=== PATIENT | female | born 1970 | race Caucasian/White ===

== ENCOUNTER 2021-02-06 09:05 | Emergency (ER) | payer OTHER, MEDICAID, SELFPAY ==
[2021-02-06] VITALS (51 sets, daily range): BP systolic 106–177; BP diastolic 55–86; PULSE 91–118; RESP 18–54; TEMP 36.5; O2SAT 86–96; BMI 40.7
--- NOTE | 2021-02-06 09:19 | DI.RAD.S_ITS ---
PROCEDURE: XR CHEST 1V INDICATIONS: dyspnea TECHNIQUE: One view of the chest was acquired. COMPARISON: [facility], CR, XR CHEST 2 VIEWS, 04/06/2018, 14:23. [facility], CT, CT ANGIO CHEST, 11/15/2017, 11:56. FINDINGS: Surgical changes and devices: None. Lungs and pleura: Patchy bilateral interstitial infiltrates are seen. No pleural effusions or pneumothorax. Mediastinum: Mediastinal contours appear normal. Heart size is mildly enlarged. Bones and chest wall: No suspicious bony lesions. Overlying soft tissues appear unremarkable. IMPRESSION: Bilateral interstitial infiltrates are seen, with mild cardiomegaly. Please consider COVID pneumonia versus CHF. Dictated by: Sky Ann M.D. on 02/06/2021 at 8:41 Approved by: Sky Ann M.D. on 02/06/2021 at 8:42
[2021-02-06] MEDS: ASPIRIN 81 MG CHEW TAB 324 MG PO (09:27)
[2021-02-06] MEDS: MORPHINE 4 MG/ML INJ IV ×3 (09:27→15:58)
[2021-02-06 09:38] LABS: COVID19 -Nasal RAPID Negative (Negative)
[2021-02-06] MEDS: ONDANSETRON 4 MG/2 ML INJ IV (09:42)
--- NOTE | 2021-02-06 09:48 | DI.CT.S_ITS ---
PROCEDURE: CT CHEST ABD PEL W CON INDICATIONS: LUQ pain with resp distress TECHNIQUE: After the administration of intravenous contrast, axial sections acquired from the supraclavicular neck to the pubic symphysis. Coronal and sagittal reformats were performed. For radiation dose reduction, the following was used: automated exposure control, adjustment of mA and/or kV according to patient size. COMPARISON: [facility], CT, CT ABDOMEN PELVIS WITH CONTRAST, 10/23/2017, 13:07. [facility], CT, CT ANGIO CHEST, 11/15/2017, 11:56. [facility], CR, XR CHEST 1V, 02/06/2021, 9:22. FINDINGS: Image quality: Excellent. CHEST: Lower Neck: No enlarged lymph nodes. Thyroid: There is a 1.7 cm low-density nodule seen within the right thyroid. Axillae: No enlarged lymph nodes. Chest Wall: Unremarkable. Lungs and Airways: Mild patchy areas ground-glass opacity/interstitial infiltrates are seen. No consolidation or suspicious nodules. Pleura: No pneumothorax. There is a trace left-sided pleural effusion. Heart: Heart size is mildly enlarged. No pericardial effusion. Thoracic Vessels: The aorta and pulmonary arteries demonstrate normal size. Mediastinum and Carole: No enlarged lymph nodes. Esophagus: No wall thickening. No hiatal hernia. ABDOMEN: Liver: Unremarkable. Gallbladder: Removed. Biliary ducts: Unremarkable. Pancreas: Unremarkable. Spleen: Splenomegaly is again seen, measuring 15 cm AP. Adrenal Glands: Unremarkable. Kidneys and Ureters: Unremarkable. The previously described left renal cyst is no longer seen. Stomach and Bowel: In this patient with this given history, scrutiny is given to bowel within the left upper quadrant. No significant abnormalities can be seen. No significant gastric abnormality can be seen. The small bowel loops and colon are unremarkable. A normal appendix is incidentally noted. Peritoneum: No abnormal intraperitoneal fluid. No free air. Ventral Wall: No hernia. Abdominal Nodes: No retroperitoneal or mesenteric adenopathy by size criteria. Vessels: Aorta and inferior vena cava are normal in size. PELVIS: Pelvic Organs: Unremarkable. The uterus appears normal for age. No adnexal masses are seen. The IUD is seen at its expected location. Bladder: Unremarkable. Pelvic Nodes: No enlarged lymph nodes. Miscellaneous: No inguinal hernias are seen. Bones: This patient has transitional lumbar anatomy. This patient has 12 pairs of ribs. The L5 level is transitional and highly sacralized on the right side. Focal degenerative change is seen at L4-L5 and L5-S1. IMPRESSION: Patchy ground-glass opacities/interstitial infiltrates are seen. In this patient with mild cardiomegaly, differential diagnosis includes pulmonary edema versus atypical infection (including COVID pneumonia). However, a history of a recent negative COVID test is given. Trace left-sided pleural effusion. A cause of left upper quadrant pain is not seen. 1.7 cm right thyroid low-density nodule seen. When clinically appropriate, please consider a dedicated thyroid ultrasound for further evaluation. Incidental note is made of: Cholecystectomy Splenomegaly, as before Resolution of the previously seen left renal cyst Normal appendix IUD Transitional lumbar anatomy Focal lower lumbar spine degenerative change Dictated by: Sky Ann M.D. on 02/06/2021 at 9:14 Approved by: Sky Ann M.D. on 02/06/2021 at 9:23
[2021-02-06 09:54] LABS: pH ABG 7.42 (7.35-7.45)
[2021-02-06 09:55] LABS: Fractionated Inspired Oxygen 40; HCO3 ABG 20 mmol/L (22-26); Oxygen Saturation ABG 89 % (95-100); PCO2 ABG 29.9 mmHg (35-45); PO2 ABG 54 mmHg (80-100); TCO2 ABG 20 mmol/L (21-31)
--- NOTE | 2021-02-06 09:55 | ED.GENADULT ---
HPI - General Adult General Chief complaint: Abdominal Pain Stated complaint: Severe pain in left Abd Time Seen by Provider: 02/06/21 09:05 History of Present Illness HPI narrative: 50-year-old woman with a history of pulmonary hypertension, congestive heart failure followed at the [facility], CPAP in the evening with 1-2 L of oxygen comes in complaining of severe left upper quadrant pain. Pain is been increasing for the last 4 days and she currently describes it as 10/10. It radiates through to the back and up into her chest. She feels that she is her usual short of breath but describes no specific chest pain or palpitations. She does not describe orthopnea. She feels that she is not more dyspneic than her baseline. She has had a couple episodes dry heaving secondary to pain but no overt emesis. She notes that a bowel movement slightly helped with pain and flatus definitely helps with the pain. She describes no increase in lower extremity edema. She has not had a headache. No fevers or cough. She did have COVID in December. Related Data Home Medications Medication Instructions Recorded Confirmed albuterol sulfate 90 mcg/actuation 90 mcg INHALATION BID 02/06/21 02/06/21 aerosol inhaler ambrisentan 10 mg tablet 10 mg PO DAILY 02/06/21 02/06/21 budesonide-formoterol HFA 160 1 puff INHALATION BID 02/06/21 02/06/21 mcg-4.5 mcg/actuation aerosol inhaler (Symbicort) bupropion HCl 150 mg 24 hr tablet, 150 mg PO DAILY 02/06/21 02/06/21 extended release fluoxetine 60 mg tablet 60 mg PO DAILY 02/06/21 02/06/21 furosemide 40 mg tablet 40 mg PO DAILY 02/06/21 02/06/21 levothyroxine 125 mcg tablet 125 mcg PO BID 02/06/21 02/06/21 potassium chloride 10 mEq 10 meq PO DAILY 02/06/21 02/06/21 tablet,extended release selexipag 800 mcg tablet (Uptravi) 800 mcg PO DAILY 02/06/21 02/06/21 spironolactone 50 mg tablet 50 mg PO DAILY 02/06/21 02/06/21 tadalafil (pulm. hypertension) 20 20 mg PO DAILY 02/06/21 02/06/21 mg tablet (pulmonary hypertension) Allergies Allergy/AdvReac Type Severity Reaction Status Date / Time Penicillins AdvReac Verified 02/06/21 09:27 Review of Systems Review of Systems Narrative: Remainder of complete review of systems is otherwise unremarkable except for that included in the HPI. Patient History Medical History (Updated 02/06/21 @ 16:30 by Poly Christianson MD) Congestive heart failure Morbid obesity Pulmonary hypertension Sleep apnea Social History Smoking Status: Current every day smoker Smoking Status: Current every day smoker alcohol intake frequency: a few times a week Alcohol type: hard liquor Substance Use Type: does not use Exam Narrative Exam Narrative: General: Chronically ill-appearing in significant distress clutching her left upper quadrant, history is augmented by her daughter secondary to patient's pain HEENT: Moist mucous membranes, normal sclera with reactive pupils, Neck: No JVD, supple Respiratory: Lungs with scattered crackles in all lung ellis but no dramatic wheezing or rhonchi. And symmetrical air movement Cardiac: Tachycardic but otherwise Regular rate and rhythm no murmurs no bruits Abdomen: Soft, significantly tender in the left upper quadrant without rebound or guarding. This pain does not extend into palpable pain up into the thorax. Good bowel tones, no flank pain Skin: Flushed and dry, no rashes Neurologic: Grossly neurologically intact with no obvious asymmetries or abnormalities Extremities: No trauma, well perfused, no lower extremity edema Psych: Cooperative, appropriate insight and affect Initial Vital Signs Initial Vital Signs: Vital Signs Temperature 97.7 F 02/06/21 09:14 Pulse Rate 118 H 02/06/21 09:14 Respiratory Rate 34 H 02/06/21 09:14 Blood Pressure 177/80 H 02/06/21 09:14 Pulse Oximetry 87 L 02/06/21 09:14 Course Orders Ordered: ED Orders 02/06/21 09:45 Respiratory Panel (Film Array) Stat 02/06/21 09:47 ABG [Arterial Blood Gas] Stat 02/06/21 09:48 CT chest abd pel w con Stat 02/06/21 10:01 High flow/High humidity nasal NOW 02/06/21 12:17 EKG-12 Lead Stat 02/06/21 16:28 COVID19 - ADMIT ([employer] swab/PCR) Stat Discontinued Medications Albuterol/Ipratropium (Albuterol/Ipratropium 3 Ml Ampul) 3 ml INH NOW ONE Stop: 02/06/21 12:49 Last Admin: 02/06/21 12:52 Dose: 3 ml Documented by: RK Aspirin (Aspirin 81 Mg Chew Tab) 324 mg PO NOW ONE Stop: 02/06/21 09:19 Last Admin: 02/06/21 09:27 Dose: 324 mg Documented by: CANDICE Budesonide (Budesonide 0.5 Mg/2 Ml Neb) 0.5 mg INH NOW ONE Stop: 02/06/21 12:49 Last Admin: 02/06/21 12:52 Dose: 0.5 mg Documented by: RK Furosemide (Furosemide 40 Mg/4 Ml Vial) 20 mg IV NOW ONE Stop: 02/06/21 16:07 Last Admin: 02/06/21 16:25 Dose: 20 mg Documented by: CANDICE Azithromycin 500 mg/ Dextrose 250 mls @ 250 mls/hr IV NOW ONE Stop: 02/06/21 16:07 Last Infusion: 02/06/21 18:28 Dose: 0 mls/hr Documented by: Admin: 02/06/21 17:25 Dose: 250 mls/hr Documented by: CANDICE Ceftriaxone Sodium 2,000 mg/ (Sodium Chloride) 100 mls @ 200 mls/hr IV NOW ONE Stop: 02/06/21 16:07 Last Infusion: 02/06/21 17:07 Dose: 0 mls/hr Documented by: Admin: 02/06/21 16:25 Dose: 200 mls/hr Documented by: CANDICE Methylprednisolone (Methylprednisolone 125 Mg/2 Ml Vial) 60 mg IV NOW ONE Stop: 02/06/21 14:55 Last Admin: 02/06/21 15:46 Dose: 60 mg Documented by: CANDICE Morphine Sulfate (Morphine 4 Mg/Ml Inj) 4 mg IV NOW ONE Stop: 02/06/21 09:19 Last Admin: 02/06/21 09:27 Dose: 4 mg Documented by: CANDICE Morphine Sulfate (Morphine 4 Mg/Ml Inj) 4 mg IV NOW ONE Stop: 02/06/21 12:45 Last Admin: 02/06/21 12:56 Dose: 4 mg Documented by: CANDICE Morphine Sulfate (Morphine 4 Mg/Ml Inj) 4 mg IV NOW ONE Stop: 02/06/21 12:46 Last Admin: 02/06/21 12:47 Dose: Not Given Documented by: SVETLANA Morphine Sulfate (Morphine 4 Mg/Ml Inj) 4 mg IV NOW ONE Stop: 02/06/21 15:56 Last Admin: 02/06/21 15:58 Dose: 4 mg Documented by: CANDICE Ondansetron HCl (Ondansetron 4 Mg/2 Ml Inj) 4 mg IV NOW ONE Stop: 02/06/21 09:39 Last Admin: 02/06/21 09:42 Dose: 4 mg Documented by: SVETLANA Potassium Chloride (Potassium Chloride 20 Meq Tab) 40 meq PO NOW ONE Stop: 02/06/21 14:55 Last Admin: 02/06/21 15:46 Dose: 40 meq Documented by: CANDICE Vital Signs Vital signs: Vital Signs - 8 hr 02/06/21 10:30 02/06/21 10:31 02/06/21 10:45 Pulse Rate 100 H 100 H 100 H Respiratory Rate 26 H 21 24 Blood Pressure 112/56 L 115/58 L Pulse Oximetry 91 91 02/06/21 11:00 02/06/21 11:11 02/06/21 11:15 Pulse Rate 101 H 100 H 101 H Respiratory Rate 21 24 21 Blood Pressure 118/57 L 115/58 L 121/58 L Pulse Oximetry 87 L 90 L 89 L 02/06/21 11:30 02/06/21 11:45 02/06/21 12:00 Pulse Rate 104 H 100 H 101 H Respiratory Rate 21 18 30 H Blood Pressure Pulse Oximetry 94 95 93 02/06/21 12:15 02/06/21 12:30 02/06/21 12:45 Pulse Rate 103 H 106 H 105 H Respiratory Rate 30 H 24 27 H Blood Pressure Pulse Oximetry 89 L 88 L 86 L 02/06/21 12:57 02/06/21 13:00 02/06/21 13:15 Pulse Rate 91 H 106 H 105 H Respiratory Rate 22 26 H 33 H Blood Pressure Pulse Oximetry 91 88 L 93 02/06/21 13:22 02/06/21 13:30 02/06/21 13:45 Pulse Rate 105 H 105 H 105 H Respiratory Rate 29 H 40 H 24 Blood Pressure 113/59 L 125/58 L Pulse Oximetry 93 96 92 02/06/21 14:00 02/06/21 14:15 02/06/21 14:30 Pulse Rate 105 H 105 H 105 H Respiratory Rate 22 32 H 35 H Blood Pressure 140/79 130/64 125/67 Pulse Oximetry 93 92 92 02/06/21 14:45 02/06/21 15:00 02/06/21 15:15 Pulse Rate 108 H 105 H 101 H Respiratory Rate 35 H 32 H 21 Blood Pressure 123/70 115/63 109/57 L Pulse Oximetry 90 L 88 L 92 02/06/21 15:30 02/06/21 15:45 02/06/21 16:00 Pulse Rate 102 H 106 H 104 H Respiratory Rate 26 H 33 H 40 H Blood Pressure 113/65 130/75 Pulse Oximetry 93 88 L 90 L 02/06/21 16:01 02/06/21 16:05 02/06/21 16:15 Pulse Rate 104 H 103 H 100 H Respiratory Rate 33 H 24 25 H Blood Pressure 133/70 133/81 Pulse Oximetry 88 L 90 L 93 02/06/21 16:16 02/06/21 16:30 02/06/21 16:45 Pulse Rate 100 H 100 H 110 H Respiratory Rate 53 H 31 H 54 H Blood Pressure 106/55 L 115/64 Pulse Oximetry 93 93 90 L 02/06/21 16:46 Pulse Rate 104 H Respiratory Rate 46 H Blood Pressure 140/76 Pulse Oximetry 90 L Medical Decision Making Lab Data Result diagrams: 02/06/21 09:28 02/06/21 09:28 Labs: Lab Results 02/06/21 02/06/21 02/06/21 Range/Units 09:15 09:28 09:28 WBC 5.2 (4.5-11.0) X10^3/uL RBC 3.75 L (4.0-5.2) X10^6/uL Hgb 10.1 L (12.0-16.0) g/dL Hct 30.9 L (36-46) % MCV 82.5 (80-100) fL MCH 27.0 (26-34) PG MCHC 32.7 (30-36) % RDW 16.5 H (11.6-14.8) % Plt Count 252 (150-400) X10^3/uL Neut % (Auto) 76.8 H (50-75) % Lymph % (Auto) 14.3 L (25-40) % [place] % (Auto) 7.7 (3-14) % Eos % (Auto) 0.9 L (2-4) % Baso % (Auto) 0.3 (0-2) % Neut # (Auto) 4000 (8102-8758) /uL Lymph # (Auto) 700 L (8384-3614) /uL [place] # (Auto) 400 (0-900) /uL Eos # (Auto) 0 (0-450) /uL Baso # (Auto) 0 (0-100) /uL PT 11.7 (10.1-12.7) SECONDS INR 1.1 (0.9-1.3) APTT 26 L (26.4-36.2) SECONDS ABG pH (7.35-7.45) ABG pCO2 (35-45) mmHg ABG pO2 (80-100) mmHg ABG HCO3 (22-26) mmol/L ABG Total CO2 (21-31) mmol/L ABG O2 Saturation (95-100) % ABG Base Excess (-2-2) mmol/L FiO2 Sodium (137-145) mmol/L Potassium (3.4-5.1) mmol/L Chloride (98-107) mmol/L Carbon Dioxide (22-32) mmol/L BUN (7-17) mg/dL Creatinine (0.52-1.04) mg/dL Estimated GFR (>60) mL/min BUN/Creatinine Ratio (6-22) Glucose (70-100) mg/dL Lactate (0.7-2.1) mmol/L Calcium (8.4-10.2) mg/dL Total Bilirubin (0.2-1.3) mg/dL AST (14-36) IU/L ALT (<35) IU/L Alkaline Phosphatase (38-126) U/L Troponin I (0.01-0.034) ng/mL NT-Pro-B Natriuret Pep (<125) pg/mL Total Protein (6.3-8.2) g/dL Albumin (3.5-5.0) g/dL Globulin (1.7-4.1) g/dL Albumin/Globulin Ratio (1.0-2.8) Lipase (23-300) U/L Chlamy pneumoniae PCR (Not Detect) Adenovirus (PCR) (Not Detect) B. pertussis DNA (PCR) (Not Detecte) B.parapertussis DNA PCR (Not Detecte) Coronavirus OC43 (PCR) (Not Detect) Coronavirus HKU1 (PCR) (Not Detect) Coronavirus 229E (PCR) (Not Detect) SARS-CoV-2 (PCR) Negative (Negative) Coronavirus NL63 (PCR) (Not Detect) Human Metapneumovir PCR (Not Detect) Influenza Type A (PCR) (Not Detect) Influenza Type B (PCR) (Not Detect) M. pneumoniae (PCR) (Not Detect) Parainfluenza 1 (PCR) (Not Detect) Parainfluenza 2 (PCR) (Not Detect) Parainfluenza 3 (PCR) (Not Detect) Parainfluenza 4 (PCR) (Not Detect) RSV (PCR) (Not Detect) Entero/Rhino (PCR) (Not Detect) 02/06/21 02/06/21 02/06/21 Range/Units 09:28 09:28 09:28 WBC (4.5-11.0) X10^3/uL RBC (4.0-5.2) X10^6/uL Hgb (12.0-16.0) g/dL Hct (36-46) % MCV (80-100) fL MCH (26-34) PG MCHC (30-36) % RDW (11.6-14.8) % Plt Count (150-400) X10^3/uL Neut % (Auto) (50-75) % Lymph % (Auto) (25-40) % [place] % (Auto) (3-14) % Eos % (Auto) (2-4) % Baso % (Auto) (0-2) % Neut # (Auto) (1266-6728) /uL Lymph # (Auto) (9926-6814) /uL [place] # (Auto) (0-900) /uL Eos # (Auto) (0-450) /uL Baso # (Auto) (0-100) /uL PT (10.1-12.7) SECONDS INR (0.9-1.3) APTT (26.4-36.2) SECONDS ABG pH (7.35-7.45) ABG pCO2 (35-45) mmHg ABG pO2 (80-100) mmHg ABG HCO3 (22-26) mmol/L ABG Total CO2 (21-31) mmol/L ABG O2 Saturation (95-100) % ABG Base Excess (-2-2) mmol/L FiO2 Sodium 131 L (137-145) mmol/L Potassium 3.1 L (3.4-5.1) mmol/L Chloride 98 (98-107) mmol/L Carbon Dioxide 22 (22-32) mmol/L BUN 6 L (7-17) mg/dL Creatinine 0.68 (0.52-1.04) mg/dL Estimated GFR > 60.0 (>60) mL/min BUN/Creatinine Ratio 8.8 (6-22) Glucose 83 (70-100) mg/dL Lactate 2.2 H (0.7-2.1) mmol/L Calcium 8.4 (8.4-10.2) mg/dL Total Bilirubin 0.5 (0.2-1.3) mg/dL AST 23 (14-36) IU/L ALT 13 (<35) IU/L Alkaline Phosphatase 99 (38-126) U/L Troponin I < 0.012 (0.01-0.034) ng/mL NT-Pro-B Natriuret Pep 129 H (<125) pg/mL Total Protein 7.8 (6.3-8.2) g/dL Albumin 3.7 (3.5-5.0) g/dL Globulin 4.1 (1.7-4.1) g/dL Albumin/Globulin Ratio 0.9 L (1.0-2.8) Lipase 92 (23-300) U/L Chlamy pneumoniae PCR (Not Detect) Adenovirus (PCR) (Not Detect) B. pertussis DNA (PCR) (Not Detecte) B.parapertussis DNA PCR (Not Detecte) Coronavirus OC43 (PCR) (Not Detect) Coronavirus HKU1 (PCR) (Not Detect) Coronavirus 229E (PCR) (Not Detect) SARS-CoV-2 (PCR) (Negative) Coronavirus NL63 (PCR) (Not Detect) Human Metapneumovir PCR (Not Detect) Influenza Type A (PCR) (Not Detect) Influenza Type B (PCR) (Not Detect) M. pneumoniae (PCR) (Not Detect) Parainfluenza 1 (PCR) (Not Detect) Parainfluenza 2 (PCR) (Not Detect) Parainfluenza 3 (PCR) (Not Detect) Parainfluenza 4 (PCR) (Not Detect) RSV (PCR) (Not Detect) Entero/Rhino (PCR) (Not Detect) 02/06/21 02/06/21 02/06/21 Range/Units 09:45 09:47 13:00 WBC (4.5-11.0) X10^3/uL RBC (4.0-5.2) X10^6/uL Hgb (12.0-16.0) g/dL Hct (36-46) % MCV (80-100) fL MCH (26-34) PG MCHC (30-36) % RDW (11.6-14.8) % Plt Count (150-400) X10^3/uL Neut % (Auto) (50-75) % Lymph % (Auto) (25-40) % [place] % (Auto) (3-14) % Eos % (Auto) (2-4) % Baso % (Auto) (0-2) % Neut # (Auto) (3260-4125) /uL Lymph # (Auto) (9337-9590) /uL [place] # (Auto) (0-900) /uL Eos # (Auto) (0-450) /uL Baso # (Auto) (0-100) /uL PT (10.1-12.7) SECONDS INR (0.9-1.3) APTT (26.4-36.2) SECONDS ABG pH 7.42 (7.35-7.45) ABG pCO2 29.9 L (35-45) mmHg ABG pO2 54 L (80-100) mmHg ABG HCO3 20 L (22-26) mmol/L ABG Total CO2 20 L (21-31) mmol/L ABG O2 Saturation 89 L (95-100) % ABG Base Excess -5.0 L (-2-2) mmol/L FiO2 40 Sodium (137-145) mmol/L Potassium (3.4-5.1) mmol/L Chloride (98-107) mmol/L Carbon Dioxide (22-32) mmol/L BUN (7-17) mg/dL Creatinine (0.52-1.04) mg/dL Estimated GFR (>60) mL/min BUN/Creatinine Ratio (6-22) Glucose (70-100) mg/dL Lactate 0.8 (0.7-2.1) mmol/L Calcium (8.4-10.2) mg/dL Total Bilirubin (0.2-1.3) mg/dL AST (14-36) IU/L ALT (<35) IU/L Alkaline Phosphatase (38-126) U/L Troponin I (0.01-0.034) ng/mL NT-Pro-B Natriuret Pep (<125) pg/mL Total Protein (6.3-8.2) g/dL Albumin (3.5-5.0) g/dL Globulin (1.7-4.1) g/dL Albumin/Globulin Ratio (1.0-2.8) Lipase (23-300) U/L Chlamy pneumoniae PCR Not detected (Not Detect) Adenovirus (PCR) Not detected (Not Detect) B. pertussis DNA (PCR) Not detected (Not Detecte) B.parapertussis DNA PCR Not detected (Not Detecte) Coronavirus OC43 (PCR) Not detected (Not Detect) Coronavirus HKU1 (PCR) Not detected (Not Detect) Coronavirus 229E (PCR) Not detected (Not Detect) SARS-CoV-2 (PCR) Not detected (Negative) Coronavirus NL63 (PCR) Not detected (Not Detect) Human Metapneumovir PCR Not detected (Not Detect) Influenza Type A (PCR) Not detected (Not Detect) Influenza Type B (PCR) Not detected (Not Detect) M. pneumoniae (PCR) Not detected (Not Detect) Parainfluenza 1 (PCR) Not detected (Not Detect) Parainfluenza 2 (PCR) Not detected (Not Detect) Parainfluenza 3 (PCR) Not detected (Not Detect) Parainfluenza 4 (PCR) Not detected (Not Detect) RSV (PCR) Not detected (Not Detect) Entero/Rhino (PCR) Not detected (Not Detect) 02/06/21 Range/Units 16:28 WBC (4.5-11.0) X10^3/uL RBC (4.0-5.2) X10^6/uL Hgb (12.0-16.0) g/dL Hct (36-46) % MCV (80-100) fL MCH (26-34) PG MCHC (30-36) % RDW (11.6-14.8) % Plt Count (150-400) X10^3/uL Neut % (Auto) (50-75) % Lymph % (Auto) (25-40) % [place] % (Auto) (3-14) % Eos % (Auto) (2-4) % Baso % (Auto) (0-2) % Neut # (Auto) (4541-7612) /uL Lymph # (Auto) (6373-6788) /uL [place] # (Auto) (0-900) /uL Eos # (Auto) (0-450) /uL Baso # (Auto) (0-100) /uL PT (10.1-12.7) SECONDS INR (0.9-1.3) APTT (26.4-36.2) SECONDS ABG pH (7.35-7.45) ABG pCO2 (35-45) mmHg ABG pO2 (80-100) mmHg ABG HCO3 (22-26) mmol/L ABG Total CO2 (21-31) mmol/L ABG O2 Saturation (95-100) % ABG Base Excess (-2-2) mmol/L FiO2 Sodium (137-145) mmol/L Potassium (3.4-5.1) mmol/L Chloride (98-107) mmol/L Carbon Dioxide (22-32) mmol/L BUN (7-17) mg/dL Creatinine (0.52-1.04) mg/dL Estimated GFR (>60) mL/min BUN/Creatinine Ratio (6-22) Glucose (70-100) mg/dL Lactate (0.7-2.1) mmol/L Calcium (8.4-10.2) mg/dL Total Bilirubin (0.2-1.3) mg/dL AST (14-36) IU/L ALT (<35) IU/L Alkaline Phosphatase (38-126) U/L Troponin I (0.01-0.034) ng/mL NT-Pro-B Natriuret Pep (<125) pg/mL Total Protein (6.3-8.2) g/dL Albumin (3.5-5.0) g/dL Globulin (1.7-4.1) g/dL Albumin/Globulin Ratio (1.0-2.8) Lipase (23-300) U/L Chlamy pneumoniae PCR (Not Detect) Adenovirus (PCR) (Not Detect) B. pertussis DNA (PCR) (Not Detecte) B.parapertussis DNA PCR (Not Detecte) Coronavirus OC43 (PCR) (Not Detect) Coronavirus HKU1 (PCR) (Not Detect) Coronavirus 229E (PCR) (Not Detect) SARS-CoV-2 (PCR) Negative (Negative) Coronavirus NL63 (PCR) (Not Detect) Human Metapneumovir PCR (Not Detect) Influenza Type A (PCR) (Not Detect) Influenza Type B (PCR) (Not Detect) M. pneumoniae (PCR) (Not Detect) Parainfluenza 1 (PCR) (Not Detect) Parainfluenza 2 (PCR) (Not Detect) Parainfluenza 3 (PCR) (Not Detect) Parainfluenza 4 (PCR) (Not Detect) RSV (PCR) (Not Detect) Entero/Rhino (PCR) (Not Detect) Point of Care Testing Test Results Negative Urine Dip Bedside Urine Glucose Negative Bedside Urine Bilirubin - Negative Bedside Urine Ketone - Negative Urine Specific [place] 1.010 Bedside Urine Occult Blood - Negative Bedside Urine pH 6.0 Bedside Urine Protein - Negative Bedside Urine Urobilinogen - Negative Bedside Urine Nitrite - Negative Bedside Urine Leukocytes - Negative Esterase Point of care testing: Point of Care Testing Test Results Negative Urine Dip Bedside Urine Glucose Negative Bedside Urine Bilirubin - Negative Bedside Urine Ketone - Negative Urine Specific [place] 1.010 Bedside Urine Occult Blood - Negative Bedside Urine pH 6.0 Bedside Urine Protein - Negative Bedside Urine Urobilinogen - Negative Bedside Urine Nitrite - Negative Bedside Urine Leukocytes - Negative Esterase Imaging Data Chest x-ray: Radiologist's Impression: FINDINGS:? ? Surgical changes and devices:? None.? ? Lungs and pleura:? Patchy bilateral interstitial infiltrates are seen.? No pleural effusions or pneumothorax.? ? Mediastinum:? Mediastinal contours appear normal.? Heart size is mildly enlarged.? ? Bones and chest wall:? No suspicious bony lesions.? Overlying soft tissues appear unremarkable.? IMPRESSION:? Bilateral interstitial infiltrates are seen, with mild cardiomegaly.? Please consider COVID pneumonia versus CHF.? ? ? Dictated by: Sky Ann M.D. on 02/06/2021 at 8:41 ? ? CT scan - abdomen/pelvis: Radiologist's Impression: FINDINGS:? Image quality:? Excellent.? ? CHEST: Lower Neck: No enlarged lymph nodes.? Thyroid:? There is a 1.7 cm low-density nodule seen within the right thyroid. Axillae: No enlarged lymph nodes. Chest Wall:? Unremarkable.? ? Lungs and Airways:? Mild patchy areas ground-glass opacity/interstitial infiltrates are seen.? No consolidation or suspicious nodules. Pleura: No pneumothorax.? There is a trace left-sided pleural effusion.? ? Heart: Heart size is mildly enlarged.? No pericardial effusion. Thoracic Vessels: The aorta and pulmonary arteries demonstrate normal size.? Mediastinum and Carole: No enlarged lymph nodes.? Esophagus: No wall thickening. No hiatal hernia. ? ? ABDOMEN: Liver:? Unremarkable.? ? Gallbladder:? Removed.? ? Biliary ducts:? Unremarkable.? ? Pancreas:? Unremarkable.? ? Spleen:? Splenomegaly is again seen, measuring 15 cm AP. Adrenal Glands:? Unremarkable.? ? Kidneys and Ureters:? Unremarkable.? ? The previously described left renal cyst is no longer seen. ? Stomach and Bowel:? In this patient with this given history, scrutiny is given to bowel within the left upper quadrant.? No significant abnormalities can be seen.? No significant gastric abnormality can be seen.? The small bowel loops and colon are unremarkable.? A normal appendix is incidentally noted.? Peritoneum:? No abnormal intraperitoneal fluid.? No free air.? ? Ventral Wall: ? No hernia.? Abdominal Nodes:? No retroperitoneal or mesenteric adenopathy by size criteria.? Vessels:? Aorta and inferior vena cava are normal in size.? ? PELVIS: Pelvic Organs:? Unremarkable.? ? The uterus appears normal for age.? No adnexal masses are seen.? The IUD is seen at its expected location.? Bladder:? Unremarkable.? ? Pelvic Nodes: No enlarged lymph nodes.? Miscellaneous: No inguinal hernias are seen. ? ? ? Bones:? This patient has transitional lumbar anatomy.? This patient has 12 pairs of ribs. ?The L5 level is transitional and highly sacralized on the right side.? Focal degenerative change is seen at L4-L5 and L5-S1. ? ? IMPRESSION:? Patchy ground-glass opacities/interstitial infiltrates are seen.? In this patient with mild cardiomegaly, differential diagnosis includes pulmonary edema versus atypical infection (including COVID pneumonia).? However, a history of a recent negative COVID test is given. ? Trace left-sided pleural effusion. ? A cause of left upper quadrant pain is not seen. ? 1.7 cm right thyroid low-density nodule seen.? When clinically appropriate, please consider a dedicated thyroid ultrasound for further evaluation. ? Incidental note is made of: Cholecystectomy Splenomegaly, as before Resolution of the previously seen left renal cyst Normal appendix IUD Transitional lumbar anatomy Focal lower lumbar spine degenerative change ? Dictated by: Sky Ann M.D. on 02/06/2021 at 9:14 ? ? ECG Data Interpretation: Sinus rhythm, sinus tachycardia at 108 Poor baseline Prolonged QT at 664 No acute ischemic changes MDM Narrative Medical decision making narrative: 50-year-old woman with COPD D, pulmonary hypertension presents with severe left upper quadrant pain. Workup is relatively unremarkable. White blood cell count is not significantly elevated, her mild anemia at 10.1 and 30.9 seems chronic. Initial ABG shows a pH of 7.42 CO2 of 29.9 0 to at 54 on 40% FiO2 and bicarb of 20. Chemistry show mild hypokalemia. Lactic acid is minimally elevated and will be repeated. ProBNP is normal clinical exam does not suggest congestive heart failure. EKG does not suggest congestive heart failure in troponin is unremarkable. Pain is been adequately controlled at this time. She continues to have significant oxygenation needs and is currently on high-flow oxygen at 55 L and 50% currently at 95%. 1pm She was COVID positive in December and complete respiratory panel today shows no respiratory viruses including COVID. CT scan of chest abdomen and pelvis does not show a significant etiology for the severe left upper quadrant pain. Will discuss her care with her fuel pilot engineer at the [facility] 3pm will repage pulmonary. Patient was improve slightly with a DuoNeb however currently on 60 L and 60% with sats in the now upper 90 range. 310 call from RN at transfer center, will page pulmonology. Clinical data shared. 4pm Dr Koehler, pulmonary. Does recommend adding prophylactic antibiotics in the form of azithromycin and ceftriaxone. I reviewed fluid status and he did agree that 20 mg of IV Lasix would be a reasonable thing to add knowing that we can always add back in fluids if required. He agrees that transfer based on acute respiratory distress in setting of pulmonary hypertension does make sense and will check on bed status. Given the CT scan findings and chest x-ray appearance still most likely thing is a viral pneumonia etiology. He recommended a 2nd COVID test for confirmation of negativity. 420 updates reviewed with patient. She has not been vaccinated for COVID. She states that she has had the actual disease twice most recently in December. She had rapid PCR test as well as an extended viral panel both COVID negative today. We have an additional PCR test we typically use for our hospital admissions that we will again due to confirm negative COVID. 425 Dr Koehler, pulmonary. Can accept for transfer 5:38 all 3 PCR COVID tests available at this hospital are negative for COVID. Room is available and transport will be initiated. Will switch her from high-flow oxygen to BiPAP for transport Critical Care Time Critical Care Time Critical Care Time: Yes Total Critical Care Time: 44 Attestation: Critical care time is separate from other billable procedures. There is a high probability of a significant, sudden or life-threatening deterioration that requires my full and direct attention, intervention and personal management. This critical care time includes consultation with family and other consulting doctors, review of records, and interpretation of data from labs, EKGs and imaging as well as managements of acute respiratory failure uncertain etiology Discharge Plan Departure Patient Disposition: [facility] Clinical Impression: Pulmonary hypertension, Congestive heart failure, Morbid obesity, Sleep apnea Respiratory failure Qualifiers: Chronicity: acute Respiratory failure complication: hypoxia Qualified Code(s): J96.01 - Acute respiratory failure with hypoxia Prescriptions: No Action furosemide 40 mg tablet 40 mg PO DAILY 0RF potassium chloride 10 mEq tablet extended release 10 meq PO DAILY 0RF levothyroxine 125 mcg tablet 125 mcg PO BID 0RF albuterol sulfate 90 mcg/actuation HFA aerosol inhaler 90 mcg INHALATION BID 0RF spironolactone 50 mg tablet 50 mg PO DAILY 0RF bupropion HCl 150 mg tablet extended release 24 hr 150 mg PO DAILY 0RF budesonide-formoterol [Symbicort] 160-4.5 mcg/actuation HFA aerosol inhaler 1 puff INHALATION BID 0RF ambrisentan 10 mg tablet 10 mg PO DAILY 0RF fluoxetine 60 mg tablet 60 mg PO DAILY 0RF Uptravi 800 mcg tablet 800 mcg PO DAILY 0RF tadalafil (pulm. hypertension) 20 mg tablet 20 mg PO DAILY 0RF
--- NOTE | 2021-02-06 09:56 | PC.NURSE ---
Pt arrived clutching LUQ abdomen. Wretching and vomiting bile. reports pain that started on the R 4 days ago and progressed to L. h/o pulm htn and CHF. tachypneic in 30's and SPO2 84-87%. states she uses CPAP on 4.2L at night. placed on 5L NC with sats 88-92%. rapid covid negative and RT called to place pt on HHFNC instead of bipap d/t concern for vomiting.
[2021-02-06 09:59] LABS: Add Manual Diff / Slide Review NO; Basophils Absolute Auto 0 /uL (0-100); Basophils Percent Auto 0.3 % (0-2); Eosinophils Absolute Auto 0 /uL (0-450); Eosinophils Percent Auto 0.9 % (2-4); Hematocrit 30.9 % (36-46); Hemoglobin 10.1 g/dL (12.0-16.0); Lymphocytes Absolute Auto 700 /uL (1100-4500); Lymphocytes Percent Auto 14.3 % (25-40); Mean Corpuscular HGB Conc 32.7 % (30-36); Mean Corpuscular Volume 82.5 fL (80-100); Monocytes Absolute Auto 400 /uL (0-900); Monocytes Percent Auto 7.7 % (3-14); Neutrophils Absolute Auto 4000 /uL (1500-7000); Neutrophils Percent Auto 76.8 % (50-75); Platelet Count 252 X10^3/uL (150-400); Red Blood Cell Count 3.75 X10^6/uL (4.0-5.2); Red Cell Distribution Width 16.5 % (11.6-14.8); White Blood Cell Count 5.2 X10^3/uL (4.5-11.0)
[2021-02-06 10:02] LABS: INR 1.1 (0.9-1.3); Prothrombin Time 11.7 SECONDS (10.1-12.7)
[2021-02-06 10:05] LABS: PTT Partial Thromboplastin Tim 26 SECONDS (26.4-36.2)
[2021-02-06 10:06] LABS: Alanine Aminotransferase 13 IU/L (<35); Albumin 3.7 g/dL (3.5-5.0); Albumin Globulin Ratio 0.9 (1.0-2.8); Alkaline Phosphatase 99 U/L (38-126); Aspartate Aminotransferase 23 IU/L (14-36); BUN Creatinine Ratio 8.8 (6-22); Bilirubin Total 0.5 mg/dL (0.2-1.3); Blood Urea Nitrogen 6 mg/dL (7-17); Calcium 8.4 mg/dL (8.4-10.2); Carbon Dioxide 22 mmol/L (22-32); Chloride 98 mmol/L (98-107); Estimated Glomerular Filt Rate > 60.0 mL/min (>60); Globulin 4.1 g/dL (1.7-4.1); Glucose 83 mg/dL (70-100); HEMOLYSIS < 15 (0-50); Lactate (Lactic Acid) 2.2 mmol/L (0.7-2.1); Lipase 92 U/L (23-300); Potassium 3.1 mmol/L (3.4-5.1); Sodium 131 mmol/L (137-145); Total Protein 7.8 g/dL (6.3-8.2)
[2021-02-06 10:18] LABS: NT-proBNP (BNP-Adult 18+) 129 pg/mL (<125); Troponin I < 0.012 ng/mL (0.01-0.034)
[2021-02-06 10:46] LABS: Adenovirus Not Detected (Not Detect); Coronavirus 229E Not Detected (Not Detect); Coronavirus HKU1 Not Detected (Not Detect); Coronavirus NL 63 Not Detected (Not Detect); Coronavirus OC43 Not Detected (Not Detect); Human Metapneumovirus Not Detected (Not Detect); SARS- CoV-2 Not Detected (Not Detecte)
[2021-02-06 10:47] LABS: B. parapertussis Not Detected (Not Detecte); Bordetella pertussis Not Detected (Not Detecte); Chlamydophila pneumoniae Not Detected (Not Detect); Human Rhinovirus/Enterovirus Not Detected (Not Detect); Influenza A Not Detected (Not Detect); Influenza B Not Detected (Not Detect); Mycoplasma pneumoniae Not Detected (Not Detect); Parainfluenza Virus 1 Not Detected (Not Detect); Parainfluenza Virus 2 Not Detected (Not Detect); Parainfluenza Virus 3 Not Detected (Not Detect); Parainfluenza Virus 4 Not Detected (Not Detect); Respiratory Syncytial Virus Not Detected (Not Detect)
[2021-02-06 11:49] LABS: Reflexed Lactate in 2 Hours Y
[2021-02-06] MEDS: BUDESONIDE 0.5 MG/2 ML NEB INH (12:52)
[2021-02-06] MEDS: ALBUTEROL/IPRATROPIUM 3 ML AMPUL INH (12:52)
[2021-02-06 13:21] LABS: Lactate 2HR (Lactic Acid Rflx) 0.8 mmol/L (0.7-2.1)
[2021-02-06] MEDS: POTASSIUM CHLORIDE 20 MEQ TAB 40 MEQ PO (15:46)
[2021-02-06] MEDS: methylPREDNISolone 125 MG/2 ML VIAL 60 MG IV (15:46)
[2021-02-06] MEDS: cefTRIAXone 2,000 MG in SODIUM CHLORIDE 0.9% 100 ML 200 ML IV (16:25)
[2021-02-06] MEDS: FUROSEMIDE 40 MG/4 ML VIAL 20 MG IV (16:25)
[2021-02-06 17:19] LABS: COVID19 - ADMIT (NP swab/PCR) Negative (Negative)
[2021-02-06] MEDS: AZITHROMYCIN 500 MG in DEXTROSE 5% IN WATER 250 ML IV (17:25)
== END 2021-02-06 19:01 | disposition short-term general hospital (02) ==
PROVIDERS: Emergency Provider Emergency Medicine
DX: R10.12 Left upper quadrant pain (principal); J96.01 Acute respiratory failure with hypoxia; I27.20 Pulmonary hypertension, unspecified; I50.9 Heart failure, unspecified; E66.01 Morbid (severe) obesity due to excess calories; R00.0 Tachycardia, unspecified; Z68.41 Body mass index [BMI] 40.0-44.9, adult; F17.200 Nicotine dependence, unspecified, uncomplicated; Z20.822 Contact with and (suspected) exposure to COVID-19
CPT/HCPCS: 36415; 36600; 71045; 71260; 74177; 80053; 81003; 81025; 82805; 83605; 83690; 83880; 84484; 85025; 85610; 85730; 87040; 87633; 87635; 93005; 94640; 96365; 96367; 96375; 96376; 99285; 99291; 99292; C9803; J0696; J1940; J2270; J2405; J2930; Q9967

== ENCOUNTER 2022-02-03 14:20 | Observation (INO) | payer OTHER, MEDICAID, SELFPAY ==
[2022-02-03] VITALS (28 sets, daily range): BP systolic 96–149; BP diastolic 54–75; PULSE 89–111; RESP 17–34; TEMP 36.3; O2SAT 87–95; BMI 35.5
--- NOTE | 2022-02-03 14:56 | DI.RAD.S_ITS ---
PROCEDURE: XR CHEST 1V INDICATIONS: chest pain TECHNIQUE: One view of the chest was acquired. COMPARISON: [facility], CR, XR CHEST 1V, 02/06/2021, 9:22. FINDINGS: Surgical changes and devices: None. Lungs and pleura: Diffuse interstitial prominence. No focal consolidation. Likely small bilateral pleural effusions. Small amount of fluid layering along the right minor fissure. No pneumothorax. Mediastinum: Mediastinal contours appear stable. Heart size is enlarged. Bones and chest wall: No suspicious bony lesions. Overlying soft tissues appear unremarkable. IMPRESSION: Cardiomegaly with findings suggestive of possible early CHF/pulmonary edema. Concurrent infectious or inflammatory process not excluded if clinically appropriate. Dictated by: Cornell Rome M.D. on 02/03/2022 at 15:37 Approved by: Cornell Rome M.D. on 02/03/2022 at 15:38
--- NOTE | 2022-02-03 15:06 | ED.SOB ---
HPI - SOB/Dyspnea <Vlad Devine PA-C - Last Filed: 02/03/22 18:59> General Chief Complaint: Shortness of Breath/Dyspnea Stated Complaint: Thinks blood clot Time Seen by Provider: 02/03/22 14:23 Source: patient Mode of arrival: Ambulatory Limitations: no limitations History of Present Illness HPI Narrative: This is a 51-year-old female presents emergency department due to right-sided chest pain onset approximately 10 hours ago at 5:00 a.m. this morning. Patient states that she was seen a week ago by [facility] walk-in clinic and treated for suspected pneumonia with oral antibiotics, patient is unsure of exact antibiotic but states Cefdinir. Also given oral steroids as well as a DuoNeb which she has been using. Patient reports that the pain is worse with deep breathing. Denies any left-sided chest pain, left arm pain, nausea, vomiting, fevers, or any other concerning signs or symptoms. Patient has a history of COPD, uses CPAP machine at night. States that her baseline O2 is at 86-89%. Patient reports a similar episode happening 12 months ago where she was eventually transferred to pulmonology due to a PE. Patient was unable to state cause of PE. Was placed on eliquis on discharge and stopped taking 2 months ago due to spontaneous bleeding in her abdomen.. History of CHF, and pulmonary hypertension. Reports being tested negative for influenza and COVID. 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 Quick at [facility]. Related Data Home Medications Medication Instructions Recorded Confirmed albuterol sulfate 90 mcg/actuation 90 mcg inhalation BID 02/06/21 02/06/21 aerosol inhaler ambrisentan 10 mg tablet 10 mg PO DAILY 02/06/21 02/06/21 budesonide-formoterol HFA 160 1 puff inhalation BID 02/06/21 02/06/21 mcg-4.5 mcg/actuation aerosol inhaler (Symbicort) bupropion HCl 150 mg 24 hr tablet, 150 mg PO DAILY 02/06/21 02/06/21 extended release fluoxetine 60 mg tablet 60 mg PO DAILY 02/06/21 02/06/21 furosemide 40 mg tablet 40 mg PO DAILY 02/06/21 02/06/21 levothyroxine 125 mcg tablet 125 mcg PO BID 02/06/21 02/06/21 potassium chloride 10 mEq 10 meq PO DAILY 02/06/21 02/06/21 tablet,extended release selexipag 800 mcg tablet (Uptravi) 800 mcg PO DAILY pulmonary 02/06/21 02/06/21 hypertension spironolactone 50 mg tablet 50 mg PO DAILY 02/06/21 02/06/21 tadalafil (pulm. hypertension) 20 20 mg PO DAILY 02/06/21 02/06/21 mg tablet (pulmonary hypertension) Allergies Allergy/AdvReac Type Severity Reaction Status Date / Time Penicillins AdvReac Verified 02/06/21 09:27 Review of Systems <Vlad Devine PA-C - Last Filed: 02/03/22 18:59> Review of Systems Narrative: GENERAL: Denies chills, fatigue, malaise, fever, sweats. HEENT: Denies sinus pain, ear pain, sore throat, difficulty swallowing, dizziness. RESPIRATORY: Reports shortness of breath, denies cough, wheezing, hemoptysis, sputum. CARDIOVASCULAR: Reports right-sided chest pain, denies palpitations, edema, GASTROINTESTINAL: Denies nausea, vomiting, abdominal pain, diarrhea, constipation, melena. : Denies dysuria, frequency, incontinence, hematuria, urinary retention. MUSCULOSKELETAL: denies weakness, joint pain, or bony pain SKIN: Denies rash, skin lesions, or other NEUROLOGIC: Denies weakness, headache, numbness, change in speech, confusion, seizures, incoordination. PSYCHIATRIC: No concerning psychosocial issues. 12 point review of systems is negative except for those stated above Patient History <Vlad Devine PA-C - Last Filed: 02/03/22 18:59> Medical History (Updated 02/03/22 @ 18:59 by Vlad Devine PA-C) Congestive heart failure Morbid obesity Pulmonary hypertension Sleep apnea Social History Smoking Status: Current every day smoker Smoking Status: Current every day smoker alcohol intake frequency: a few times a week Alcohol type: hard liquor Substance Use Type: does not use Exam <Vlad Devine PA-C - Last Filed: 02/03/22 18:59> Narrative Exam Narrative: GENERAL: Well-developed patient, in mild distress. HEAD: Atraumatic. Normocephalic. EYES: Pupils equal round and reactive. Extraocular motions intact. No scleral icterus. No injection or drainage. ENT: Nose without bleeding, purulent drainage. Throat without erythema, tonsillar hypertrophy or exudate. Airway patent. NECK: Trachea midline. Non tender CARDIOVASCULAR: Regular rate and rhythm without murmurs, gallops, or rubs. RESPIRATORY: Faint expiratory wheezes and rhonchi bilaterally. GASTROINTESTINAL: Abdomen soft, non-tender, nondistended. EXTREMITIES: No edema or joint tenderness. BACK: Nontender without deformity or crepitance. No flank tenderness. NEURO: AOx3. SKIN: No rash or erythema of visible areas Initial Vital Signs Initial Vital Signs: Vital Signs Temperature 97.4 F L 02/03/22 14:49 Pulse Rate 95 H 02/03/22 14:49 Respiratory Rate 22 02/03/22 14:49 Blood Pressure 100/61 02/03/22 14:49 Pulse Oximetry 91 02/03/22 14:49 Oxygen Delivery Method 02/03/22 14:49 <Opal Vergara DO - Last Filed: 02/03/22 19:31> Initial Vital Signs Initial Vital Signs: Vital Signs Temperature 97.4 F L 02/03/22 14:49 Pulse Rate 95 H 02/03/22 14:49 Respiratory Rate 22 02/03/22 14:49 Blood Pressure 100/61 02/03/22 14:49 Pulse Oximetry 91 02/03/22 14:49 Oxygen Delivery Method 02/03/22 14:49 Course <Vlad Devine PA-C - Last Filed: 02/03/22 18:59> Orders Ordered: ED Orders 02/03/22 13:36 Blood Culture Stat 02/03/22 14:56 XR chest 1V Stat EKG-12 Lead Stat 02/03/22 15:00 BNP [NT-proBNP (BNP-Adult 18+)] Stat Complete Blood Count AUTO DIFF Stat Comprehensive Metabolic Panel Stat Covid-19 + FLU A/B + RSV - PCR Stat D Dimer Stat Lactate (Lactic Acid) Stat Lipase Stat Lipase Stat Magnesium Stat Partial Thromboplastin Time Stat Procalcitonin Stat Prothrombin Time INR Stat Troponin & CK Cardiac Panel Stat 02/03/22 15:40 CT angio chest PE protocol Stat 02/03/22 17:26 Troponin I Stat 02/03/22 18:52 ABG [Arterial Blood Gas] Stat Levofloxacin (Levaquin) 750 mg in 150 mls @ 100 mls/hr IV NOW ONE Stop: 02/03/22 19:36 Last Admin: 02/03/22 18:51 Dose: 100 mls/hr Documented By: AT Ondansetron HCl (Ondansetron 4 Mg/2 Ml Inj) 4 mg IV NOW PRN PRN Reason: Nausea And Vomiting Ondansetron HCl (Ondansetron 4 Mg Odt) 4 mg SL NOW PRN PRN Reason: Nausea And Vomiting Discontinued Medications Albuterol/Ipratropium (Albuterol/Ipratropium 3 Ml Ampul) 3 ml INH NOW ONE Stop: 02/03/22 17:24 Last Admin: 02/03/22 17:31 Dose: 3 ml Documented By: NORI Furosemide (Furosemide 40 Mg/4 Ml Vial) 40 mg IV NOW ONE Stop: 02/03/22 18:43 Last Admin: 02/03/22 18:50 Dose: Not Given Documented By: AT Sodium Chloride (Normal Saline 0.9%) 1,000 mls @ 1,000 mls/hr IV BOLUS ONE Stop: 02/03/22 15:58 Last Infusion: 02/03/22 17:13 Dose: 0 mls/hr Documented By: Admin: 02/03/22 16:11 Dose: 1,000 mls/hr Documented By: DON Magnesium Chloride (Magnesium Chloride 64 Mg Tablet) 128 mg PO NOW ONE Stop: 02/03/22 15:53 Last Admin: 02/03/22 16:10 Dose: 128 mg Documented By: DON Potassium Chloride (Potassium Chloride 20 Meq/15 Ml Udc) 20 meq PO NOW ONE Stop: 02/03/22 15:53 Last Admin: 02/03/22 16:10 Dose: 20 meq Documented By: DON Vital Signs Vital signs: Vital Signs - 8 hr 02/03/22 14:49 02/03/22 15:05 02/03/22 15:44 Temperature 97.4 F L Pulse Rate 95 H 96 H 96 H Respiratory Rate 22 18 24 Blood Pressure 100/61 106/59 L 135/71 Pulse Oximetry 91 87 L 91 Oxygen Delivery Method Room Air Room Air Nasal Cannula Oxygen Flow Rate 4 02/03/22 15:43 02/03/22 15:57 02/03/22 16:00 Temperature Pulse Rate 96 H 94 H Respiratory Rate 34 H 17 Blood Pressure 135/71 Pulse Oximetry 91 91 Oxygen Delivery Method Nasal Cannula Oxygen Flow Rate 4 02/03/22 16:25 02/03/22 16:26 02/03/22 16:25 Temperature Pulse Rate 90 Respiratory Rate 24 Blood Pressure Pulse Oximetry 89 L 92 91 Oxygen Delivery Method Nasal Cannula Nasal Cannula Nasal Cannula Oxygen Flow Rate 4 5 5 02/03/22 16:25 02/03/22 16:30 02/03/22 16:30 Temperature Pulse Rate 90 Respiratory Rate Blood Pressure 115/68 112/58 L Pulse Oximetry 91 Oxygen Delivery Method Nasal Cannula Oxygen Flow Rate 5 02/03/22 17:00 02/03/22 17:06 02/03/22 17:06 Temperature Pulse Rate 106 H 93 H Respiratory Rate Blood Pressure 149/72 H Pulse Oximetry 91 Oxygen Delivery Method Nasal Cannula Oxygen Flow Rate 5 02/03/22 17:31 02/03/22 17:30 02/03/22 17:30 Temperature Pulse Rate 96 H 89 Respiratory Rate 24 Blood Pressure 123/75 Pulse Oximetry 90 L 90 L Oxygen Delivery Method Oximask Oxygen Flow Rate 6 5 02/03/22 18:00 02/03/22 18:00 02/03/22 18:30 Temperature Pulse Rate 93 H Respiratory Rate Blood Pressure 120/73 118/73 Pulse Oximetry 90 L Oxygen Delivery Method Oximask Oxygen Flow Rate 5 02/03/22 18:30 Temperature Pulse Rate 92 H Respiratory Rate Blood Pressure Pulse Oximetry 88 L Oxygen Delivery Method Oximask Oxygen Flow Rate 5 <Opal Vergara, DO - Last Filed: 02/03/22 19:31> Orders Ordered: ED Orders 02/03/22 13:36 Blood Culture Stat 02/03/22 14:56 XR chest 1V Stat EKG-12 Lead Stat 02/03/22 15:00 BNP [NT-proBNP (BNP-Adult 18+)] Stat Complete Blood Count AUTO DIFF Stat Comprehensive Metabolic Panel Stat Covid-19 + FLU A/B + RSV - PCR Stat D Dimer Stat Lactate (Lactic Acid) Stat Lipase Stat Lipase Stat Magnesium Stat Partial Thromboplastin Time Stat Procalcitonin Stat Prothrombin Time INR Stat Troponin & CK Cardiac Panel Stat 02/03/22 15:40 CT angio chest PE protocol Stat 02/03/22 17:26 Troponin I Stat 02/03/22 18:52 ABG [Arterial Blood Gas] Stat Levofloxacin (Levaquin) 750 mg in 150 mls @ 100 mls/hr IV NOW ONE Stop: 12/29/22 19:36 Last Admin: 02/03/22 18:51 Dose: 100 mls/hr Documented By: AT Ondansetron HCl (Ondansetron 4 Mg/2 Ml Inj) 4 mg IV NOW PRN PRN Reason: Nausea And Vomiting Ondansetron HCl (Ondansetron 4 Mg Odt) 4 mg SL NOW PRN PRN Reason: Nausea And Vomiting Discontinued Medications Albuterol/Ipratropium (Albuterol/Ipratropium 3 Ml Ampul) 3 ml INH NOW ONE Stop: 02/03/22 17:24 Last Admin: 02/03/22 17:31 Dose: 3 ml Documented By: NORI Furosemide (Furosemide 40 Mg/4 Ml Vial) 40 mg IV NOW ONE Stop: 02/03/22 18:43 Last Admin: 02/03/22 18:50 Dose: Not Given Documented By: AT Sodium Chloride (Normal Saline 0.9%) 1,000 mls @ 1,000 mls/hr IV BOLUS ONE Stop: 02/03/22 15:58 Last Infusion: 02/03/22 17:13 Dose: 0 mls/hr Documented By: Admin: 02/03/22 16:11 Dose: 1,000 mls/hr Documented By: DON Magnesium Chloride (Magnesium Chloride 64 Mg Tablet) 128 mg PO NOW ONE Stop: 02/03/22 15:53 Last Admin: 02/03/22 16:10 Dose: 128 mg Documented By: DON Potassium Chloride (Potassium Chloride 20 Meq/15 Ml Udc) 20 meq PO NOW ONE Stop: 02/03/22 15:53 Last Admin: 02/03/22 16:10 Dose: 20 meq Documented By: DON Vital Signs Vital signs: Vital Signs - 8 hr 02/03/22 14:49 02/03/22 15:05 02/03/22 15:44 Temperature 97.4 F L Pulse Rate 95 H 96 H 96 H Respiratory Rate 22 18 24 Blood Pressure 100/61 106/59 L 135/71 Pulse Oximetry 91 87 L 91 Oxygen Delivery Method Room Air Room Air Nasal Cannula Oxygen Flow Rate 4 02/03/22 15:43 02/03/22 15:57 02/03/22 16:00 Temperature Pulse Rate 96 H 94 H Respiratory Rate 34 H 17 Blood Pressure 135/71 Pulse Oximetry 91 91 Oxygen Delivery Method Nasal Cannula Oxygen Flow Rate 4 02/03/22 16:25 02/03/22 16:26 02/03/22 16:25 Temperature Pulse Rate 90 Respiratory Rate 24 Blood Pressure Pulse Oximetry 89 L 92 91 Oxygen Delivery Method Nasal Cannula Nasal Cannula Nasal Cannula Oxygen Flow Rate 4 5 5 02/03/22 16:25 02/03/22 16:30 02/03/22 16:30 Temperature Pulse Rate 90 Respiratory Rate Blood Pressure 115/68 112/58 L Pulse Oximetry 91 Oxygen Delivery Method Nasal Cannula Oxygen Flow Rate 5 02/03/22 17:00 02/03/22 17:06 02/03/22 17:06 Temperature Pulse Rate 106 H 93 H Respiratory Rate Blood Pressure 149/72 H Pulse Oximetry 91 Oxygen Delivery Method Nasal Cannula Oxygen Flow Rate 5 02/03/22 17:31 02/03/22 17:30 02/03/22 17:30 Temperature Pulse Rate 96 H 89 Respiratory Rate 24 Blood Pressure 123/75 Pulse Oximetry 90 L 90 L Oxygen Delivery Method Oximask Oxygen Flow Rate 6 5 02/03/22 18:00 02/03/22 18:00 02/03/22 18:30 Temperature Pulse Rate 93 H Respiratory Rate Blood Pressure 120/73 118/73 Pulse Oximetry 90 L Oxygen Delivery Method Oximask Oxygen Flow Rate 5 02/03/22 18:30 Temperature Pulse Rate 92 H Respiratory Rate Blood Pressure Pulse Oximetry 88 L Oxygen Delivery Method Oximask Oxygen Flow Rate 5 MDM - SOB/Dyspnea <Vlad Devine PA-C - Last Filed: 02/03/22 18:59> Lab Data Result diagrams: 02/03/22 15:00 02/03/22 15:00 Labs: Lab Results 02/03/22 02/03/22 02/03/22 Range/Units 15:00 15:00 15:00 WBC 2.7 L (4.5-11.0) X10^3/uL RBC 2.80 L (4.0-5.2) X10^6/uL Hgb 10.6 L (12.0-16.0) g/dL Hct 29.5 L (36-46) % MCV 105.5 H (80-100) fL MCH 37.7 H (26-34) PG MCHC 35.8 (30-36) % RDW 14.3 (11.6-14.8) % Plt Count 174 (150-400) X10^3/uL Neut % (Auto) 78.7 H (50-75) % Lymph % (Auto) 15.8 L (25-40) % [place] % (Auto) 4.7 (3-14) % Eos % (Auto) 0.6 L (2-4) % Baso % (Auto) 0.2 (0-2) % Neut # (Auto) 2100 (5630-1293) /uL Lymph # (Auto) 400 L (0752-7646) /uL [place] # (Auto) 100 (0-900) /uL Eos # (Auto) 0 (0-450) /uL Baso # (Auto) 0 (0-100) /uL PT 11.4 (10.1-12.7) SECONDS INR 1.0 (0.9-1.3) APTT 28 (26-36) SECONDS D-Dimer 929 H (<500) ng/ml Sodium 129 L (137-145) mmol/L Potassium 3.3 L (3.4-5.1) mmol/L Chloride 99 (98-107) mmol/L Carbon Dioxide 19 L (22-32) mmol/L BUN 11 (7-17) mg/dL Creatinine 0.77 (0.52-1.04) mg/dL Estimated GFR > 60 (>60) mL/min BUN/Creatinine Ratio 14.3 (6-22) Glucose 99 (70-100) mg/dL Lactate (0.7-2.1) mmol/L Calcium 8.6 (8.4-10.2) mg/dL Magnesium 1.3 L (1.6-2.3) mg/dL Total Bilirubin 1.0 (0.2-1.3) mg/dL AST 29 (14-36) IU/L ALT 18 (<35) IU/L Alkaline Phosphatase 109 (38-126) U/L Total Creatine Kinase 41 (30-135) U/L CK-MB (CK-2) TNP CK-MB (CK-2) Rel Index TNP Troponin I < 0.012 (0.01-0.034) ng/mL NT-Pro-B Natriuret Pep (<125) pg/mL Total Protein 8.7 H (6.3-8.2) g/dL Albumin 3.6 (3.5-5.0) g/dL Globulin 5.1 H (1.7-4.1) g/dL Albumin/Globulin Ratio 0.7 L (1.0-2.8) Lipase 136 (23-300) U/L Procalcitonin (<0.5) ng/mL SARS-CoV-2 (PCR) (Negative) Influenza A (RT-PCR) (NEGATIVE) Influenza B (RT-PCR) (NEGATIVE) RSV (PCR) (Negative) 02/03/22 02/03/22 02/03/22 Range/Units 15:00 15:00 15:00 WBC (4.5-11.0) X10^3/uL RBC (4.0-5.2) X10^6/uL Hgb (12.0-16.0) g/dL Hct (36-46) % MCV (80-100) fL MCH (26-34) PG MCHC (30-36) % RDW (11.6-14.8) % Plt Count (150-400) X10^3/uL Neut % (Auto) (50-75) % Lymph % (Auto) (25-40) % [place] % (Auto) (3-14) % Eos % (Auto) (2-4) % Baso % (Auto) (0-2) % Neut # (Auto) (1092-6881) /uL Lymph # (Auto) (5072-4850) /uL [place] # (Auto) (0-900) /uL Eos # (Auto) (0-450) /uL Baso # (Auto) (0-100) /uL PT (10.1-12.7) SECONDS INR (0.9-1.3) APTT (26-36) SECONDS D-Dimer (<500) ng/ml Sodium (137-145) mmol/L Potassium (3.4-5.1) mmol/L Chloride (98-107) mmol/L Carbon Dioxide (22-32) mmol/L BUN (7-17) mg/dL Creatinine (0.52-1.04) mg/dL Estimated GFR (>60) mL/min BUN/Creatinine Ratio (6-22) Glucose (70-100) mg/dL Lactate 1.9 (0.7-2.1) mmol/L Calcium (8.4-10.2) mg/dL Magnesium (1.6-2.3) mg/dL Total Bilirubin (0.2-1.3) mg/dL AST (14-36) IU/L ALT (<35) IU/L Alkaline Phosphatase (38-126) U/L Total Creatine Kinase (30-135) U/L CK-MB (CK-2) CK-MB (CK-2) Rel Index Troponin I (0.01-0.034) ng/mL NT-Pro-B Natriuret Pep (<125) pg/mL Total Protein (6.3-8.2) g/dL Albumin (3.5-5.0) g/dL Globulin (1.7-4.1) g/dL Albumin/Globulin Ratio (1.0-2.8) Lipase 153 (23-300) U/L Procalcitonin 0.11 (<0.5) ng/mL SARS-CoV-2 (PCR) Negative (Negative) Influenza A (RT-PCR) Flu a negative (NEGATIVE) Influenza B (RT-PCR) Flu b negative (NEGATIVE) RSV (PCR) Negative (Negative) 02/03/22 02/03/22 Range/Units 15:00 17:26 WBC (4.5-11.0) X10^3/uL RBC (4.0-5.2) X10^6/uL Hgb (12.0-16.0) g/dL Hct (36-46) % MCV (80-100) fL MCH (26-34) PG MCHC (30-36) % RDW (11.6-14.8) % Plt Count (150-400) X10^3/uL Neut % (Auto) (50-75) % Lymph % (Auto) (25-40) % [place] % (Auto) (3-14) % Eos % (Auto) (2-4) % Baso % (Auto) (0-2) % Neut # (Auto) (6829-8879) /uL Lymph # (Auto) (8147-1633) /uL [place] # (Auto) (0-900) /uL Eos # (Auto) (0-450) /uL Baso # (Auto) (0-100) /uL PT (10.1-12.7) SECONDS INR (0.9-1.3) APTT (26-36) SECONDS D-Dimer (<500) ng/ml Sodium (137-145) mmol/L Potassium (3.4-5.1) mmol/L Chloride (98-107) mmol/L Carbon Dioxide (22-32) mmol/L BUN (7-17) mg/dL Creatinine (0.52-1.04) mg/dL Estimated GFR (>60) mL/min BUN/Creatinine Ratio (6-22) Glucose (70-100) mg/dL Lactate (0.7-2.1) mmol/L Calcium (8.4-10.2) mg/dL Magnesium (1.6-2.3) mg/dL Total Bilirubin (0.2-1.3) mg/dL AST (14-36) IU/L ALT (<35) IU/L Alkaline Phosphatase (38-126) U/L Total Creatine Kinase (30-135) U/L CK-MB (CK-2) CK-MB (CK-2) Rel Index Troponin I < 0.012 (0.01-0.034) ng/mL NT-Pro-B Natriuret Pep 419 H (<125) pg/mL Total Protein (6.3-8.2) g/dL Albumin (3.5-5.0) g/dL Globulin (1.7-4.1) g/dL Albumin/Globulin Ratio (1.0-2.8) Lipase (23-300) U/L Procalcitonin (<0.5) ng/mL SARS-CoV-2 (PCR) (Negative) Influenza A (RT-PCR) (NEGATIVE) Influenza B (RT-PCR) (NEGATIVE) RSV (PCR) (Negative) Point of Care Testing Test Results Not applicable Urine Dip Bedside Urine Glucose Negative Bedside Urine Bilirubin - Negative Bedside Urine Ketone - Negative Urine Specific [place] 1.005 Bedside Urine Occult Blood - Negative Bedside Urine pH 6.0 Bedside Urine Protein - Negative Bedside Urine Urobilinogen - Negative Bedside Urine Nitrite - Negative Bedside Urine Leukocytes - Negative Esterase Imaging Data Chest x-ray: Radiologist's Impression: [address] [address] XRay Report Signed Patient: Omaira Corado MR#: [id number] : 1970 Acct:[id number] Age/Sex: 51 / F Date of Service: 02/03/22 Loc: ED Accession Number: [id number] ?? Procedure: XR chest 1V Ordering Provider: Opal Vergara D.O. PROCEDURE:? XR CHEST 1V ? INDICATIONS:? chest pain ? TECHNIQUE:? One view of the chest was acquired.? ? COMPARISON:? [facility], CR, XR CHEST 1V, 02/06/2021, 9:22. ? FINDINGS:? ? Surgical changes and devices:? None.? ? Lungs and pleura:? Diffuse interstitial prominence.? No focal consolidation.? Likely small bilateral pleural effusions.? Small amount of fluid layering along the right minor fissure.? No pneumothorax. ? Mediastinum:? Mediastinal contours appear stable.? Heart size is enlarged.? ? Bones and chest wall:? No suspicious bony lesions.? Overlying soft tissues appear unremarkable.? ? IMPRESSION:? Cardiomegaly with findings suggestive of possible early CHF/pulmonary edema. ?Concurrent infectious or inflammatory process not excluded if clinically appropriate.? ? ? Dictated by: Cornell Rome M.D. on 02/03/2022 at 15:37 ? ? Approved by: Cornell Rome M.D. on 02/03/2022 at 15:38 ? CT scan - chest: Radiologist's Impression: [place] [address] CT Scan Report Signed Patient: Omaira Corado MR#: [id number] : 1970 Acct:[id number] Age/Sex: 51 / F Date of Service: 02/03/22 Loc: ED Accession Number: [id number] ?? Procedure: CT angio chest PE protocol Ordering Provider: Vlad Devine P.A-C PROCEDURE:? CT ANGIO CHEST PE PROTOCOL ? INDICATIONS:? Acute SOB, hx of PE ? TECHNIQUE:? After the administration of intravenous contrast, 2 mm thick sections acquired from the pulmonary apices to the posterior costophrenic angles.? 3-dimensional maximum intensity projection (MIP) coronal and sagittal reformats were then acquired through the thorax.? For radiation dose reduction, the following was used:? automated exposure control, adjustment of mA and/or kV according to patient size.? ? COMPARISON:? [facility], CT, CT ANGIO CHEST PE, 09/11/2021, 19:10. ?Findings: ? Image quality:? Excellent.? ? Pulmonary arteries:? No acute pulmonary emboli identified to the level of the mid segmental pulmonary arteries.? There is persistent enlargement of the main pulmonary artery measuring up to 3.9 cm in diameter.? No evidence for acute right-sided? heart strain. ? Lungs and pleura:? Diffuse ground-glass opacities identified in a somewhat mosaic pattern and slightly demonstrating a lower lobe predominance.? A few scattered nodular ground-glass opacities are also present, similar to prior study.? Mild smooth septal thickening with small right pleural effusion.? Peripheral pleural-based right basilar consolidation (image 229/series 5) favored to represent atelectasis.? No pneumothorax.? Central and peripheral airways are patent.? ? ? Mediastinum:? Heart size is normal, with a small pericardial effusion.? Multiple prominent mediastinal and hilar lymph nodes which are more notable for number rather than size are favored to represent reactive adenopathy. ? Thoracic aorta is normal in caliber and enhancement.? Esophagus is normal in caliber, without hiatal hernia.? ? ? Bones and chest wall:? No suspicious bony lesions.? Ribs and thoracic spine appear intact throughout.? Thyroid gland is unremarkable.? No axillary or supraclavicular adenopathy. ? ? ? Abdomen:? Visualized upper abdominal solid organs appear normal in the early arterial phase of enhancement.? ? ? IMPRESSION:? ? 1. No acute pulmonary emboli.? No acute right-sided heart strain. ? 2. Scattered patchy areas of ground-glass opacities in a somewhat mosaic pattern as well as scattered nodular ground-glass opacities.? Findings are similar to previous evaluation and may represent an infectious or inflammatory process .? Pulmonary edema may have a similar appearance.? There are multiple mediastinal lymph nodes more notable for number rather than size which are likely reactive in etiology. ? 3. Persistent enlargement of main pulmonary artery which may represent sequela of chronic pulmonary arterial hypertension.? ? ? Dictated by: Cornell Rome M.D. on 02/03/2022 at 16:35 ? ? Approved by: Cornell Rome M.D. on 02/03/2022 at 16:53 ? ECG Data Interpretation: EKG is normal sinus rhythm rate 93 and free of any signs of ischemia or ectopy. No ST segmental elevation or depression. No T wave inversions MDM Narrative Medical decision making narrative: This is a 51-year-old female presents emergency department with a history of pulmonary hypertension, CHF, COPD missing to the emergency department due to acute onset right side chest pain. Troponin x2 and EKG negative. Chest x-ray significant for possible early developing pulmonary edema/CHF. D-dimer elevated and CT PE ordered. CT PE negative for pulmonary edema but did show Scattered patchy areas of ground-glass opacities. Patient is allergic to Zosyn but given Levaquin for antibiotic coverage. COVID, flu, RSV negative. Patient states that she is baseline 86-89% O2 although somewhat of an unreliable historian. Patient was placed on supplemental oxygen via nasal cannula. Currently satting at 93% with 5 L via nasal cannula. Patient was seen by [facility] pulmonology last year after initially being seen here in the emergency department and being transferred. Patient is a established patient of Dr. Quick. Spoke with a Dr. Lubin, warehouse order picker, at [facility], regarding the patient who recommended diuresis, 40mg Lasix given, continuation of the patient's pulmonary hypertension medications. Recommended admission to our hospital due to bedding availablity at [facility]. Lab work significant for mild hypomagnesemia, hypokalemia, and hyponatremia. Oral supplementation given. Spoke with Dr. Dash, hospitalist, who recommended ABG on room air and kindly accepted the patient for admission. <Opal Vergara, - Last Filed: 02/03/22 19:31> Lab Data Labs: Lab Results 02/03/22 02/03/22 02/03/22 Range/Units 15:00 15:00 15:00 WBC 2.7 L (4.5-11.0) X10^3/uL RBC 2.80 L (4.0-5.2) X10^6/uL Hgb 10.6 L (12.0-16.0) g/dL Hct 29.5 L (36-46) % MCV 105.5 H (80-100) fL MCH 37.7 H (26-34) PG MCHC 35.8 (30-36) % RDW 14.3 (11.6-14.8) % Plt Count 174 (150-400) X10^3/uL Neut % (Auto) 78.7 H (50-75) % Lymph % (Auto) 15.8 L (25-40) % [place] % (Auto) 4.7 (3-14) % Eos % (Auto) 0.6 L (2-4) % Baso % (Auto) 0.2 (0-2) % Neut # (Auto) 2100 (1341-3075) /uL Lymph # (Auto) 400 L (8877-2589) /uL [place] # (Auto) 100 (0-900) /uL Eos # (Auto) 0 (0-450) /uL Baso # (Auto) 0 (0-100) /uL PT 11.4 (10.1-12.7) SECONDS INR 1.0 (0.9-1.3) APTT 28 (26-36) SECONDS D-Dimer 929 H (<500) ng/ml Sodium 129 L (137-145) mmol/L Potassium 3.3 L (3.4-5.1) mmol/L Chloride 99 (98-107) mmol/L Carbon Dioxide 19 L (22-32) mmol/L BUN 11 (7-17) mg/dL Creatinine 0.77 (0.52-1.04) mg/dL Estimated GFR > 60 (>60) mL/min BUN/Creatinine Ratio 14.3 (6-22) Glucose 99 (70-100) mg/dL Lactate (0.7-2.1) mmol/L Calcium 8.6 (8.4-10.2) mg/dL Magnesium 1.3 L (1.6-2.3) mg/dL Total Bilirubin 1.0 (0.2-1.3) mg/dL AST 29 (14-36) IU/L ALT 18 (<35) IU/L Alkaline Phosphatase 109 (38-126) U/L Total Creatine Kinase 41 (30-135) U/L CK-MB (CK-2) TNP CK-MB (CK-2) Rel Index TNP Troponin I < 0.012 (0.01-0.034) ng/mL NT-Pro-B Natriuret Pep (<125) pg/mL Total Protein 8.7 H (6.3-8.2) g/dL Albumin 3.6 (3.5-5.0) g/dL Globulin 5.1 H (1.7-4.1) g/dL Albumin/Globulin Ratio 0.7 L (1.0-2.8) Lipase 136 (23-300) U/L Procalcitonin (<0.5) ng/mL SARS-CoV-2 (PCR) (Negative) Influenza A (RT-PCR) (NEGATIVE) Influenza B (RT-PCR) (NEGATIVE) RSV (PCR) (Negative) 02/03/22 02/03/22 02/03/22 Range/Units 15:00 15:00 15:00 WBC (4.5-11.0) X10^3/uL RBC (4.0-5.2) X10^6/uL Hgb (12.0-16.0) g/dL Hct (36-46) % MCV (80-100) fL MCH (26-34) PG MCHC (30-36) % RDW (11.6-14.8) % Plt Count (150-400) X10^3/uL Neut % (Auto) (50-75) % Lymph % (Auto) (25-40) % [place] % (Auto) (3-14) % Eos % (Auto) (2-4) % Baso % (Auto) (0-2) % Neut # (Auto) (8760-7540) /uL Lymph # (Auto) (4750-5915) /uL [place] # (Auto) (0-900) /uL Eos # (Auto) (0-450) /uL Baso # (Auto) (0-100) /uL PT (10.1-12.7) SECONDS INR (0.9-1.3) APTT (26-36) SECONDS D-Dimer (<500) ng/ml Sodium (137-145) mmol/L Potassium (3.4-5.1) mmol/L Chloride (98-107) mmol/L Carbon Dioxide (22-32) mmol/L BUN (7-17) mg/dL Creatinine (0.52-1.04) mg/dL Estimated GFR (>60) mL/min BUN/Creatinine Ratio (6-22) Glucose (70-100) mg/dL Lactate 1.9 (0.7-2.1) mmol/L Calcium (8.4-10.2) mg/dL Magnesium (1.6-2.3) mg/dL Total Bilirubin (0.2-1.3) mg/dL AST (14-36) IU/L ALT (<35) IU/L Alkaline Phosphatase (38-126) U/L Total Creatine Kinase (30-135) U/L CK-MB (CK-2) CK-MB (CK-2) Rel Index Troponin I (0.01-0.034) ng/mL NT-Pro-B Natriuret Pep (<125) pg/mL Total Protein (6.3-8.2) g/dL Albumin (3.5-5.0) g/dL Globulin (1.7-4.1) g/dL Albumin/Globulin Ratio (1.0-2.8) Lipase 153 (23-300) U/L Procalcitonin 0.11 (<0.5) ng/mL SARS-CoV-2 (PCR) Negative (Negative) Influenza A (RT-PCR) Flu a negative (NEGATIVE) Influenza B (RT-PCR) Flu b negative (NEGATIVE) RSV (PCR) Negative (Negative) 02/03/22 02/03/22 Range/Units 15:00 17:26 WBC (4.5-11.0) X10^3/uL RBC (4.0-5.2) X10^6/uL Hgb (12.0-16.0) g/dL Hct (36-46) % MCV (80-100) fL MCH (26-34) PG MCHC (30-36) % RDW (11.6-14.8) % Plt Count (150-400) X10^3/uL Neut % (Auto) (50-75) % Lymph % (Auto) (25-40) % [place] % (Auto) (3-14) % Eos % (Auto) (2-4) % Baso % (Auto) (0-2) % Neut # (Auto) (0276-5415) /uL Lymph # (Auto) (9806-9125) /uL [place] # (Auto) (0-900) /uL Eos # (Auto) (0-450) /uL Baso # (Auto) (0-100) /uL PT (10.1-12.7) SECONDS INR (0.9-1.3) APTT (26-36) SECONDS D-Dimer (<500) ng/ml Sodium (137-145) mmol/L Potassium (3.4-5.1) mmol/L Chloride (98-107) mmol/L Carbon Dioxide (22-32) mmol/L BUN (7-17) mg/dL Creatinine (0.52-1.04) mg/dL Estimated GFR (>60) mL/min BUN/Creatinine Ratio (6-22) Glucose (70-100) mg/dL Lactate (0.7-2.1) mmol/L Calcium (8.4-10.2) mg/dL Magnesium (1.6-2.3) mg/dL Total Bilirubin (0.2-1.3) mg/dL AST (14-36) IU/L ALT (<35) IU/L Alkaline Phosphatase (38-126) U/L Total Creatine Kinase (30-135) U/L CK-MB (CK-2) CK-MB (CK-2) Rel Index Troponin I < 0.012 (0.01-0.034) ng/mL NT-Pro-B Natriuret Pep 419 H (<125) pg/mL Total Protein (6.3-8.2) g/dL Albumin (3.5-5.0) g/dL Globulin (1.7-4.1) g/dL Albumin/Globulin Ratio (1.0-2.8) Lipase (23-300) U/L Procalcitonin (<0.5) ng/mL SARS-CoV-2 (PCR) (Negative) Influenza A (RT-PCR) (NEGATIVE) Influenza B (RT-PCR) (NEGATIVE) RSV (PCR) (Negative) Point of Care Testing Test Results Not applicable Urine Dip Bedside Urine Glucose Negative Bedside Urine Bilirubin - Negative Bedside Urine Ketone - Negative Urine Specific [place] 1.005 Bedside Urine Occult Blood - Negative Bedside Urine pH 6.0 Bedside Urine Protein - Negative Bedside Urine Urobilinogen - Negative Bedside Urine Nitrite - Negative Bedside Urine Leukocytes - Negative Esterase ECG Data Attestation: I personally reviewed and interpreted this ECG as follows: Interpretation: Mank: EKG is normal sinus rhythm rate 93 and free of any signs of ischemia or ectopy. No ST segmental elevation or depression. No T wave inversions. MDM Narrative Medical decision making narrative: This is a 51-year-old female presents emergency department with a history of pulmonary hypertension, CHF, COPD missing to the emergency department due to acute onset right side chest pain. Troponin x2 and EKG negative. Chest x-ray significant for possible early developing pulmonary edema/CHF. D-dimer elevated and CT PE ordered. CT PE negative for pulmonary edema but did show Scattered patchy areas of ground-glass opacities. Patient is allergic to Zosyn but given Levaquin for antibiotic coverage. COVID, flu, RSV negative. Patient states that she is baseline 86-89% O2 although somewhat of an unreliable historian. Patient was placed on supplemental oxygen via nasal cannula. Currently satting at 93% with 5 L via nasal cannula. Patient was seen by [facility] pulmonology last year after initially being seen here in the emergency department and being transferred. Patient is a established patient of Dr. Quick. Spoke with a Dr. Lubin, warehouse order picker, at [facility], regarding the patient who recommended diuresis, 40mg Lasix given, continuation of the patient's pulmonary hypertension medications. Recommended admission to our hospital due to bedding availablity at [facility]. Lab work significant for mild hypomagnesemia, hypokalemia, and hyponatremia. Oral supplementation given. Spoke with Dr. Dash, hospitalist, who recommended ABG on room air and kindly accepted the patient for admission. Patient also seen independently evaluated by myself at bedside. Patient receiving breathing treatment, EKG shows sinus tachycardia, rate of 108 AL 136 QRS 88 QTC 423. Patient was concerned about PE just by bili so she would stopped her anticoagulation, she is a history of CHF, pulmonary hypertension follows with pulmonology at [facility] s is on medication/endothelial receptor antagonist which he has been on for about 2 years is now at her titrated regular dose. Patient has felt ill for the past week was told she had some pneumonia was given cefdinir as an outpatient by the urgent care. She states she is just been not really improving she started feeling worse today and was evaluated here in the department. She states her baseline used to be 86-89 % but since starting her new medication is now typically 90-93%. Patient case was discussed with pulmonology suspect that she is having some worsening CHF but does have some possible pneumonia type changes., she does not have a pulmonary emboli does not appear to have any ACS or acute cardiac events occurring, they recommend admission they do not have any beds available to the weekend ask our hospitalist can admit. TABLE MAKER spoke with Dr. Her owen who accepts for admission. Discharge Plan Departure Patient Disposition: Admitted As Inpatient Clinical Impression: Acute dyspnea, Pulmonary hypertension, Congestive heart failure Admit Date/Time: 02/03/22 18:57 Admit Provider: Siddhartha Dash
[2022-02-03 15:21] LABS: Add Manual Diff / Slide Review NO; Basophils Absolute Auto 0 /uL (0-100); Basophils Percent Auto 0.2 % (0-2); Eosinophils Absolute Auto 0 /uL (0-450); Eosinophils Percent Auto 0.6 % (2-4); Hematocrit 29.5 % (36-46); Hemoglobin 10.6 g/dL (12.0-16.0); Lymphocytes Absolute Auto 400 /uL (1100-4500); Lymphocytes Percent Auto 15.8 % (25-40); Mean Corpuscular HGB Conc 35.8 % (30-36); Mean Corpuscular Hemoglobin 37.7 PG (26-34); Mean Corpuscular Volume 105.5 fL (80-100); Monocytes Absolute Auto 100 /uL (0-900); Monocytes Percent Auto 4.7 % (3-14); Neutrophils Absolute Auto 2100 /uL (1500-7000); Neutrophils Percent Auto 78.7 % (50-75); Platelet Count 174 X10^3/uL (150-400); Red Cell Distribution Width 14.3 % (11.6-14.8); White Blood Cell Count 2.7 X10^3/uL (4.5-11.0)
[2022-02-03 15:25] LABS: Prothrombin Time 11.4 SECONDS (10.1-12.7)
[2022-02-03 15:26] LABS: D Dimer 929 ng/ml (<500)
[2022-02-03 15:27] LABS: PTT Partial Thromboplastin Tim 28 SECONDS (26-36)
[2022-02-03 15:32] LABS: Lactate (Lactic Acid) 1.9 mmol/L (0.7-2.1)
[2022-02-03 15:33] LABS: Alanine Aminotransferase 18 IU/L (<35); Albumin 3.6 g/dL (3.5-5.0); Albumin Globulin Ratio 0.7 (1.0-2.8); Alkaline Phosphatase 109 U/L (38-126); Aspartate Aminotransferase 29 IU/L (14-36); BUN Creatinine Ratio 14.3 (6-22); Blood Urea Nitrogen 11 mg/dL (7-17); Calcium 8.6 mg/dL (8.4-10.2); Carbon Dioxide 19 mmol/L (22-32); Chloride 99 mmol/L (98-107); Creatine Kinase 41 U/L (30-135); Estimated Glomerular Filt Rate > 60 mL/min (>60); Globulin 5.1 g/dL (1.7-4.1); Glucose 99 mg/dL (70-100); HEMOLYSIS < 15 (0-50); Lipase 136 U/L (23-300); Magnesium 1.3 mg/dL (1.6-2.3); Potassium 3.3 mmol/L (3.4-5.1); Sodium 129 mmol/L (137-145); Total Protein 8.7 g/dL (6.3-8.2)
--- NOTE | 2022-02-03 15:40 | DI.CT.S_ITS ---
PROCEDURE: CT ANGIO CHEST PE PROTOCOL INDICATIONS: Acute SOB, hx of PE TECHNIQUE: After the administration of intravenous contrast, 2 mm thick sections acquired from the pulmonary apices to the posterior costophrenic angles. 3-dimensional maximum intensity projection (MIP) coronal and sagittal reformats were then acquired through the thorax. For radiation dose reduction, the following was used: automated exposure control, adjustment of mA and/or kV according to patient size. COMPARISON: [facility], CT, CT ANGIO CHEST PE, 09/11/2021, 19:10. Findings: Image quality: Excellent. Pulmonary arteries: No acute pulmonary emboli identified to the level of the mid segmental pulmonary arteries. There is persistent enlargement of the main pulmonary artery measuring up to 3.9 cm in diameter. No evidence for acute right-sided heart strain. Lungs and pleura: Diffuse ground-glass opacities identified in a somewhat mosaic pattern and slightly demonstrating a lower lobe predominance. A few scattered nodular ground-glass opacities are also present, similar to prior study. Mild smooth septal thickening with small right pleural effusion. Peripheral pleural-based right basilar consolidation (image 229/series 5) favored to represent atelectasis. No pneumothorax. Central and peripheral airways are patent. Mediastinum: Heart size is normal, with a small pericardial effusion. Multiple prominent mediastinal and hilar lymph nodes which are more notable for number rather than size are favored to represent reactive adenopathy. Thoracic aorta is normal in caliber and enhancement. Esophagus is normal in caliber, without hiatal hernia. Bones and chest wall: No suspicious bony lesions. Ribs and thoracic spine appear intact throughout. Thyroid gland is unremarkable. No axillary or supraclavicular adenopathy. Abdomen: Visualized upper abdominal solid organs appear normal in the early arterial phase of enhancement. IMPRESSION: 1. No acute pulmonary emboli. No acute right-sided heart strain. 2. Scattered patchy areas of ground-glass opacities in a somewhat mosaic pattern as well as scattered nodular ground-glass opacities. Findings are similar to previous evaluation and may represent an infectious or inflammatory process . Pulmonary edema may have a similar appearance. There are multiple mediastinal lymph nodes more notable for number rather than size which are likely reactive in etiology. 3. Persistent enlargement of main pulmonary artery which may represent sequela of chronic pulmonary arterial hypertension. Dictated by: Cornell Rome M.D. on 02/03/2022 at 16:35 Approved by: Cornell Rome M.D. on 02/03/2022 at 16:53
[2022-02-03 15:44] LABS: Troponin I < 0.012 ng/mL (0.01-0.034)
[2022-02-03] MEDS: POTASSIUM CHLORIDE 20 MEQ/15 ML UDC PO (16:10)
[2022-02-03] MEDS: MAGNESIUM CHLORIDE 64 MG TABLET 128 MG PO (16:10)
[2022-02-03] MEDS: SODIUM CHLORIDE 0.9% 1,000 ML 1000 ML IV (16:11)
[2022-02-03 16:16] LABS: Influenza A - CEPHEID Flu A NEGATIVE (NEGATIVE); Influenza B - CEPHEID Flu B NEGATIVE (NEGATIVE); Respiratory Syncytial Virus Negative (Negative)
[2022-02-03 16:17] LABS: COVID-19 CEPHEID 4-PLEX PCR Negative (Negative)
[2022-02-03 16:32] LABS: NT-proBNP (BNP-Adult 18+) 419 pg/mL (<125)
[2022-02-03 16:48] LABS: Lipase 153 U/L (23-300)
[2022-02-03 17:06] LABS: Procalcitonin 0.11 ng/mL (<0.5)
[2022-02-03] MEDS: ALBUTEROL/IPRATROPIUM 3 ML AMPUL INH ×2 (17:31→23:02)
--- NOTE | 2022-02-03 17:41 | RT ---
pt gomez neb tx well, on 6 lpm oximask. mild sob noted
[2022-02-03 18:03] LABS: Troponin I < 0.012 ng/mL (0.01-0.034)
[2022-02-03] MEDS: levoFLOXacin 750 MG/150 ML PIGGYBACK 100 MG IV (18:51)
[2022-02-03 19:29] LABS: PCO2 ABG 24.7 mmHg (35-45); pH ABG 7.49 (7.35-7.45)
[2022-02-03 19:31] LABS: HCO3 ABG 19 mmol/L (22-26); PO2 ABG 47 mmHg (80-100)
[2022-02-03 19:32] LABS: Oxygen Saturation ABG 87 % (95-100); TCO2 ABG 19 mmol/L (21-31)
[2022-02-03 19:33] LABS: Fractionated Inspired Oxygen 21
[2022-02-03] MEDS: TRAZODONE 50 MG TABLET PO (20:14)
[2022-02-03] MEDS: methylPREDNISolone 125 MG/2 ML VIAL 60 MG IV (20:35)
--- NOTE | 2022-02-03 21:09 | PM.HP.1 ---
History of Present Illness History of Present Illness Date Patient Seen: 02/03/22 Chief complaint: Thinks blood clot Narrative: History obtained from ER note, patient and her daughter: 51-year-old female presents emergency department due to right-sided chest pain onset approximately 10 hours ago at 5:00 a.m. this morning.? Patient states that she was seen a week ago by [facility] walk-in clinic and treated for suspected pneumonia with oral antibiotics, patient is unsure of exact antibiotic but states Cefdinir.? Also given oral steroids as well as a DuoNeb which she has been using.? Patient reports that the pain is worse with deep breathing.? Denies any left-sided chest pain, left arm pain, nausea, vomiting, fevers, or any other concerning signs or symptoms.? Patient has a history of COPD, uses CPAP machine at night.? States that her baseline O2 is at 86-89%.? Patient reports a similar episode happening 12 months ago where she was eventually transferred to pulmonology due to a PE.? Patient was unable to state cause of PE.? Was placed on eliquis on discharge and stopped taking 2 months ago due to spontaneous bleeding in her abdomen. History of CHF, and pulmonary hypertension.? Reports being tested negative for influenza and COVID.? Fur Clipper is a Dr. Quick at [facility]. When I saw the patient in the ER she still requiring 5 L of nasal cannula to be comfortable and still seems to be in respiratory distress. Having intermittent cough but able to provide the details regarding her illness. She started using additional doses of Lasix to help with the swelling. She said that typically she will be transferred to for further care, I discussed regarding care that we can provide here and both daughter and patient agreed to stay at [facility] for further care. Patient History Medical History Congestive heart failure Morbid obesity Pulmonary hypertension Sleep apnea Family & Social History Social History: Patient has son and daughter. She stopped smoking in November. No significant history of cardiac disease or lung disease in the family. Safety & Behavioral: Feels Safe in Current Yes Environment Been Physically Hurt or No Threatened By a Person Tobacco & Substance use: Smoking Status Current every day smoker alcohol intake frequency a few times a week Substance Use Type does not use Meds Home Medications and Allergies Home Medications Medication Instructions Recorded Confirmed Type albuterol sulfate 90 mcg/actuation 90 mcg inhalation BID 02/06/21 02/06/21 History aerosol inhaler ambrisentan 10 mg tablet 10 mg PO DAILY 02/06/21 02/06/21 History budesonide-formoterol HFA 160 1 puff inhalation BID 02/06/21 02/06/21 History mcg-4.5 mcg/actuation aerosol inhaler (Symbicort) bupropion HCl 150 mg 24 hr tablet, 150 mg PO DAILY 02/06/21 02/06/21 History extended release fluoxetine 60 mg tablet 60 mg PO DAILY 02/06/21 02/06/21 History furosemide 40 mg tablet 40 mg PO DAILY 02/06/21 02/06/21 History levothyroxine 125 mcg tablet 125 mcg PO BID 02/06/21 02/06/21 History potassium chloride 10 mEq 10 meq PO DAILY 02/06/21 02/06/21 History tablet,extended release selexipag 800 mcg tablet (Uptravi) 800 mcg PO DAILY pulmonary 02/06/21 02/06/21 History hypertension spironolactone 50 mg tablet 50 mg PO DAILY 02/06/21 02/06/21 History tadalafil (pulm. hypertension) 20 20 mg PO DAILY 02/06/21 02/06/21 History mg tablet (pulmonary hypertension) Allergies Allergy/AdvReac Type Severity Reaction Status Date / Time Penicillins AdvReac Verified 02/06/21 09:27 Review of Systems Review of Systems Narrative: All other systems reviewed other than as mentioned above in HPI, negative. Exam Vital Signs (past 8 hours): - 02/03/22 14:49 02/03/22 15:05 02/03/22 15:44 Temperature 97.4 F L Pulse Rate 95 H 96 H 96 H Respiratory Rate 22 18 24 Blood Pressure 100/61 106/59 L 135/71 Pulse Oximetry 91 87 L 91 Oxygen Delivery Method Room Air Room Air Nasal Cannula Oxygen Flow Rate 4 02/03/22 15:43 02/03/22 15:57 02/03/22 16:00 Temperature Pulse Rate 96 H 94 H Respiratory Rate 34 H 17 Blood Pressure 135/71 Pulse Oximetry 91 91 Oxygen Delivery Method Nasal Cannula Oxygen Flow Rate 4 02/03/22 16:25 02/03/22 16:26 02/03/22 16:25 Temperature Pulse Rate 90 Respiratory Rate 24 Blood Pressure Pulse Oximetry 89 L 92 91 Oxygen Delivery Method Nasal Cannula Nasal Cannula Nasal Cannula Oxygen Flow Rate 4 5 5 02/03/22 16:25 02/03/22 16:30 02/03/22 16:30 Temperature Pulse Rate 90 Respiratory Rate Blood Pressure 115/68 112/58 L Pulse Oximetry 91 Oxygen Delivery Method Nasal Cannula Oxygen Flow Rate 5 02/03/22 17:00 02/03/22 17:06 02/03/22 17:06 Temperature Pulse Rate 106 H 93 H Respiratory Rate Blood Pressure 149/72 H Pulse Oximetry 91 Oxygen Delivery Method Nasal Cannula Oxygen Flow Rate 5 02/03/22 17:31 02/03/22 17:30 02/03/22 17:30 Temperature Pulse Rate 96 H 89 Respiratory Rate 24 Blood Pressure 123/75 Pulse Oximetry 90 L 90 L Oxygen Delivery Method Oximask Oxygen Flow Rate 6 5 02/03/22 18:00 02/03/22 18:00 02/03/22 18:30 Temperature Pulse Rate 93 H Respiratory Rate Blood Pressure 120/73 118/73 Pulse Oximetry 90 L Oxygen Delivery Method Oximask Oxygen Flow Rate 5 02/03/22 18:30 02/03/22 19:00 02/03/22 19:00 Temperature Pulse Rate 92 H 91 H Respiratory Rate Blood Pressure 115/66 Pulse Oximetry 88 L 90 L Oxygen Delivery Method Oximask Oximask Oxygen Flow Rate 5 5 02/03/22 19:30 02/03/22 20:00 Temperature Pulse Rate 111 H 96 H Respiratory Rate Blood Pressure Pulse Oximetry 90 L 91 Oxygen Delivery Method Nasal Cannula Nasal Cannula Oxygen Flow Rate 6 6 Oxygen Delivery Method Nasal Cannula Oxygen Flow Rate 6 Narrative Exam Narrative: Patient does seem to be in mild distress using accessory muscles with the exertion. Significant diffuse wheezes in both lung ellis left greater than right noticed, crackles also noted. Trace pedal edema. Obese. Does seem to be in distress. Constitutional, HEENT, neck, chest, respiratory, cardiovascular, GI, musculoskeletal, skin, neuro, psych, extremity examination done, negative other than as mentioned above. Objective Labs Result Diagrams: 02/03/22 15:00 02/03/22 15:00 Labs: Laboratory Results - last 24 hr 02/03/22 02/03/22 02/03/22 15:00 15:00 15:00 WBC 2.7 L RBC 2.80 L Hgb 10.6 L Hct 29.5 L MCV 105.5 H MCH 37.7 H MCHC 35.8 RDW 14.3 Plt Count 174 Neut % (Auto) 78.7 H Lymph % (Auto) 15.8 L [place] % (Auto) 4.7 Eos % (Auto) 0.6 L Baso % (Auto) 0.2 Neut # (Auto) 2100 Lymph # (Auto) 400 L [place] # (Auto) 100 Eos # (Auto) 0 Baso # (Auto) 0 PT 11.4 INR 1.0 APTT 28 D-Dimer 929 H ABG pH ABG pCO2 ABG pO2 ABG HCO3 ABG Total CO2 ABG O2 Saturation ABG Base Excess FiO2 Sodium 129 L Potassium 3.3 L Chloride 99 Carbon Dioxide 19 L BUN 11 Creatinine 0.77 Estimated GFR > 60 BUN/Creatinine Ratio 14.3 Glucose 99 Lactate Calcium 8.6 Magnesium 1.3 L Total Bilirubin 1.0 AST 29 ALT 18 Alkaline Phosphatase 109 Total Creatine Kinase 41 CK-MB (CK-2) TNP CK-MB (CK-2) Rel Index TNP Troponin I < 0.012 NT-Pro-B Natriuret Pep Total Protein 8.7 H Albumin 3.6 Globulin 5.1 H Albumin/Globulin Ratio 0.7 L Lipase 136 Procalcitonin SARS-CoV-2 (PCR) Influenza A (RT-PCR) Influenza B (RT-PCR) RSV (PCR) 02/03/22 02/03/22 02/03/22 15:00 15:00 15:00 WBC RBC Hgb Hct MCV MCH MCHC RDW Plt Count Neut % (Auto) Lymph % (Auto) [place] % (Auto) Eos % (Auto) Baso % (Auto) Neut # (Auto) Lymph # (Auto) [place] # (Auto) Eos # (Auto) Baso # (Auto) PT INR APTT D-Dimer ABG pH ABG pCO2 ABG pO2 ABG HCO3 ABG Total CO2 ABG O2 Saturation ABG Base Excess FiO2 Sodium Potassium Chloride Carbon Dioxide BUN Creatinine Estimated GFR BUN/Creatinine Ratio Glucose Lactate 1.9 Calcium Magnesium Total Bilirubin AST ALT Alkaline Phosphatase Total Creatine Kinase CK-MB (CK-2) CK-MB (CK-2) Rel Index Troponin I NT-Pro-B Natriuret Pep Total Protein Albumin Globulin Albumin/Globulin Ratio Lipase 153 Procalcitonin 0.11 SARS-CoV-2 (PCR) Negative Influenza A (RT-PCR) Flu a negative Influenza B (RT-PCR) Flu b negative RSV (PCR) Negative 02/03/22 02/03/22 02/03/22 15:00 17:26 19:13 WBC RBC Hgb Hct MCV MCH MCHC RDW Plt Count Neut % (Auto) Lymph % (Auto) [place] % (Auto) Eos % (Auto) Baso % (Auto) Neut # (Auto) Lymph # (Auto) [place] # (Auto) Eos # (Auto) Baso # (Auto) PT INR APTT D-Dimer ABG pH 7.49 H ABG pCO2 24.7 L* ABG pO2 47 L* ABG HCO3 19 L ABG Total CO2 19 L ABG O2 Saturation 87 L ABG Base Excess -5.0 L FiO2 21 Sodium Potassium Chloride Carbon Dioxide BUN Creatinine Estimated GFR BUN/Creatinine Ratio Glucose Lactate Calcium Magnesium Total Bilirubin AST ALT Alkaline Phosphatase Total Creatine Kinase CK-MB (CK-2) CK-MB (CK-2) Rel Index Troponin I < 0.012 NT-Pro-B Natriuret Pep 419 H Total Protein Albumin Globulin Albumin/Globulin Ratio Lipase Procalcitonin SARS-CoV-2 (PCR) Influenza A (RT-PCR) Influenza B (RT-PCR) RSV (PCR) Assessment & Plan Assessment and plan (1) Morbid obesity: Status: Acute (2) Congestive heart failure: Status: Acute (3) Pulmonary hypertension: Problem details: Followed at the [facility] Status: Acute (4) Acute and chronic respiratory failure with hypoxia: Status: Acute Assessment & Plan narrative: Acute on chronic hypoxic respiratory failure most likely secondary to combination of COPD and failed outpatient treatment for pneumonia -might have some component of CHF contributing to further distress. Continue nebulizer therapy, IV steroids, pneumonia treatment, continuous pulse ox, telemetry, antibiotics. As of now patient is on observation status, hopefully transition to p.o. medications in the morning. CT scan is negative. Transition to p.o. medications in the morning, DC planning based on the clinical picture. Overnight CPAP as per the home settings along with oxygenation to maintain between 89-92 %. History of heart failure, chronic, systolic on diuretics, continue IV Lasix during this hospitalization Chronic hypoxic respiratory failure with history of chronic pulmonary hypertension -high-risk, continue O2 therapy Obesity hypoventilatory syndrome? And obstructive sleep apnea -continue CPAP therapy DVT and GI prophylaxis reviewed. PPI for GI prophylaxis, SCDs for DVT prophylaxis. Patient is full code. Overall prognosis is guarded. Care plan extensively discussed with the patient and daughter at bedside, answered all questions. Time Spent With Patient Critical Care time: I spent a total of [] minutes of critical care time on this patient's care today; this time is exclusive of procedural time.
[2022-02-04] VITALS (14 sets, daily range): PULSE 85–100; RESP 24; O2SAT 90–95
[2022-02-04] MEDS: methylPREDNISolone 125 MG/2 ML VIAL 60 MG IV (04:42)
[2022-02-04 05:52] LABS: Basophils Absolute Auto 0 /uL (0-100); Basophils Percent Auto 0.2 % (0-2); Eosinophils Absolute Auto 0 /uL (0-450); Hematocrit 25.6 % (36-46); Hemoglobin 9.1 g/dL (12.0-16.0); Lymphocytes Absolute Auto 600 /uL (1100-4500); Lymphocytes Percent Auto 32.6 % (25-40); Mean Corpuscular HGB Conc 35.6 % (30-36); Mean Corpuscular Hemoglobin 37.6 PG (26-34); Mean Corpuscular Volume 105.8 fL (80-100); Monocytes Absolute Auto 200 /uL (0-900); Monocytes Percent Auto 11.3 % (3-14); Neutrophils Absolute Auto 1000 /uL (1500-7000); Neutrophils Percent Auto 55.9 % (50-75); Platelet Count 159 X10^3/uL (150-400); Red Blood Cell Count 2.42 X10^6/uL (4.0-5.2); Red Cell Distribution Width 14.3 % (11.6-14.8)
[2022-02-04 05:56] LABS: BUN Creatinine Ratio 13.4 (6-22); Blood Urea Nitrogen 9 mg/dL (7-17); Calcium 8.1 mg/dL (8.4-10.2); Carbon Dioxide 19 mmol/L (22-32); Chloride 108 mmol/L (98-107); Estimated Glomerular Filt Rate > 60 mL/min (>60); Glucose 119 mg/dL (70-100); HEMOLYSIS < 15 (0-50); Potassium 3.3 mmol/L (3.4-5.1); Sodium 135 mmol/L (137-145)
[2022-02-04 06:17] LABS: Add Manual Diff / Slide Review SLIDE REVIEW; White Blood Cell Count 1.8 X10^3/uL (4.5-11.0)
[2022-02-04] MEDS: FUROSEMIDE 40 MG/4 ML VIAL IV (06:33)
[2022-02-04 07:03] LABS: Macrocytosis 1+
[2022-02-04] MEDS: LEVOTHYROXINE 125 MCG TABLET PO (08:15)
[2022-02-04] MEDS: levoFLOXacin 250 MG TABLET 750 MG PO (08:16)
[2022-02-04] MEDS: PANTOPRAZOLE DR 20 MG TABLET PO (08:16)
--- NOTE | 2022-02-04 08:28 | PC.NURSE ---
RT stopped to give treatment earlier but patient was sleeping, called for treatment to be given now as patient is awake and eating breakfast.
--- NOTE | 2022-02-04 08:40 | PC.NURSE ---
pt is requesting to go home today. informed pt that hospitalist is going to come down and talk to her and they can discuss going home. pt verbalized understanding of plan
[2022-02-04] MEDS: ALBUTEROL/IPRATROPIUM 3 ML AMPUL INH (08:52)
[2022-02-04] MEDS: BUDESONIDE 0.5 MG/2 ML NEB INH (08:52)
--- NOTE | 2022-02-04 09:20 | RT ---
acapella given, pt did great x10 with good cough. no distress noted and on 5 lpm nc
--- NOTE | 2022-02-04 10:17 | PC.NURSE ---
pt has 0900 nonformulary medications. pt states her medications are at home. daughter is going to come get pt and pt is going to take her medications when she gets home.
--- NOTE | 2022-02-04 10:50 | PC.NURSE ---
pt daughter arrived with oxygen tank for discharge home. Oxygen tank brought is almost empty. pt education given to check O2 level once home and use her home oxygen to get sats up into the 90s if she is low or tank completely runs out on way home. pt verbalized understanding of this, does not want to wait for daughter to drive back to home and get new tank.
--- NOTE | 2022-02-04 13:10 | PM.DS.1 ---
History of Present Illness History of Present Illness Date Patient Seen: 02/03/22 Chief complaint: Thinks blood clot Narrative: Per admitting provider: 51-year-old female presents emergency department due to right-sided chest pain onset approximately 10 hours ago at 5:00 a.m. this morning.? Patient states that she was seen a week ago by [facility] walk-in clinic and treated for suspected pneumonia with oral antibiotics, patient is unsure of exact antibiotic but states Cefdinir.? Also given oral steroids as well as a DuoNeb which she has been using.? Patient reports that the pain is worse with deep breathing.? Denies any left-sided chest pain, left arm pain, nausea, vomiting, fevers, or any other concerning signs or symptoms.? Patient has a history of COPD, uses CPAP machine at night.? States that her baseline O2 is at 86-89%.? Patient reports a similar episode happening 12 months ago where she was eventually transferred to pulmonology due to a PE.? Patient was unable to state cause of PE.? Was placed on eliquis on discharge and stopped taking 2 months ago due to spontaneous bleeding in her abdomen. History of CHF, and pulmonary hypertension.? Reports being tested negative for influenza and COVID.? Firebrick Layer is a Dr. Quick at [facility]. When I saw the patient in the ER she still requiring 5 L of nasal cannula to be comfortable and still seems to be in respiratory distress. Having intermittent cough but able to provide the details regarding her illness. She started using additional doses of Lasix to help with the swelling. She said that typically she will be transferred to for further care, I discussed regarding care that we can provide here and both daughter and patient agreed to stay at [facility] for further care. Discharge Providers Provider Date of admission: 02/03/22 18:57 Discharge Date: 02/04/22 Primary care physician: Mary Muller MD Discharge provider: Meet Stone MD Summary Hospital Course Discharge Diagnosis: 1. Acute on chronic hypoxemic respiratory failure 2. Pneumonia 3. Congestive heart failure 4. Pulmonary hypertension 5. Obstructive sleep apnea 6. Depression 7. Leukopenia Hospital Course: Ms. Corado came in to the hospital with trouble breathing. She was found to be hypoxemic and requiring oxygen. She has oxygen available at home but does not use it during the day, she uses it with CPAP at night. Workup was done which was concerning for pneumonia and/or pulmonary edema. She was treated with antibiotics and diuretics and steroid and began to improve. She ultimately decided to leave against medical advice. She was still requiring nasal cannula oxygen. She was advised that she was at risk for respiratory failure, decompensation and if she left and she expressed understanding. She was advised to follow up as soon as possible with one of her physicians. She was recommended to come back to the hospital if she felt worse which she was agreeable to. She was given a prescription for steroids, antibiotics, and lasix. Exam Vital Signs (past 8 hours): - 02/04/22 07:00 02/04/22 07:30 02/04/22 08:00 Pulse Rate 85 94 H 100 H Respiratory Rate Pulse Oximetry 95 94 Oxygen Flow Rate 02/04/22 08:30 02/04/22 08:53 02/04/22 09:04 Pulse Rate 92 H 92 H 94 H Respiratory Rate 24 24 Pulse Oximetry 91 90 L 92 Oxygen Flow Rate 3 02/04/22 09:00 02/04/22 09:30 02/04/22 10:00 Pulse Rate 90 95 H 93 H Respiratory Rate Pulse Oximetry 92 92 Oxygen Flow Rate Oxygen Delivery Method CPAP Oxygen Flow Rate 3 Narrative Exam Narrative: GEN: in respiratory distress CV: tachcyardic PULM: wheezes and coarse breath sounds bilaterally ABD: soft, nontender, nondistended, no organomegaly EXT: warm and well perfused with no edema NEURO: awake, alert, oriented x4 Objective Labs Result Diagrams: 02/04/22 05:33 02/04/22 05:33 Labs: Laboratory Results - last 24 hr 02/03/22 02/03/22 02/03/22 15:00 15:00 15:00 WBC 2.7 L RBC 2.80 L Hgb 10.6 L Hct 29.5 L MCV 105.5 H MCH 37.7 H MCHC 35.8 RDW 14.3 Plt Count 174 Neut % (Auto) 78.7 H Lymph % (Auto) 15.8 L Garrard % (Auto) 4.7 Eos % (Auto) 0.6 L Baso % (Auto) 0.2 Neut # (Auto) 2100 Lymph # (Auto) 400 L Garrard # (Auto) 100 Eos # (Auto) 0 Baso # (Auto) 0 RBC Morphology Macrocytosis PT 11.4 INR 1.0 APTT 28 D-Dimer 929 H ABG pH ABG pCO2 ABG pO2 ABG HCO3 ABG Total CO2 ABG O2 Saturation ABG Base Excess FiO2 Sodium 129 L Potassium 3.3 L Chloride 99 Carbon Dioxide 19 L BUN 11 Creatinine 0.77 Estimated GFR > 60 BUN/Creatinine Ratio 14.3 Glucose 99 Lactate Calcium 8.6 Magnesium 1.3 L Total Bilirubin 1.0 AST 29 ALT 18 Alkaline Phosphatase 109 Total Creatine Kinase 41 CK-MB (CK-2) TNP CK-MB (CK-2) Rel Index TNP Troponin I < 0.012 NT-Pro-B Natriuret Pep Total Protein 8.7 H Albumin 3.6 Globulin 5.1 H Albumin/Globulin Ratio 0.7 L Lipase 136 Procalcitonin SARS-CoV-2 (PCR) Influenza A (RT-PCR) Influenza B (RT-PCR) RSV (PCR) 02/03/22 02/03/22 02/03/22 15:00 15:00 15:00 WBC RBC Hgb Hct MCV MCH MCHC RDW Plt Count Neut % (Auto) Lymph % (Auto) Garrard % (Auto) Eos % (Auto) Baso % (Auto) Neut # (Auto) Lymph # (Auto) Garrard # (Auto) Eos # (Auto) Baso # (Auto) RBC Morphology Macrocytosis PT INR APTT D-Dimer ABG pH ABG pCO2 ABG pO2 ABG HCO3 ABG Total CO2 ABG O2 Saturation ABG Base Excess FiO2 Sodium Potassium Chloride Carbon Dioxide BUN Creatinine Estimated GFR BUN/Creatinine Ratio Glucose Lactate 1.9 Calcium Magnesium Total Bilirubin AST ALT Alkaline Phosphatase Total Creatine Kinase CK-MB (CK-2) CK-MB (CK-2) Rel Index Troponin I NT-Pro-B Natriuret Pep Total Protein Albumin Globulin Albumin/Globulin Ratio Lipase 153 Procalcitonin 0.11 SARS-CoV-2 (PCR) Negative Influenza A (RT-PCR) Flu a negative Influenza B (RT-PCR) Flu b negative RSV (PCR) Negative 02/03/22 02/03/22 02/03/22 15:00 17:26 19:13 WBC RBC Hgb Hct MCV MCH MCHC RDW Plt Count Neut % (Auto) Lymph % (Auto) Garrard % (Auto) Eos % (Auto) Baso % (Auto) Neut # (Auto) Lymph # (Auto) Garrard # (Auto) Eos # (Auto) Baso # (Auto) RBC Morphology Macrocytosis PT INR APTT D-Dimer ABG pH 7.49 H ABG pCO2 24.7 L* ABG pO2 47 L* ABG HCO3 19 L ABG Total CO2 19 L ABG O2 Saturation 87 L ABG Base Excess -5.0 L FiO2 21 Sodium Potassium Chloride Carbon Dioxide BUN Creatinine Estimated GFR BUN/Creatinine Ratio Glucose Lactate Calcium Magnesium Total Bilirubin AST ALT Alkaline Phosphatase Total Creatine Kinase CK-MB (CK-2) CK-MB (CK-2) Rel Index Troponin I < 0.012 NT-Pro-B Natriuret Pep 419 H Total Protein Albumin Globulin Albumin/Globulin Ratio Lipase Procalcitonin SARS-CoV-2 (PCR) Influenza A (RT-PCR) Influenza B (RT-PCR) RSV (PCR) 02/04/22 02/04/22 05:33 05:33 WBC 1.8 L* RBC 2.42 L Hgb 9.1 L Hct 25.6 L MCV 105.8 H MCH 37.6 H MCHC 35.6 RDW 14.3 Plt Count 159 Neut % (Auto) 55.9 D Lymph % (Auto) 32.6 Garrard % (Auto) 11.3 Eos % (Auto) 0.0 L Baso % (Auto) 0.2 Neut # (Auto) 1000 L Lymph # (Auto) 600 L Garrard # (Auto) 200 Eos # (Auto) 0 Baso # (Auto) 0 RBC Morphology See below Macrocytosis 1+ H PT INR APTT D-Dimer ABG pH ABG pCO2 ABG pO2 ABG HCO3 ABG Total CO2 ABG O2 Saturation ABG Base Excess FiO2 Sodium 135 L Potassium 3.3 L Chloride 108 H Carbon Dioxide 19 L BUN 9 Creatinine 0.67 Estimated GFR > 60 BUN/Creatinine Ratio 13.4 Glucose 119 H Lactate Calcium 8.1 L Magnesium Total Bilirubin AST ALT Alkaline Phosphatase Total Creatine Kinase CK-MB (CK-2) CK-MB (CK-2) Rel Index Troponin I NT-Pro-B Natriuret Pep Total Protein Albumin Globulin Albumin/Globulin Ratio Lipase Procalcitonin SARS-CoV-2 (PCR) Influenza A (RT-PCR) Influenza B (RT-PCR) RSV (PCR) [facility] Medical History Congestive heart failure Morbid obesity Pulmonary hypertension Sleep apnea Social History Smoking Status: Current every day smoker Discharge Plan Discharge Plan Patient Disposition: Left Against Medical Advice Provider Discharge Comment: Ms. Corado came in to the hospital with trouble breathing. She needed oxygen. Her lungs looked like they had pneumonia. She was given antibiotics and steroid prescription. She declined to stay in the hospital though this was our medical recommendation. She will follow up with her physician in a few days. Discharge orders & Medications Prescriptions: New levofloxacin 250 mg Tablet 750 mg PO 0700 Qty: 5 0RF prednisone 20 mg tablet 40 mg PO DAILY Qty: 10 0RF Continued furosemide 40 mg tablet 40 mg PO DAILY potassium chloride 10 mEq tablet extended release 10 meq PO DAILY levothyroxine 125 mcg tablet 125 mcg PO BID albuterol sulfate 90 mcg/actuation HFA aerosol inhaler 90 mcg INHALATION BID spironolactone 50 mg tablet 50 mg PO DAILY bupropion HCl 150 mg tablet extended release 24 hr 150 mg PO DAILY budesonide-formoterol [Symbicort] 160-4.5 mcg/actuation HFA aerosol inhaler 1 puff INHALATION BID ambrisentan 10 mg tablet 10 mg PO DAILY fluoxetine 60 mg tablet 60 mg PO DAILY Uptravi 800 mcg tablet 800 mcg PO DAILY tadalafil (pulm. hypertension) 20 mg tablet 20 mg PO DAILY Follow up/Referrals: Mary Muller MD [Primary Care Provider] - 1 Week Diet/Activity/Treatments Diet: Regular and Low-sodium Visit Report/Discharge Packet Stand Alone Forms: Patient Portal/API Discharge Data Primary Care Provider: Mary Muller Attending Provider: Siddhartha Dash
[2022-02-04 14:04] LABS: Enterococcus species Not Detected (Not Detect); Listeria monocytogenes Not Detected (Not Detect)
[2022-02-04 14:05] LABS: Acinetobacter baumannii Not Detected (Not Detect); Candida albicans Not Detected (Not Detect); Candida glabrata Not Detected (Not Detect); Candida krusei Not Detected (Not Detect); Candida parapsilosis Not Detected (Not Detect); Candida tropicalis Not Detected (Not Detect); E. coli Not Detected (Not Detect); Enterobacter cloacae complex Not Detected (Not Detect); Enterobacteriaceae species Not Detected (Not Detect); Haemophilus influenzae Not Detected (Not Detect); KPC (carbapenem-resist gene) Not Detected (Not Detect); Methicillin-resistant gene Detected (Not Detect); Neisseria meningitidis Not Detected (Not Detect); Proteus species Not Detected (Not Detect); Pseudomonas aeruginosa Not Detected (Not Detect); Serratia marcescens Not Detected (Not Detect); Staphylococcus species Detected (Not Detect); Streptococcus agalactiae (Gr B Not Detected (Not Detect); Streptococcus pneumonia Not Detected (Not Detect); Streptococcus pyogenes (Gr A) Not Detected (Not Detect); Streptococcus species Not Detected (Not Detect)
== END 2022-02-04 22:15 | disposition left against medical advice (07) ==
LOC: ED 18:58 → AC 19:04
PROVIDERS: Emergency Medicine; Family Medicine; Admitting Provider Internal Medicine; Emergency Provider Physician Assistant Medical; PCP Internal Medicine; Referring Provider Physician Assistant Medical; Visit Provider Internal Medicine
DX: J96.21 Acute and chronic respiratory failure with hypoxia (principal); I27.20 Pulmonary hypertension, unspecified; I50.22 Chronic systolic (congestive) heart failure; R78.81 Bacteremia; G47.33 Obstructive sleep apnea (adult) (pediatric); E66.01 Morbid (severe) obesity due to excess calories; D72.819 Decreased white blood cell count, unspecified; F32.A Depression, unspecified; Z20.822 Contact with and (suspected) exposure to COVID-19; Z87.891 Personal history of nicotine dependence; Z53.29 Procedure and treatment not carried out because of patient's decision for other reasons
CPT/HCPCS: 0241U; 36415; 36600; 71045; 71275; 80048; 80053; 81003; 81025; 82550; 82805; 83605; 83690; 83735; 83880; 84145; 84484; 85025; 85379; 85610; 85730; 87040; 87077; 87150; 87186; 93005; 94640; 94660; 94762; 96361; 96365; 96366; 96375; 96376; 99285; G0378; J1940; J1956; J2930; Q9967

== ENCOUNTER 2023-02-01 14:23 | Emergency (ER) | payer OTHER, MEDICAID, SELFPAY ==
[2023-02-01 14:27] VITALS: BP 116/56; PULSE 94; RESP 20; TEMP 36.2; BMI 38.4
--- NOTE | 2023-02-01 16:24 | PC.NURSE ---
Pt reports redness started on forehead/face about 5 days after starting doxycycline for a breast infection. Pt took entire course of antibiotics, 7 days. Reports breast infection issue resolved. Redness/dry skin started on about 01/25 and has progressed from face to chest, under breast and on both arms. Skin is dry/irritated/itchy. Pt tried triamcinolone acetonide cream, eucerin dry skin lotion and PO benadryl without relief. Denies any trouble breathing, eating or drinking.
--- NOTE | 2023-02-01 16:52 | ED_ITS ---
HPI - Skin/Abscess/Foreign Bdy <Tavo Mas PA-C - Last Filed: 02/01/23 18:50> General Chief complaint: Skin/Abscess/Foreign Body Stated complaint: rash face and neck Time Seen by Provider: 02/01/23 16:09 Source: patient Mode of arrival: Ambulatory Limitations: no limitations History of Present Illness HPI narrative: 52-year-old female presents to the ED with 1 week of rash on the face and trunk. Patient states that she had a skin infection on her left breast, was treated at the [facility] walk-in clinic with a 7 day course of doxycycline. Patient states that on day 5 of the medication, she started noticing a red, itchy, stinging rash start on her face and spread down to her trunk. Patient denies any mucosal involvement. Patient denies tongue swelling, lip swelling, trouble breathing, chest pain. Patient is unsure if she has had doxycycline before. Patient also states that the rash on the left breast has healed well. Related Data Home Medications Medication Instructions Recorded Confirmed albuterol sulfate 90 mcg/actuation 90 mcg inhalation BID 02/06/21 02/06/21 aerosol inhaler ambrisentan 10 mg tablet 10 mg PO DAILY 02/06/21 02/06/21 budesonide-formoterol HFA 160 1 puff inhalation BID 02/06/21 02/06/21 mcg-4.5 mcg/actuation aerosol inhaler (Symbicort) bupropion HCl 150 mg 24 hr tablet, 150 mg PO DAILY 02/06/21 02/06/21 extended release fluoxetine 60 mg tablet 60 mg PO DAILY 02/06/21 02/06/21 furosemide 40 mg tablet 40 mg PO DAILY 02/06/21 02/06/21 levothyroxine 125 mcg tablet 125 mcg PO BID 02/06/21 02/06/21 potassium chloride 10 mEq 10 meq PO DAILY 02/06/21 02/06/21 tablet,extended release selexipag 800 mcg tablet (Uptravi) 800 mcg PO DAILY pulmonary 02/06/21 02/06/21 hypertension spironolactone 50 mg tablet 50 mg PO DAILY 02/06/21 02/06/21 tadalafil (pulm. hypertension) 20 20 mg PO DAILY 02/06/21 02/06/21 mg tablet (pulmonary hypertension) Previous Rx's Medication Instructions Recorded levofloxacin 250 mg tablet 750 mg (3 x 250 mg) PO 0700 #5 tabs 02/04/22 prednisone 20 mg tablet 40 mg (2 x 20 mg) PO DAILY #10 tabs 02/04/22 prednisone 5 mg tablets in a dose See Rx Instructions PO .COMPLEX 02/01/23 pack #21 ea triamcinolone acetonide 0.025 % 1 applic topical TID #454 grams 02/01/23 topical ointment Allergies Allergy/AdvReac Type Severity Reaction Status Date / Time doxycycline Allergy Rash Verified 02/01/23 17:58 Penicillins AdvReac Verified 02/06/21 09:27 Review of Systems <Tavo Mas PA-C - Last Filed: 02/01/23 18:50> Constitutional Constitutional: Denies chills, Denies fatigue, Denies fever(s), Denies frequent falls, Denies lethargy and Denies weakness Eyes Eyes: Denies change in vision, Denies eye discharge, Denies irritation and Denies loss of vision ENT Ears, Nose, Mouth, and Throat: Denies change in voice, Denies dizziness, Denies neck pain, Denies sore throat and Denies throat swelling Cardiovascular Cardiovascular: Denies chest pain, Denies irregular heart rhythm, Denies lightheadedness, Denies palpitations, Denies dyspnea, Denies dyspnea on exertion and Denies orthopnea Respiratory Respiratory: Denies cough, Denies dyspnea, Denies dyspnea on exertion and Denies wheezing Gastrointestinal Gastrointestinal: Denies abdominal pain, Denies change in bowel habits, Denies diarrhea, Denies nausea and Denies vomiting Musculoskeletal Musculoskeletal: Denies neck pain and Denies numbness Integumentary/Breasts Skin/Breast: Denies pruritus, Denies erythema, Reports rash and Denies wounds Neurologic Neurologic: Denies behavioral changes, Denies confusion, Denies dizziness, Denies frequent falls, Denies loss of vision, Denies numbness and Denies weakness Psychiatric Psychiatric: Denies anxiety, Denies behavioral changes, Denies confusion, Denies depression, Denies homicidal ideation and Denies suicidal ideation Endocrine Endocrine: Denies fatigue, Denies flushing and Denies palpitations Hematologic/Lymphatic Hematologic/Lymphatic: Denies easy bruising Allergic/Immunologic Allergic/Immunologic: Denies urticaria, Denies throat swelling and Denies wheezing Patient History <Tavo Mas PA-C - Last Filed: 02/01/23 18:50> Medical History Sleep apnea Morbid obesity Congestive heart failure Pulmonary hypertension Social History Smoking Status: Current every day smoker Smoking Status: Current every day smoker tobacco type: cigarettes alcohol intake frequency: a few times a week Alcohol type: hard liquor Substance Use Type: does not use Exam <Tavo Mas PA-C - Last Filed: 02/01/23 18:50> Narrative Exam Narrative: Const General:?cooperative, healthy appearing and comfortable [facility] Head:?normal to inspection Ears:?hearing grossly normal bilaterally Nose:?external nose normal Face and sinus:?normal facial exam and sinuses nontender Mouth:?oral mucosae normal Throat:?posterior oropharynx normal Eyes General:?appearance normal, both eyes and all related structures Neck Neck:?normal visual inspection and no lymphadenopathy noted Resp Effort & Inspection:?normal respiratory effort Auscultation:?clear to auscultation bilaterally Cardio Rate:?regular rate Rhythm:?regular rhythm Integumentary Dry, scaly, contiguous, erythematous rash to the face and trunk. No signs of superimposed bacterial infection. No mucosal involvement. No skin sloughing or bullae Neuro General:?patient alert, patient awake and patient oriented x3 Initial Vital Signs Initial Vital Signs: Vital Signs Temperature 97.1 F L 02/01/23 14:27 Pulse Rate 94 H 02/01/23 14:27 Respiratory Rate 20 02/01/23 14:27 Blood Pressure 116/56 L 02/01/23 14:27 Oxygen Delivery Method Room Air 02/01/23 14:27 <Rika Bradford DO - Last Filed: 02/06/23 07:39> Initial Vital Signs Initial Vital Signs: Vital Signs Temperature 97.1 F L 02/01/23 14:27 Pulse Rate 94 H 02/01/23 14:27 Respiratory Rate 20 02/01/23 14:27 Blood Pressure 116/56 L 02/01/23 14:27 Oxygen Delivery Method Room Air 02/01/23 14:27 Course <Tavo Mas PA-C - Last Filed: 02/01/23 18:50> Vital Signs Vital signs: Vital Signs - 8 hr 02/01/23 14:27 02/01/23 18:05 Temperature 97.1 F L Pulse Rate 94 H Respiratory Rate 20 Blood Pressure 116/56 L Pulse Oximetry 90 L Oxygen Delivery Method Room Air Room Air <Rika Bradford DO - Last Filed: 02/06/23 07:39> Vital Signs Vital signs: Vital Signs - 8 hr 02/01/23 14:27 02/01/23 18:05 Temperature 97.1 F L Pulse Rate 94 H Respiratory Rate 20 Blood Pressure 116/56 L Pulse Oximetry 90 L Oxygen Delivery Method Room Air Room Air MDM - Skin/Abscess/Foreign Bdy <Tavo Mas PA-C - Last Filed: 02/01/23 18:50> MDM Narrative Medical decision making narrative: 52-year-old female presents to the ED with 1 week of rash on the face and trunk. Patient states that she had a skin infection on her left breast, was treated at the [facility] walk-in clinic with a 7 day course of doxycycline. History and physical are most consistent with a allergic reaction to the doxycycline. Will prescribe a prednisone taper, also recommend Benadryl and Pepcid AC. Also prescribed a triamcinolone ointment. Recommend follow-up with PCP as soon as possible. ED return precautions were discussed with patient. Patient verbalized understanding. Medical records reviewed: Yes Discharge Plan Departure Patient Disposition: Home Clinical Impression: Allergic reaction Qualifiers: Encounter type: initial encounter Qualified Code(s): T78.40XA - Allergy, unspecified, initial encounter Instructions: DI for Adverse Drug Reaction -- Allergic Activity Restrictions/Additional Instructions: You were evaluated in the ED today for a skin rash. Your rash is most likely due to a allergic reaction to the antibiotic doxycycline that you recently took. You are being prescribed prednisone, please take that as prescribed. You were also being prescribed a steroid ointment to apply to the affected areas. Please also take Benadryl 50 mg 3 times a day. Please also take Pepcid AC twice a day. Both Pepcid AC and Benadryl are [id number]. Return to the ED if you have any lip swelling, tongue swelling, rash in in the mucosal areas such as the mouth or genital area, trouble breathing, chest pain, worsening symptoms. Prescriptions: New prednisone 5 mg tablets,dose pack See Rx Instructions .ROUTE .COMPLEX Qty: 21 0RF Rx Instructions: orally per package directions triamcinolone acetonide 0.025 % ointment 1 applic topical TID Qty: 454 0RF No Action levofloxacin 250 mg Tablet 750 mg PO 0700 Qty: 5 0RF prednisone 20 mg tablet 40 mg PO DAILY Qty: 10 0RF furosemide 40 mg tablet 40 mg PO DAILY potassium chloride 10 mEq tablet extended release 10 meq PO DAILY levothyroxine 125 mcg tablet 125 mcg PO BID albuterol sulfate 90 mcg/actuation HFA aerosol inhaler 90 mcg INHALATION BID spironolactone 50 mg tablet 50 mg PO DAILY bupropion HCl 150 mg tablet extended release 24 hr 150 mg PO DAILY budesonide-formoterol [Symbicort] 160-4.5 mcg/actuation HFA aerosol inhaler 1 puff INHALATION BID ambrisentan 10 mg tablet 10 mg PO DAILY fluoxetine 60 mg tablet 60 mg PO DAILY Uptravi 800 mcg tablet 800 mcg PO DAILY tadalafil (pulm. hypertension) 20 mg tablet 20 mg PO DAILY Referrals: Mary Wren MD [Primary Care Provider] - Stand Alone Forms: Patient Portal/API ED Sign-out <Rika Bradford DO - Last Filed: 02/06/23 07:39> Cosign ED Attending Cosignature Attestation: I was available for consultation.
--- NOTE | 2023-02-01 18:03 | PC.NURSE ---
PT O2 sat 90% at discharge. She reports history of baseline O2 being 90-92 due to pulmonary hypertension and at times uses oxygen. She declines further workup and wants to discharge.
[2023-02-01 18:05] VITALS: O2SAT 90
== END 2023-02-01 18:06 | disposition home or self-care (01) ==
PROVIDERS: Emergency Provider Student in an Organized Health Care Education/Training Program; PCP Internal Medicine
DX: R21 Rash and other nonspecific skin eruption (principal); T78.40XA Allergy, unspecified, initial encounter
CPT/HCPCS: 99281

== ENCOUNTER 2025-02-01 13:24 | Inpatient (IN) | payer MEDICARE, MEDICAID, SELFPAY ==
[2025-02-01] VITALS (12 sets, daily range): BP systolic 99–126; BP diastolic 60–81; PULSE 83–98; RESP 16–32; TEMP 36.6–37; O2SAT 85–97; BMI 39.5; BMI 39.1
--- OUTSIDE RECORDS SUMMARY | 2025-02-01 13:30 | XMS_ITS | Clinical Summary ---
Author Organization [facility] gt Address [address] [place] [address] Care Team Providers Care Director Of Primary Name Role Phone Mahesh Lee MD Unavailable Unavailable Anne Miranda RN Unavailable Unavailable Lucy Serrano RN Unavailable Edy Emanuel RN Unavailable [phone] González Arriaga MD Unavailable Unavailable González Arriaga MD Unavailable Unavailable Mary Wren MD Primary Care Provider + Allergies Active Allergy Reactions Criticality Noted Date Comments Cephalexin Skin: Hives Medium 07/26/2017 Tolerates ceftriaxone Penicillins Skin: Rash Medium 11/01/2013 Rash that occurred 20-30 yrs ago; tolerates amoxicillin and ceftriaxone Medications Levonorgestrel 20 MCG/24HR Intrauterine IUDIndications:Enc ounter for insertion of intrauterine contraceptive device,Excessive and frequent menstruation with irregular cycle 1 Intra Uterine Device by Intrauterine route One time. 12/08/19 16 Active albuterol (2.5 MG/3ML) 0.083% nebulizer solutionIndication s:Moderate persistent asthma with acute exacerbation (HCC) inhale contents of 1 vial in nebulizer every 3 hours if needed for shortness of breath or wheezing 250 ampule 1 03/14/19 20 Active spironolactone 25 MG tabletIndications: PAH (pulmonary artery hypertension) (HCC) take 2 tablets by mouth daily 180 tablet 1 10/23/19 20 Active triamcinolone 0.1 % creamIndications:R jah and nonspecific skin eruption apply to affected area ON arms twice a day if needed CALL MD IF ANY SIGNS OF INFECTION 45 g 1 11/12/19 20 Active FLUoxetine 20 MG capsuleIndications :Major depressive disorder with single episode, in partial remission take 3 capsules by mouth once daily 270 capsule 11/20/19 20 Active buPROPion SR 150 MG 12 hr tabletIndications: Major depressive disorder with single episode, in partial remission Take 1 tablet (150 mg) by mouth daily. Please establish care with a new Primary Care Provider before this fill runs out. 30 tablet 03/03/19 21 Active albuterol HFA 108 (90 Base) MCG/ACT inhalerIndications :Mild intermittent asthma without complication (HCC) inhale 2 puffs by mouth and INTO THE LUNGS every 4 hours if needed for wheezing or shortness of breath 34 g 03/09/19 21 Active ondansetron 4 MG disintegrating tabletIndications: Nausea Dissolve 1 tablet (4 mg) on top of tongue and swallow every 12 hours as needed for nausea/vomiting . 60 tablet 3 05/16/19 21 Active apixaban (Eliquis) 5 MG tabletIndications: Acute pulmonary embolism, unspecified pulmonary embolism type, unspecified whether acute cor pulmonale present (HCC) Take 1 tablet (5 mg) by mouth 2 times a day. 180 tablet 3 06/22/19 22 Active omeprazole [address] capsuleIndications :Gastroesophageal reflux disease Take 1 capsule (40 mg) by mouth 2 times a day. 60 capsule 09/18/19 22 Active levothyroxine 125 MCG tablet Take 250 mcg by mouth daily on an empty stomach. Active magnesium oxide 400 MG tablet Take 400 mg by mouth 2 times a day. Active traZODone 50 MG tablet Take 50 mg by mouth at bedtime as needed for sleep. Active multivitamin iron-folic acid 27-1 mg tablet Take 1 tablet by mouth daily. 30 tablet 11/22/19 22 Active thiamine mononitrate 100 MG tablet Take 1 tablet (100 mg) by mouth daily. 30 tablet 11/23/19 22 Active azelastine 0.1 % nasal sprayIndications:N on-seasonal allergic rhinitis due to other allergic trigger [place] 2 sprays into each nostril 2 times a day. 30 mL 2 10/17/19 24 Active ambrisentan 10 MG tabletIndications: PAH (pulmonary artery hypertension) (HCC) TAKE 1 TABLET BY MOUTH 1 TIME A DAY. DO NOT HANDLE IF 30 tablet 02/18/19 25 Active Symbicort 160-4.5 MCG/ACT inhalerIndications :Moderate persistent asthma with acute exacerbation (HCC) INHALE 2 PUFFS BY MOUTH/ INTO THE LUNGS EVERY 12 HOURS 10.2 g 05/28/19 25 Active ferrous sulfate 324 (65 Fe) MG EC tabletIndications: Iron deficiency anaemia TAKE 1 TABLET BY MOUTH DAILY 90 tablet 3 06/27/19 25 Active selexipag (Uptravi) 200 MCG tabletIndications: PAH (pulmonary artery hypertension) (HCC) Take 1 tablet (200 mcg) by mouth 2 times a day. 200mcg tabs to add to 800mcg tabs to titrate by 200mcg q 2 weeks to dose of 1600mcg BID 240 tablet 08/01/19 25 Active selexipag (Uptravi) 800 MCG tabletIndications: PAH (pulmonary artery hypertension) (HCC) Take 1 tablet (800 mcg) by mouth 2 times a day. 60 tablet 08/01/19 25 Active potassium chloride ER 20 MEQ ER tabletIndications: Hypokalemia TAKE 3 TABLETS BY MOUTH DAILY 270 tablet 09/05/19 25 Active torsemide 20 MG tabletIndications: Pulmonary hypertension (HCC) TAKE 1-2 TABLETS BY MOUTH DAILY DIRECTED 180 tablet 3 11/05/19 25 Active tadalafil 20 MG tabletIndications: Primary pulmonary hypertension (HCC) TAKE 2 TABLETS BY MOUTH DAILY. 60 tablet 12/19/19 25 Active furosemide 20 MG tabletIndications: PAH (pulmonary artery hypertension) (HCC) TAKE 2 TABLETS(40 MG) BY MOUTH DAILY 180 tablet 10/11/19 22 022 Discontin ued(Disco ntinued by provider) Active Problems Problem Noted Date Diagnosed Date Iron deficiency 05/11/2023 GI bleed 11/16/2021 Anemia 09/11/2021 Overview (11/29/2021): Added automatically from request for surgery [id number] Acute pulmonary embolism 02/11/2021 Moderate persistent asthma with acute exacerbati on 03/21/2019 Gastroesophageal reflux disease without esophagi tis 01/02/2016 Major depressive disorder wi th single episode, in partial remission 01/02/2016 Premenopausal menorrhagia 11/25/2015 Iron deficiency anemia due to chronic blood loss 11/24/2015 Acute on chronic diastolic heart failure 015 Body mass index (BMI) of 50-59.9 in adult 2014 Acute and chronic cholecystitis 10/17/2014 Overview (10/14/2015): Overview: 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 Primary pulmonary hypertension 07/04/2012 Resolved Problems Problem Noted Date Diagnosed Date Resolved Date Alcoholic cirrhosis of liver without ascites 09/17/2021 GI bleed 09/14/2021 09/17/2021 Acute hypoxemic respiratory failure 02/11/2021 09/17/2021 Pneumonia 02/11/2021 09/17/2021 Pulmonary hypertension 02/11/202109/17 Shortness of breath 02/06/2021 09/18/19 Acute on chronic respiratory failure with hypoxia and hypercapnia 06/19/2019 09/17/2021 Mild intermittent asthma without complication 01/21/20 16 09/17/2021 Rash and nonspecific skin eruption 01/02/2016 09/17/2021 Encounters Date Type Department Care Team Description 12/18/2024 Patient E-mail Medicine Pulmonary Vascular Disease [address] [place] [address] Belgica Mcclellan, RN Uptravi 12/18/2024 Documentation Medicine Pulmonary Vascular Disease [address] [place] [address] Belgica Mcclellan, RN Pulmonary Arterial Hypertension (Medication dose clarification) 12/17/2024 Refill Medicine Pulmonary Vascular Disease [address] [place] [address] Ricardo Quick MD Refill Request 11/27/2024 Documentation Located Within [facility] Sleep Medicine at [address] [place] [address] Esmer Thomas, Coordinator Sleep Apnea 11/19/2024 Documentation Located Within [facility] Sleep Medicine at [address] [place] [id number] Esmer Thomas, Coordinator Sleep Apnea 11/19/2024 Orders Only Located Within [facility] Sleep Medicine at [facility] [address], [address] [place] [address] Christiano Pardo MD MAITE on CPAP (Primary Dx) 11/02/2024 Refill Medicine Pulmonary Vascular Disease [address] [place] [address] Ricardo Quick MD Refill Request from Last 3 Months Immunizations Immunization Administration Dates Next Due Influenza quadrivalent PF 12/19/2018,10/2017,04/07/2017,02/12 Pneumococcal polysaccharide PPSV23 (Pneumovax 23) 02/12/2015 Tdap 09/09/2014 Family History Medical History Relation Comments No Known Problems Brother No Known Problems Father Cancer Mother No Known Problems Sister Relation Status Comments Brother Alive Father Mother Sister Alive Social History Tobacco Use Types Packs/Day Years Used Date Smoking Tobacco: Some Days Cigarettes 1 32.8 Started: 1979; Last attempted to quit: 11/14/2011 Smokeless Tobacco: Never Tobacco Cessation:Ready to Q uit: Not Asked; Counseling Given: Not Answered Comments:Smokes Cigars when drinking pt reported 02/19/2020 Alcohol Use Standard Drinks/Week Comments Yes 0 (1 standard drink = 0.6 oz pur e alcohol) AUDIT-C Answer Date Recorded Frequency of Alcohol Consumption 2-3 times a wee k 09/12/2018 Average Number of Drinks 3 or 4 019 Frequency of Binge Drinking Monthly 08/2018 PHQ-2 Answer Date Recorded PHQ-2 Score 2 12/19/2018 Comments No Sex and Gender Information Value Date Recorded Sex Assigned at Female 05/17/2023 5:47 PM PDT Legal Sex Female 8:46 AM PST Gender Identity Female 05/17/2023 5:47 PM PDT Sexual Orientation Straight 05/17/2023 5: 47 PM PDT Last Filed Vital Signs Vital Sign Reading Time Taken Comments Blood Pressure 102/69 07/30/2024 3:23 PM PDT post 5 mins Pulse 102 07/30/2024 3:23 PM PDT Temperature 36.4 C (97.5 F) 07/30/2024 3:23 PM PDT Respiratory Rate 16 05/30/2023 5:36 PM PDT Oxygen Saturation 88% 07/30/2024 3:2 3 PM PDT ra Inhaled Oxygen Concentration - - Weight 115.3 kg (254 lb 3.1 oz) 07/30/2024 3:23 PM PDT Height 168.9 cm (5' 6.5) 07/30/2024 3: 23 PM PDT Body Mass Index 40.42 07/30/2024 3:23 PM PDT Plan of Treatment Upcoming Encounters Date Type Department Care Team (Late st Contact Info) Description 03/11/2025 2:40 PM PST Appointment Medicine Echo Lab at [facility] [address] [facility], [id number] [place] [address] 03/11/2025 4:00 PM PST Office Visit Medicine Pulmonary Vascular Disease [address] [place] [address] Ricardo Quick MD [address] [place] [address] Health Maintenance Due Date Last Done Comments Hepatitis C Screening 1970 Depression Monitoring (PHQ-9) 1980 Medicare Annual Wellness Visit 1986 Hepatitis B Vaccine (1 of 3 - 19+ 3-dose series) 10/31/[address] Colonography 2013 FIT-DNA 2013 Sigmoidoscopy 2013 Breast Cancer Screening 03/30/2014 03/30/2012 Pneumococcal Vaccine: 50+ Years (2 of 2 - PCV) 02/13/2016 02/12/2015 RSV Vaccine (1 - Risk 50-74 years 1-dose series) 2018 Zoster Vaccine (1 of 2) 2018 FOBT/FIT 12/25/2019 12/24/2018 Lipid Disorders Screening 07/26/2021 07/26/2016 Lung Cancer Screening 09/11/2022 09/11/2021 , 09/11/2021, 02/07/2021, Additional history exists Cervical Cancer Screening 12/20/2023 HPV 12/20/2023 12/19/2018, 11/24/2015 Pap 12/20/2023 12/19/2018, 11/24/2015 COVID-19 Vaccine (1 - 2024- season) 2024 Influenza Vaccine (#1) 2024 9, 11/14/2017, 04/07/2017, Additional history exists DTaP, Tdap and Td Vaccines (3 - Td or Tdap) 06/15/2027 06/14/2017, 09/09/2014 Diabetes Screening 07/31/2027 07/30/2024, 1 03/03/2023, 09/05/2023, Additional history exists Colonoscopy 11/20/2031 11/19/2021 Colorectal Cancer Screening 11/20/2031 HIV Screening Completed 09/15/2021, 09/2021, 01/05/2009 HPV Vaccine (No Doses Required) Completed Hepatitis A Vaccine Aged Out No longe r eligible based on patient's age to complete this topic Meningococcal B Vaccine Aged Out No l onger eligible based on patient's age to complete this topic Procedures Procedure Name Priority Date/Time Associated Diagnosis Comments PREMANAGE Routine 02/01/2025 3:29 PM PST Procedure Note - 02/01/2025 3:29 PM PSTThis note is in progress. Patient has visited an external emergency department or has beenhospitalized [facility] --MOST RECENT VISIT-- ED Admit:02/01/25 13:24 Location:[facility] Attending Provider:Juliet^ED* Encounter Type:Emergency Major Class:Emergency Chief Complaint:Upper Respiratory, SOB, on O2 Pulm Hypertension Diagnosis: ED/C VISIT TRACKING (3 MO.) Visit Date Location [facility] TypeDx/Complaint -------- ------- [facility] Upper[facility]piratory, SOB, on O2 Pulm Hypertension INPATIENT VISIT TRACKING (1 MO.) Visit Date Location [facility] Dx/Complaint -------- ------- ---- ED VISIT COUNT (12 MO.) Visits Location ------ --------- [facility] [place] [facility] 1 Total Note: Visits indicate total known visits. ------ --CARE GUIDELINES-- (Below are the most recent care guidelines entered by a Medicine careprovider in [facility]. If Medicine guidelines do not exist in [facility], the mostrecent care guideline entered by an external hospital care provider isdisplayed.) [facility] has no Care Guidelines for this patient. Security Events No recent Security Events currently on file --CARE PROVIDERS-- CARE PROVIDERS Name Phone Type Service Dates ---- ----- ---- KIARRA DE OLIVEIRA [phone] Family Medicine Unknown -Current COMPREHENSIVE METABOLIC PANEL Routine 07/30/2024 10:56 AM PDT PAH (pulmonary artery hypertension) (HCC) COLONOSCOPY Routine 11/19/2021 1:33 PM PDT Gastrointestinal hemorrhage, unspecified gastrointestinal hemorrhage type HIV ANTIGEN AND ANTIBODY SCRN Routine 09/15/2021 9:22 AM PDT CTA CHEST PE W CONTRAST Routine 09/11/2021 7:10 PM PDT OCCULT BLOOD BY IA, STL Remote Lab 12/24/2018 3:51 PM PST Screening for colorectal cancer HPV ONLY (NON-DIE TECHNICIAN) Routine 12/19/2018 12:00 AM PST CERVICAL CANCER SCREENING Routine 12/19/2018 12:00 AM PST Screening for cervical cancer LIPID PANEL Routine 07/26/2016 4:53 PM PDT Screening for hyperlipidemia from Last 3 Months or Most Recently Relevant to Health Maintenance Results * (ABNORMAL) Comprehensive Metabolic Panel (07/30/2024 10:56 AM PDT) [facility] Signature Sodium 133(L) 135 - 145 meq/L 07/30/2024 1:40 PM PDT [facility] Dept of Lab Med Potassium 3.1(L) 3.6 - 5.2 meq/L 07/30/2024 1:40 PM PDT [facility] Lab Med Chloride 106 98 - 108 meq/L 07/30/2024 1:40 PM PDT [facility] Carbon Dioxide, Total 18(L) 22 - 32 meq/L 07/30/2024 1:40 PM PDT [facility] Anion Gap 9 4 - 12 07/30/2024 1:40 PM PDT [facility] Med Glucose 101 62 - 125 mg/dL 07/30/2024 1:40 PM PDT [facility] Urea Nitrogen 16 8 - 21 mg/dL 07/30/2024 1:40 PM PDT [facility] Creatinine 0.99 0.38 - 1.02 mg/dL 07/30/2024 1:40 PM PDT [facility] Protein (Total) 8.0 6.0 - 8.2 g/dL 07/30/2024 1:40 PM PDT [facility] Albumin 4.0 3.5 - 5.2 g/dL 07/30/2024 1:40 PM PDT [facility] Bilirubin (Total) 0.5 0.2 - 1.3 mg/dL 07/30/2024 1:40 PM PDT [facility] Med Calcium 9.3 8.9 - 10.2 mg/dL 07/30/2024 1:40 PM PDT [facility] AST (GOT) 20 9 - 38 U/L 07/30/2024 1:40 PM PDT [facility] Med Alkaline Phosphatase (Total) 126 31 - 132 U/L 07/30/2024 1:40 PM PDT [facility] ALT (GPT) 8 7 - 33 U/L 07/30/2024 1:40 PM PDT [facility] Lab Med eGFR by CKD-EPI 2020 >60 >59 mL/min/1.7 3_m2 07/30/2024 1:40 PM PDT [facility] Med Blood 07/30/2024 10:5 6 AM PDT us Ricardo Quick MD LAB BLOOD ORDERABLES Fin al Result [facility] DEPT OF LAB MED [address] [facility] [address] [place] [address] [facility] Dept of Lab Med [address] [facility] [place] [id number] [place] [address] * Colonoscopy (11/19/2021 1:33 PM PDT) Anatomical Region Laterality Modality Other 11/19/2021 12:1 9 PM PDT Narrative 11/19/2021 3:08 PM PDT [facility] Patient Name: Kane Montez Procedure Date: 11/19/2021 12:19 PM Date of : 1970 Attending MD: Maria Elena Camara MD Instrument Name: [id number] Exam: Colonoscopy Indications: Hematochezia, Melena, Iron deficiency anemia Patient Profile: melena, + BRBPR, please see EGD report. Providers: Maria Elena Camara MD, Mikey Gay, RN (Nurse) Referring MD: Tarik Ayala Requesting Provider: Medicines: Monitored Anesthesia Care Complications: No immediate complications. Procedure: Pre-Anesthesia Assessment: - Prior to the procedure, a History and Physical was performed, and patient medications and allergies were reviewed. The patient's tolerance of previous anesthesia was also reviewed. The risks and benefits of the procedure and the sedation options and risks were discussed with the patient. All questions were answered, and informed consent was obtained. Prior Anticoagulants: The patient has taken Eliquis (apixaban), last dose was 2 days prior to procedure. ASA Grade Assessment: IV - A patient with severe systemic disease that is a constant threat to life. After reviewing the risks and benefits, the patient was deemed in satisfactory condition to undergo the procedure. After I obtained informed consent, the scope was passed under direct vision. Throughout the procedure, the patient's blood pressure, pulse, and oxygen saturations were monitored continuously. The Olympus [id number] HD Slim Video Colonoscope was introduced through the anus and advanced to the terminal ileum. The colonoscopy was performed without difficulty. The patient tolerated the procedure well. The quality of the bowel preparation was good. The terminal ileum, ileocecal valve, appendiceal orifice, and rectum were photographed. Findings: The perianal and digital rectal examinations were normal. Three polyps were found in the entire colon. There is no endoscopic evidence of bleeding in the entire colon. The terminal ileum appeared normal. Internal hemorrhoids were found during retroflexion. The hemorrhoids were moderate. Impression: - Three polyps in the entire colon. - The examined portion of the ileum was normal. - Internal hemorrhoids. - No specimens collected. Recommendation: - [facility]. - Please see EGD for diet. - Has 3 polyps noted that were not removed given concern for bleeding. Will not recommend repeat colonoscopy for polyp removal in setting of such high cardiopulmonary risk. - If bleeding occurs again and remains hemodynamically stable will recommend treating conservatively without endoscopic intervention given high anesthesia risk. - ok to resume eliquis. - Continue present medications. Attending Participation: I was present and participated during the entire procedure, including non-caruso portions. MD Maria Elena Newman MD 11/19/2021 3:08:09 PM Number of Addenda: 0 Note Initiated On: 11/19/2021 12:19 PM Scope In: 1:08:02 PM Scope Out: 1:28:07 PM Procedure Note Maria Elena Camara MD - 11/19/2021 [facility] Patient Name: Kane Montez Procedure Date: 11/19/2021 12:19 PM Date of : 1970 Attending MD: Maria Elena Camara MD Instrument Name: [id number] Exam: Colonoscopy Indications: Hematochezia, Melena, Iron deficiency anemia Patient Profile: melena, + BRBPR, please see EGD report. Providers: Maria Elena Camara MD, Mikey Gay RN (Nurse) Referring MD: Tarik Ayala Requesting Provider: Medicines: Monitored Anesthesia Care Complications: No immediate complications. Procedure: Pre-Anesthesia Assessment: - Prior to the procedure, a History and Physical was performed, and patient medications and allergies were reviewed. The patient's tolerance of previousanesthesia was also reviewed. The risks and benefits of the procedure and the sedation options and risks were discussed with the patient. All questions wereanswered, and informed consent was obtained. PriorAnticoagulants: The patient has taken Eliquis (apixaban), last dosewas 2 days prior to procedure. ASA Grade Assessment: IV -A patient with severe systemic disease that is aconstant threat to life. After reviewing the risks andbenefits, the patient was deemed in satisfactory condition to undergo the procedure. After I obtained informed consent, the scope waspassed under direct vision. Throughout the procedure, the patient's blood pressure, pulse, and oxygensaturations were monitored continuously. The Olympus [id number] HD Slim Video Colonoscope was introducedthrough the anus and advanced to the terminal ileum. The colonoscopy was performed without difficulty. The patient tolerated the procedure well. The quality ofthe bowel preparation was good. The terminal ileum, ileocecal valve, appendiceal orifice, and rectum were photographed. Findings: The perianal and digital rectal examinations were normal. Three polyps were found in the entire colon. There is no endoscopic evidence of bleeding in the entire colon. The terminal ileum appeared normal. Internal hemorrhoids were found during retroflexion. The hemorrhoids were moderate. Impression: - Three polyps in the entire colon. - The examined portion of the ileum was normal. - Internal hemorrhoids. - No specimens collected. Recommendation: - [facility]. - Please see EGD for diet. - Has 3 polyps noted that were not removed givenconcern for bleeding. Will not recommend repeat colonoscopyfor polyp removal in setting of such high cardiopulmonary risk. - If bleeding occurs again and remainshemodynamically stable will recommend treating conservatively without endoscopic intervention given high anesthesia risk. - ok to resume eliquis. - Continue present medications. Attending Participation: I was present and participated during the entire procedure, including non-caruso portions. MD Maria Elena Newman MD 11/19/2021 3:08:09 PM Number of Addenda: 0 Note Initiated On: 11/19/2021 12:19 PM Scope In: 1:08:02 PM Scope Out: 1:28:07 PM Tarik Ayala MD GI PROCEDURE ORDERABLES Fin al Result * HIV Antigen and Antibody Screen (09/15/2021 9:22 AM PDT) Pathologist [facility] HIV Antigen and Antibody Result Nonreactive NREA 09/15/2021 4:01 PM PDT [facility] HIV Antigen and Antibody Interpretation Nonreactive. No evidence of infection with HIV-1 or HIV-2. 09/15/2021 4:01 PM PDT [facility] Blood specimen (specimen) 09/15/2021 9:22 AM PDT Jeremías Carvalho MD LAB BLOOD ORDERABLES Fi nal Result [facility] [address] [place] [address], [address] [place] [address] [facility] [address] [place] [id number], [address] [place] [address] * CTA Chest PE w Contrast - Image Storage (09/11/2021 7:10 PM PDT) Narrative OUTSIDE REFERENCE PERFORMING LAB - 09/14/2021 9:53 AM PDT No Result Report--Order for Image Storage Only us Imaging Ordering Provider External IMG CT PROCED URES Final Result OUTSIDE REFERENCE PERFORMING LAB (See Results) * Occult Blood By IA, Stool (12/24/2018 3:51 PM PST) Occult Bld 1 Result Negative NRN 12/25/2018 3:24 PM PST [facility] Stool specimen (specimen) 12/24/2018 3:51 PM PST 12/24/2018 3:51 PM PST Feliberto Kaplan PA-C LAB BODY FLUIDS AND STOOL S ORDERABLES Final Result [facility] [id number] [place] [address] * HPV ONLY (12/19/2018 12:00 AM PST) Demographics DEMOGRAPHICS DRAWN FROM PATHOLOGY REPORT PATIENT: KANE MONTEZ ([facility]) : 1970 SEX: F . CASE: [id number] COLLECTED: Dec 19 2018 RECEIVED: Dec 20 2018 [facility] PATHOLOGY/C YTOLOGY Report Path/Cyto PATIENT HISTORY: LMP: No LMP given SPECIMEN SOURCE: A) ThinPrep Vial - Endo/ecto cervical CYTOLOGIC IMPRESSION: Negative for intraepithelial lesions or malignancy SAMPLING ADEQUACY: Endocervical cells / metaplastic cells absent. Sample may not be territory sales representative of the transformation zone. MOLECULAR STUDIES: High Risk HPV Screening Results: NEGATIVE HPV COMMENTS: Note: This HPV test used by the HPV laboratory detects only high risk (i.e. cancer associated), but not low risk (i.e. not associated with cancer) HPVs. While the [employer] methodology is highly sensitive and specific, it does not entirely exclude the possibility of a high risk HPV infection which can be due to the presence of very low levels of viral DNA below the detection level or sampling error. Further, a negative test for high risk HPV does not exclude the possibility of such infection in the future. Please note that both high and low risk HPVs can cause abnormal cytology changes. Methodology: The day(r) 4800 HPV Test consists of two primary steps: an automated extraction of human and viral deoxyribonucleic acids (DNA) and target amplification with real time PCR detection. Amplification primers and fluorescent probes are specific for 14 High Risk HPVs (16, 18, 31, 33, 35, 39, 45, 51, 52, 56, 58, 59, 66 & 68) in the L1 gene region and human beta-globin gene region (used as a process control to ensure sufficient cellular DNA present and/or lack of amplification inhibitors). The day(r) 4800 HPV Test has been approved for cervical samples collected in PreservCyt(r) media by the U.S. Food and Drug Administration. Reference: High-Risk Human Papillomavirus Testing in Women With ASC-US Cytology Results From the NADINE HPV Study: Apollo Braxton MD, Mak Laws Jr, MD, Cordelia West, PhD, Dustin Viramontes, PhD, Nunu Hall, PhD, Oly Laws MD, and the NADINE (Addressing THE Need for Advanced HPV Diagnostics) HPV Study Group. Am J Clin Pathol 2011; 135:468-475 NL Necktie Turner Electronically signed 12/21/2018 Testing Performed At: [facility], [address] [place], [place] [address]th [facility], [place], [address]. HPV test results added on December 24, 2018. The Pap smear is a screening test designed to aid in the detection of the premalignant and malignant conditions of the uterine cervix. It is not a diagnostic procedure and should not be used as the sole means of detecting cervical cancer. Both false-positive and false-negative reports do occur. [facility] PATHOLOGY/C YTOLOGY Cytologic Impression Negative for intraepithelial lesions or malignancy [facility] PATHOLOGY/C YTOLOGY HPV Presence High Risk HPV Screening Results: NEGATIVE [facility] PATHOLOGY/C YTOLOGY 12/19/2018 12/20/2018 us Feliberto Kaplan PA-C LAB CYTOLOGY ORDERABLES E dited Result - Final [facility] PATHOLOGY/CYTOLOGY * Cervical (and Vaginal) Cancer Screening (12/19/2018 12:00 AM PST) Not Reported SAMPLING ADEQUACY: Endocervical cells / metaplastic cells absent. Sample may not be territory sales representative of the transformation zone. CYTOLOGIC IMPRESSION: Negative for intraepithelial lesions or malignancy MOLECULAR STUDIES: High Risk HPV Screening Results: NEGATIVE [facility] PATHOLOGY Case Report PATIENT HISTORY: LMP: No LMP given SPECIMEN SOURCE: A) ThinPrep Vial - Endo/ecto cervical CYTOLOGIC IMPRESSION: Negative for intraepithelial lesions or malignancy SAMPLING ADEQUACY: Endocervical cells / metaplastic cells absent. Sample may not be territory sales representative of the transformation zone. MOLECULAR STUDIES: High Risk HPV Screening Results: NEGATIVE HPV COMMENTS: Note: This HPV test used by the HPV laboratory detects only high risk (i.e. cancer associated), but not low risk (i.e. not associated with cancer) HPVs. While the Jeimy Day methodology is highly sensitive and specific, it does not entirely exclude the possibility of a high risk HPV infection which can be due to the presence of very low levels of viral DNA below the detection level or sampling error. Further, a negative test for high risk HPV does not exclude the possibility of such infection in the future. Please note that both high and low risk HPVs can cause abnormal cytology changes. Methodology: The day(r) 4800 HPV Test consists of two primary steps: an automated extraction of human and viral deoxyribonucleic acids (DNA) and target amplification with real time PCR detection. Amplification primers and fluorescent probes are specific for 14 High Risk HPVs (16, 18, 31, 33, 35, 39, 45, 51, 52, 56, 58, 59, 66 & 68) in the L1 gene region and human beta-globin gene region (used as a process control to ensure sufficient cellular DNA present and/or lack of amplification inhibitors). The day(r) 4800 HPV Test has been approved for cervical samples collected in PreservCyt(r) media by the U.S. Food and Drug Administration. Reference: High-Risk Human Papillomavirus Testing in Women With ASC-US Cytology Results From the NADINE HPV Study: Apollo Braxton MD, Mak Laws Jr, MD, Cordelia West, PhD, Dustin Viramontes, PhD, Nunu Hall, PhD, Oly Laws MD, and the NADINE (Addressing THE Need for Advanced HPV Diagnostics) HPV Study Group. Am J Clin Pathol 2011; 135:468-475 NL Necktie Turner Electronically signed 12/21/2018 Testing Performed At: [facility], [address] [place] [address], [address]. HPV test results added on December 24, 2018. [facility] PATHOLOGY Cytologic Impression Negative for intraepithelial lesions or malignancy [facility] PATHOLOGY LAB AP HISTORIC HPV PRESENCE High Risk HPV Screening Results: NEGATIVE [facility] PATHOLOGY Not Reported Trace Kaplan PA-C (Interface) - [facility] [place] [address] [facility] PATHOLOGY Not Reported Req Data Info - System, automated - (zzzSysAuto) - 12/03/2019 Type of Case: [facility] Accessioned At: 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 [facility] PATHOLOGY TOPOGRAPHY UNKNOWN / Unknown 12/19/2018 12/20/2018 us Feliberto Kaplan PA-C LAB CYTOLOGY ORDERABLES E dited Result - Final [facility] PATHOLOGY [address] [facility] [id number] [place] [address], [facility] [phone] * LIPID PANEL (07/26/2016 4:53 PM PDT) Total Cholesterol 148 <200 mg/dL 017 9:43 PM PDT [facility] Triglyceride 114 <150 mg/dL 07/26/2016 9:43 PM PDT [facility] HDL Cholesterol 40 >39 mg/dL 7 9:43 PM PDT [facility] Cholesterol (LDL) 85 <130 mg/dL 017 9:43 PM PDT [facility] Non-HDL Cholesterol 108 0 - 159 mg/dL 07/26/2016 9:43 PM PDT [facility] Cholesterol/HDL Ratio 3.7 07/26/2016 9:43 PM PDT [facility] Lipid Panel, Additional Info. (NOTE) 07/26/2016 9:43 PM PDT [facility] Comment: For complete information to help interpret the lipid panel, please use the National Cholesterol Education Program (NCEP) guideline based reference range comments found here: http://web.labmed.[facility].edu/tests/chemistry/LIPID Serum specimen (specimen) 07/26/2016 4:53 PM PDT 07/26/2016 9:09 PM PDT us Dalia Washington MD LAB BLOOD ORDERABLES Final R esult [facility] MED #[id number] [address] [place] [address] from Last 3 Months or Most Recently Relevant to Health Maintenance Insurance [place] MEDICAID Member Subscriber Plan / Payer (Ef fective 2011-Present) Name:Kane Montez Member ID:[id number] Relation to Subscriber:Self Name:Kane Montez Subscriber ID:[id number] Payer ID:[id number] Group ID:[id number] Type:Medicaid Address: [address] [address] [facility] MED[facility]ARE [facility] MEDICARE [place] MEDICAID Member Subscriber Plan / Payer (Ef fective 2011-Present) Name:Mak Kane Bobo Member ID:[id number] Relation to Subscriber:Self Name:Kane Montez Subscriber ID:[id number] Payer ID:[id number] Group ID:[id number] Type:Medicaid Address: [address] [address] Member Subscriber Plan / Payer (Ef fective 2011-Present) Name:Mak Kane Bobo Member ID:[id number] Relation to Subscriber:Self Name:Mak Kane Bobo Subscriber ID:[id number] Payer ID:[id number] Group ID:[id number] Type:Medicaid Address: [address] [address] Advance Directives For more information, please contact: [phone] * Full Code (Latest Code Status on File) Date Activated Date Inactivated Comments 11/17/2021 2:29 AM 11/21/2021 7:54 PM * Full Code Date Activated Date Inactivated Comments 09/14/2021 10:12 PM 09/17/2021 6:36 PM * Full Code Date Activated Date Inactivated Comments 02/06/2021 8:48 PM 02/15/2021 6:46 PM Healthcare Agents on File Name Relationship Healthcare Agent Relationship Communication Uma Beckford Sister Health Care Agent Care Teams Director Of Primary Relationship Specialty Start Date End Date Mary Wren MD PCP - General Internal Medicine 09/17/21 Mahesh Lee MD Internal Medicine 11/13/13 Anne Miranda, plate setter Medical Oncology 06/17/14 Lucy Serrano, plate setter Medical Oncology 06/17/14 Edy Gordon, WHIT Infusion Unknown Physician Specialty 06/17/14 González Arriaga MD Pulmonary Disease 08/21/19 González Arriaga MD Attending Pulmonary Disease 02/19/20
--- NOTE | 2025-02-01 13:33 | ED.SOB ---
HPI - SOB/Dyspnea General Chief Complaint: Shortness of Breath/Dyspnea Stated Complaint: Upper Respiratory, SOB, on O2 Pulm Hypertension Time Seen by Provider: 02/01/25 13:26 History of Present Illness HPI Narrative: 54-year-old female history of COPD on 4-1/2 L at bedtime only presents with 7 days of increasing shortness breath cough fever chills body aches and low O2. She is not fully vaccinated. Denies any active chest pain, nausea, vomiting, back pain, sick contacts, diaphoresis, leg pain, leg swelling. Other than what is stated 14 point review of system is negative. Related Data Home Medications ?Medication ?Instructions ?Recorded ?Confirmed albuterol sulfate 90 mcg/actuation 90 mcg inhalation BID 02/06/21 02/06/21 aerosol inhaler ambrisentan 10 mg tablet 10 mg PO DAILY 02/06/21 02/06/21 budesonide-formoterol HFA 160 1 puff inhalation BID 02/06/21 02/06/21 mcg-4.5 mcg/actuation aerosol inhaler (Symbicort) bupropion HCl 150 mg 24 hr tablet, 150 mg PO DAILY 02/06/21 02/06/21 extended release fluoxetine 60 mg tablet 60 mg PO DAILY 02/06/21 02/06/21 furosemide 40 mg tablet 40 mg PO DAILY 02/06/21 02/06/21 levothyroxine 125 mcg tablet 125 mcg PO BID 02/06/21 02/06/21 potassium chloride 10 mEq 10 meq PO DAILY 02/06/21 02/06/21 tablet,extended release selexipag 800 mcg tablet (Uptravi) 800 mcg PO DAILY pulmonary 02/06/21 02/06/21 hypertension spironolactone 50 mg tablet 50 mg PO DAILY 02/06/21 02/06/21 tadalafil (pulm. hypertension) 20 20 mg PO DAILY 02/06/21 02/06/21 mg tablet (pulmonary hypertension) Previous Rx's ?Medication ?Instructions ?Recorded levofloxacin 250 mg tablet 750 mg (3 x 250 mg) PO 0700 #5 tabs 02/04/22 prednisone 20 mg tablet 40 mg (2 x 20 mg) PO DAILY #10 tabs 02/04/22 prednisone 5 mg tablets in a dose See Rx Instructions PO .COMPLEX 02/01/23 pack #21 ea triamcinolone acetonide 0.025 % 1 applic topical TID #454 grams 02/01/23 topical ointment Allergies Allergy/AdvReac Type Severity Reaction Status Date / Time doxycycline Allergy Rash Verified 02/01/23 17:58 Penicillins AdvReac Verified 02/06/21 09:27 Review of Systems Review of Systems ROS Unobtainable: All systems reviewed & are unremarkable except as noted in HPI and below Patient History Medical History Sleep apnea Morbid obesity Congestive heart failure Pulmonary hypertension Social History Smoking Status: Current some day smoker tobacco type: cigarettes alcohol intake frequency: a few times a week Alcohol type: hard liquor Exam Narrative Exam Narrative: GENERAL: [54 year old patient appears stated age. Well-developed patient, in mild distress. HEAD: Atraumatic. Normocephalic. EYES: Pupils equal round and reactive. Extraocular motions intact. No scleral icterus. No injection or drainage. ENT: Nose without bleeding, purulent drainage. Throat without erythema, tonsillar hypertrophy or exudate. Airway patent. NECK: Trachea midline. Non tender CARDIOVASCULAR: Regular rate and rhythm without murmurs, gallops, or rubs. RESPIRATORY: Dec b/s b/l with wheeze througout. GASTROINTESTINAL: Abdomen soft, non-tender, nondistended. EXTREMITIES: No edema or joint tenderness. BACK: Nontender without deformity or crepitance. No flank tenderness. NEURO: AOx3. SKIN: No rash or erythema of visible areas Initial Vital Signs Initial Vital Signs: Vital Signs Temperature 98.6 F 02/01/25 13:25 Pulse Rate 85 02/01/25 13:25 Respiratory Rate 27 H 02/01/25 13:25 Blood Pressure 125/78 02/01/25 13:25 Pulse Oximetry 85 L 02/01/25 13:25 Oxygen Delivery Method Room Air 02/01/25 13:25 Course Orders Ordered: ED Orders 02/01/25 13:34 Complete Blood Count AUTO DIFF Stat Comprehensive Metabolic Panel Stat Lactate (Lactic Acid) Stat Lipase Stat Magnesium Stat NT-proBNP (BNP-Adult 18+) Stat Respiratory Panel (Film Array) Stat Troponin I Stat 02/01/25 13:35 XR chest 1V Stat EKG-12 Lead Stat 02/01/25 13:36 CT angio chest PE protocol Stat Venous Blood Gas STAT 02/01/25 13:41 Venous Blood Gas Routine 02/01/25 13:50 Blood Culture Stat Discontinued Medications Albuterol/Ipratropium (Albuterol/Ipratropium 3 Ml Ampul) 3 ml INH NOW ONE Stop: 02/01/25 13:36 Last Admin: 02/01/25 13:47 Dose: 3 ml Documented By: ARIANA Albuterol/Ipratropium (Albuterol/Ipratropium 3 Ml Ampul) 3 ml INH NOW ONE Stop: 02/01/25 13:36 Last Admin: 02/01/25 13:47 Dose: 3 ml Documented By: ARIANA Methylprednisolone (Methylprednisolone Succ 125 Mg/2 Ml Vial) 125 mg IV NOW ONE Stop: 02/01/25 13:36 Last Admin: 02/01/25 13:41 Dose: 125 mg Documented By: MORTEZA Vital Signs Vital signs: Vital Signs - 8 hr 02/01/25 13:25 02/01/25 13:32 02/01/25 13:48 Temperature 98.6 F Pulse Rate 85 86 88 Respiratory Rate 27 H 30 H 26 H Blood Pressure 125/78 126/79 Pulse Oximetry 85 L 92 91 Oxygen Delivery Method Room Air Nasal Cannula Nasal Cannula Oxygen Flow Rate 6 6 Fraction of Inspired Oxygen 44 MDM - SOB/Dyspnea Lab Data 02/01/25 13:34 02/01/25 13:34 Labs: Lab Results 02/01/25 02/01/25 Range/Units 13:34 13:41 WBC 3.5 L (4.5-11.0) X10^3/uL RBC 4.08 (4.0-5.2) X10^6/uL Hgb 12.8 (12.0-16.0) g/dL Hct 37.8 (36-46) % MCV 92.8 (80-100) fL MCH 31.5 (26-34) PG MCHC 34.0 (30-36) % RDW 15.3 H (11.6-14.8) % Plt Count 126 L (150-400) X10^3/uL Neut % (Auto) 69.2 (50-75) % Lymph % (Auto) 19.7 L (25-40) % Knott % (Auto) 9.1 (3-14) % Eos % (Auto) 1.5 L (2-4) % Baso % (Auto) 0.5 (0-2) % Neut # (Auto) 2500 (5617-9210) /uL Lymph # (Auto) 700 L (7915-7636) /uL Knott # (Auto) 300 (0-900) /uL Eos # (Auto) 100 (0-450) /uL Baso # (Auto) 0 (0-100) /uL VBG pH 7.32 L (7.33-7.43) VBG pCO2 36.7 L (45-50) mmHg VBG pO2 38 (35-45) mmHg VBG HCO3 19 L (24-28) mmol/L VBG Total CO2 18 L (24-29) mmol/L VBG O2 Saturation 68 L (70-75) % VBG Base Excess -6.4 L (0-4) mmol/L Sodium 133 L (137-145) mmol/L Potassium 3.3 L (3.4-5.1) mmol/L Chloride 104 (98-107) mmol/L Carbon Dioxide 17 L (22-32) mmol/L BUN 18 H (7-17) mg/dL Creatinine 1.04 (0.52-1.04) mg/dL Estimated GFR > 60 (>60) mL/min BUN/Creatinine Ratio 17.3 (6-22) Glucose 101 H (70-99) mg/dL Lactate 1.3 (0.7-2.1) mmol/L Calcium 8.9 (8.4-10.2) mg/dL Magnesium 1.6 (1.6-2.3) mg/dL Total Bilirubin 0.6 (0.2-1.3) mg/dL AST 28 (14-36) IU/L ALT 16 (<35) IU/L Alkaline Phosphatase 112 (38-126) U/L Troponin I < 0.012 (0.01-0.034) ng/mL NT-Pro-B Natriuret Pep 576 H (<125) pg/mL Total Protein 8.2 (6.3-8.2) g/dL Albumin 4.1 (3.5-5.0) g/dL Globulin 4.1 (1.7-4.1) g/dL Albumin/Globulin Ratio 1.0 (1.0-2.8) Lipase 115 (23-300) U/L Chlamy pneumoniae PCR Not detected (Not Detect) Adenovirus (PCR) Not detected (Not Detect) B. pertussis DNA (PCR) Not detected (Not Detect) B.parapertussis DNA PCR Not detected (Not Detecte) Coronavirus OC43 (PCR) Not detected (Not Detect) Coronavirus HKU1 (PCR) Not detected (Not Detect) Coronavirus 229E (PCR) Not detected (Not Detect) SARS-CoV-2 (PCR) Not detected (Not Detecte) Coronavirus NL63 (PCR) Not detected (Not Detect) Human Metapneumovir PCR Not detected (Not Detect) Influenza Type A (PCR) Not detected (Not Detect) Influenza Type B (PCR) Not detected (Not Detect) M. pneumoniae (PCR) Not detected (Not Detect) Parainfluenza 1 (PCR) Not detected (Not Detect) Parainfluenza 2 (PCR) Not detected (Not Detect) Parainfluenza 3 (PCR) Not detected (Not Detect) Parainfluenza 4 (PCR) Not detected (Not Detect) RSV (PCR) Not detected (Not Detect) Entero/Rhino (PCR) Not detected (Not Detect) Imaging Data CT scan - chest: Radiologist's Impression: [place] [address] CT Scan Report Signed Patient: Omaira Corado MR#: [id number] : 1970 Acct:[id number] Age/Sex: 54 / F Date of Service: 02/01/25 Loc: ED Accession Number: [id number] Procedure: CT angio chest PE protocol Ordering Provider: Jose Ascencio D.O. PROCEDURE: CT ANGIO CHEST PE PROTOCOL INDICATIONS: sob low 02 TECHNIQUE: After the administration of intravenous contrast, 2 mm thick sections acquired from the pulmonary apices to the posterior costophrenic angles. 3-dimensional maximum intensity projection (MIP) coronal and sagittal reformats were then acquired through the thorax. For radiation dose reduction, the following was used: automated exposure control, adjustment of mA and/or kV according to patient size. COMPARISON: [facility], CT, CT ANGIO CHEST PE PROTOCOL, 02/03/2022, 15:48. FINDINGS: Image quality: Diagnostic. Pulmonary arteries: The main pulmonary artery measuring 4.2 cm in caliber. No intraluminal filling defects to suggest central pulmonary embolism. Lower Neck: No enlarged lymph nodes. Thyroid: No thyroid nodules which require sonographic follow up, per consensus guidelines. Axillae: No enlarged lymph nodes. Chest Wall: Unremarkable. Bones: Unremarkable. Lungs and Pleura: No pneumothorax or pleural effusions. Patchy areas of consolidation in the left upper lobe. Stable right upper lobe 5 mm solid nodule (5/79, MIP image 40). Mildly increased size of irregular medial right upper lobe 8 mm nodule (5/122, MIP image 62), previously measuring 6 mm on 02/03/2022. Subsegmental atelectasis. Heart: Heart size is enlarged, as before. No pericardial effusion. Thoracic Vessels: No aortic aneurysm. Mediastinum and Carole: No enlarged lymph nodes. Esophagus: No wall thickening. No hiatal hernia. Upper Abdomen: Visualized upper abdomen solid organs and bowel loops appear normal. IMPRESSION: No pulmonary embolus. Left upper lobe consolidation concerning for pneumonia. Dilated main pulmonary artery which can be seen in the setting of pulmonary hypertension. Mildly increased size of irregular right upper lobe 8 mm nodule since 2021. Recommend follow-up CT chest in 6 months to demonstrate stability. Approved by: Vangie Wren M.D.,Ph.D. on 02/01/2025 at 14:45 ECG Data Interpretation: NSR HR 81 IRBBB VT 192 QRS 98 QT 410 No previous EKG to compare MDM Narrative Medical decision making narrative: All labwork, vital signs, nurse triage note, medication list, previous ER visits, and all imaging studies reviewed. CT showed no PE left upper lobe consolidation concerning for pneumonia. Dilated main pulmonary artery seen in the setting of pulmonary hypertension. Patient given 2 DuoNeb Solu-Medrol 125 Rocephin 2 g azithromycin 500 mg IV. Case discussed with Dr. Thacker [facility] [place] hospitalist who has graciously accepted the patient for inpatient admission. Differential diagnosis sepsis pneumonia UTI COVID flu RSV COPD exacerbation Discharge Plan Departure Patient Disposition: Admitted As Inpatient Clinical Impression: Pneumonia Admit Date/Time: 02/01/25 15:37 Admit Provider: Freeman Arana
--- NOTE | 2025-02-01 13:35 | EKG_ITS ---
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
--- NOTE | 2025-02-01 13:35 | DI.RAD.S_ITS ---
PROCEDURE: XR CHEST 1V INDICATIONS: sob TECHNIQUE: One view of the chest was acquired. COMPARISON: [facility], , XR CHEST 1V, 02/03/2022, 15:18. FINDINGS: Surgical changes and devices: None. Lungs and pleura: Lung volumes are mildly low. Increased interstitial markings favored to the mild pulmonary edema. No focal dense airspace consolidation. No pleural effusions or pneumothorax. Mediastinum: Mediastinal contours appear normal. Heart size is normal. Bones and chest wall: No suspicious bony lesions. Overlying soft tissues appear unremarkable. IMPRESSION: Mild pulmonary edema. No focal dense airspace consolidation. Approved by: Vangie Wren M.D.,Ph.D. on 02/01/2025 at 14:59
--- NOTE | 2025-02-01 13:36 | DI.CT.S_ITS ---
PROCEDURE: CT ANGIO CHEST PE PROTOCOL INDICATIONS: sob low 02 TECHNIQUE: After the administration of intravenous contrast, 2 mm thick sections acquired from the pulmonary apices to the posterior costophrenic angles. 3-dimensional maximum intensity projection (MIP) coronal and sagittal reformats were then acquired through the thorax. For radiation dose reduction, the following was used: automated exposure control, adjustment of mA and/or kV according to patient size. COMPARISON: [facility], CT, CT ANGIO CHEST PE PROTOCOL, 02/03/2022, 15:48. FINDINGS: Image quality: Diagnostic. Pulmonary arteries: The main pulmonary artery measuring 4.2 cm in caliber. No intraluminal filling defects to suggest central pulmonary embolism. Lower Neck: No enlarged lymph nodes. Thyroid: No thyroid nodules which require sonographic follow up, per consensus guidelines. Axillae: No enlarged lymph nodes. Chest Wall: Unremarkable. Bones: Unremarkable. Lungs and Pleura: No pneumothorax or pleural effusions. Patchy areas of consolidation in the left upper lobe. Stable right upper lobe 5 mm solid nodule (5/79, MIP image 40). Mildly increased size of irregular medial right upper lobe 8 mm nodule (5/122, MIP image 62), previously measuring 6 mm on 02/03/2022. Subsegmental atelectasis. Heart: Heart size is enlarged, as before. No pericardial effusion. Thoracic Vessels: No aortic aneurysm. Mediastinum and Carole: No enlarged lymph nodes. Esophagus: No wall thickening. No hiatal hernia. Upper Abdomen: Visualized upper abdomen solid organs and bowel loops appear normal. IMPRESSION: No pulmonary embolus. Left upper lobe consolidation concerning for pneumonia. Dilated main pulmonary artery which can be seen in the setting of pulmonary hypertension. Mildly increased size of irregular right upper lobe 8 mm nodule since 2021. Recommend follow-up CT chest in 6 months to demonstrate stability. Approved by: Vangie Wren M.D.,Ph.D. on 02/01/2025 at 14:45
[2025-02-01] MEDS: methylPREDNISolone succ 125 MG/2 ML VIAL IV (13:41)
[2025-02-01 13:44] LABS: Base Excess VBG -6.4 mmol/L (0-4); HCO3 VBG 19 mmol/L (24-28); Oxygen Saturation VBG 68 % (70-75); PCO2 VBG 36.7 mmHg (45-50); PO2 VBG 38 mmHg (35-45); Total CO2 VBG 18 mmol/L (24-29); pH VBG 7.32 (7.33-7.43)
[2025-02-01] MEDS: ALBUTEROL/IPRATROPIUM 3 ML AMPUL INH ×2 (13:47)
[2025-02-01 13:59] LABS: Lactate (Lactic Acid) 1.3 mmol/L (0.7-2.1)
[2025-02-01 14:00] LABS: Alanine Aminotransferase 16 IU/L (<35); Albumin 4.1 g/dL (3.5-5.0); Albumin Globulin Ratio 1.0 (1.0-2.8); Alkaline Phosphatase 112 U/L (38-126); Blood Urea Nitrogen 18 mg/dL (7-17); Calcium 8.9 mg/dL (8.4-10.2); Carbon Dioxide 17 mmol/L (22-32); Chloride 104 mmol/L (98-107); Estimated Glomerular Filt Rate > 60 mL/min (>60); Globulin 4.1 g/dL (1.7-4.1); Glucose 101 mg/dL (70-99); HEMOLYSIS < 15 (0-50); Lipase 115 U/L (23-300); Magnesium 1.6 mg/dL (1.6-2.3); Potassium 3.3 mmol/L (3.4-5.1); Sodium 133 mmol/L (137-145); Total Protein 8.2 g/dL (6.3-8.2)
[2025-02-01 14:01] LABS: Add Manual Diff / Slide Review NO; Hematocrit 37.8 % (36-46); Hemoglobin 12.8 g/dL (12.0-16.0); Lymphocytes Absolute Auto 700 /uL (1100-4500); Mean Corpuscular HGB Conc 34.0 % (30-36); Mean Corpuscular Hemoglobin 31.5 PG (26-34); Mean Corpuscular Volume 92.8 fL (80-100); Platelet Count 126 X10^3/uL (150-400)
[2025-02-01 14:11] LABS: NT-proBNP (BNP-Adult 18+) 576 pg/mL (<125); Troponin I < 0.012 ng/mL (0.01-0.034)
[2025-02-01 14:33] LABS: Coronavirus NL 63 Not Detected (Not Detect); SARS- CoV-2 Not Detected (Not Detecte)
[2025-02-01] MEDS: cefTRIAXone 2,000 MG in SODIUM CHLORIDE 0.9% 100 ML 200 MG IV (15:23)
[2025-02-01] MEDS: AZITHROMYCIN 500 MG in DEXTROSE 5% IN WATER 250 ML 250 MG IV (16:10)
--- NOTE | 2025-02-01 16:19 | PM.HP.1 ---
History of Present Illness History of Present Illness Date Patient Seen: 02/01/25 Time Patient Seen: 16:19 Chief complaint: Upper Respiratory, SOB, on O2 Pulm Hypertension Narrative: Chief complaint: Progressive shortness of breath and increasing oxygen man in a oxygen-dependent patient with COPD and pneumonia History of present illness: 54-year-old female on 4 L of oxygen nasal cannula at baseline has been having nonproductive cough increasing shortness for breath at rest fever or chills and body aches and oxygen saturations below 90 at home. She has a history of pulmonary hypertension on prostaglandin Clinical Veterinarian is a Dr. Quick at [facility]. Findings in the emergency department significant for mild leukopenia white count 3.5 right upper lobe infiltrate on CT angio otherwise metabolic and hemogram on remarkable moderate elevation of BNP likely secondary to chronic cor pulmonale CT angio: No pulmonary embolus. Left upper lobe consolidation concerning for pneumonia. Dilated main pulmonary artery which can be seen in the setting of pulmonary hypertension. Mildly increased size of irregular right upper lobe 8 mm nodule since 2021. Recommend follow-up CT chest in 6 months to demonstrate stability. Review of systems: No chest pains palpitations No nausea vomiting diarrhea No paresthesia no paresis No urinary symptoms Physical examination: Ill-appearing middle-aged female HEENT unremarkable Heart rate and rhythm regular Lungs very shortened respiratory phases with markedly diminished respiratory vesicular breath sounds Abdomen nontender Extremities 1+ pedal edema Assessment and plan: Community-acquired pneumonia in setting of COPD with exacerbation and acute on chronic hypoxic respiratory failure with increased oxygen requirement and pulmonary hypertension Antibiotics and bronchodilators Supportive care Moderate dose corticosteroid therapy Current medical conditions: Pulmonary hypertension Obstructive sleep apnea DVT prophylaxis: Not indicated patient is ambulatory and has had bleeding complications in the past Code status: Full code blue Disposition: Observation convert to full admission if requires lung with a 24 hours Time based billin minutes were involved evaluation of this patient including [id number] evaluation discussion with daughter review of previous records review of objective laboratory and imaging findings including direct visualization of imaging discussion with other care providers [facility] Medical History Sleep apnea Morbid obesity Congestive heart failure Pulmonary hypertension Social History Smoking Status: Current some day smoker Meds Home Medications and Allergies Home Medications ?Medication ?Instructions ?Recorded ?Confirmed ?Type albuterol sulfate 90 mcg/actuation 90 mcg inhalation BID 02/06/21 02/06/21 History aerosol inhaler ambrisentan 10 mg tablet 10 mg PO DAILY 02/06/21 02/06/21 History budesonide-formoterol HFA 160 1 puff inhalation BID 02/06/21 02/06/21 History mcg-4.5 mcg/actuation aerosol inhaler (Symbicort) bupropion HCl 150 mg 24 hr tablet, 150 mg PO DAILY 02/06/21 02/06/21 History extended release fluoxetine 60 mg tablet 60 mg PO DAILY 02/06/21 02/06/21 History furosemide 40 mg tablet 40 mg PO DAILY 02/06/21 02/06/21 History levothyroxine 125 mcg tablet 125 mcg PO BID 02/06/21 02/06/21 History potassium chloride 10 mEq 10 meq PO DAILY 02/06/21 02/06/21 History tablet,extended release selexipag 800 mcg tablet (Uptravi) 800 mcg PO DAILY pulmonary 02/06/21 02/06/21 History hypertension spironolactone 50 mg tablet 50 mg PO DAILY 02/06/21 02/06/21 History tadalafil (pulm. hypertension) 20 20 mg PO DAILY 02/06/21 02/06/21 History mg tablet (pulmonary hypertension) levofloxacin 250 mg tablet 750 mg (3 x 250 mg) PO 0700 #5 tabs 02/04/22 Rx prednisone 20 mg tablet 40 mg (2 x 20 mg) PO DAILY #10 tabs 02/04/22 Rx prednisone 5 mg tablets in a dose See Rx Instructions PO .COMPLEX 02/01/23 Rx pack #21 ea triamcinolone acetonide 0.025 % 1 applic topical TID #454 grams 02/01/23 Rx topical ointment Allergies Allergy/AdvReac Type Severity Reaction Status Date / Time doxycycline Allergy Rash Verified 02/01/23 17:58 Penicillins AdvReac Verified 02/06/21 09:27 Exam Vital Signs (past 8 hours): - 02/01/25 13:25 02/01/25 13:32 02/01/25 13:48 Temperature 98.6 F Pulse Rate 85 86 88 Respiratory Rate 27 H 30 H 26 H Blood Pressure 125/78 126/79 Pulse Oximetry 85 L 92 91 Oxygen Delivery Method Room Air Nasal Cannula Nasal Cannula Oxygen Flow Rate 6 6 Fraction of Inspired Oxygen 44 Fraction of Inspired Oxygen 44 SaO2/FiO2 Ratio 213 Oxygen Delivery Method Nasal Cannula Oxygen Flow Rate 6 Objective Labs 02/01/25 13:34 02/01/25 13:34 Labs: Laboratory Results - last 24 hr 02/01/25 02/01/25 13:34 13:41 WBC 3.5 L RBC 4.08 Hgb 12.8 Hct 37.8 MCV 92.8 MCH 31.5 MCHC 34.0 RDW 15.3 H Plt Count 126 L Neut % (Auto) 69.2 Lymph % (Auto) 19.7 L Petroleum % (Auto) 9.1 Eos % (Auto) 1.5 L Baso % (Auto) 0.5 Neut # (Auto) 2500 Lymph # (Auto) 700 L Petroleum # (Auto) 300 Eos # (Auto) 100 Baso # (Auto) 0 VBG pH 7.32 L VBG pCO2 36.7 L VBG pO2 38 VBG HCO3 19 L VBG Total CO2 18 L VBG O2 Saturation 68 L VBG Base Excess -6.4 L Sodium 133 L Potassium 3.3 L Chloride 104 Carbon Dioxide 17 L BUN 18 H Creatinine 1.04 Estimated GFR > 60 BUN/Creatinine Ratio 17.3 Glucose 101 H Lactate 1.3 Calcium 8.9 Magnesium 1.6 Total Bilirubin 0.6 AST 28 ALT 16 Alkaline Phosphatase 112 Troponin I < 0.012 NT-Pro-B Natriuret Pep 576 H Total Protein 8.2 Albumin 4.1 Globulin 4.1 Albumin/Globulin Ratio 1.0 Lipase 115 Chlamy pneumoniae PCR Not detected Adenovirus (PCR) Not detected B. pertussis DNA (PCR) Not detected B.parapertussis DNA PCR Not detected Coronavirus OC43 (PCR) Not detected Coronavirus HKU1 (PCR) Not detected Coronavirus 229E (PCR) Not detected SARS-CoV-2 (PCR) Not detected Coronavirus NL63 (PCR) Not detected Human Metapneumovir PCR Not detected Influenza Type A (PCR) Not detected Influenza Type B (PCR) Not detected M. pneumoniae (PCR) Not detected Parainfluenza 1 (PCR) Not detected Parainfluenza 2 (PCR) Not detected Parainfluenza 3 (PCR) Not detected Parainfluenza 4 (PCR) Not detected RSV (PCR) Not detected Entero/Rhino (PCR) Not detected Assessment & Plan Time-Based Coding :: [TOTAL MINUTES] spent with patient and on the chart (including review of chart, obtaining history, exam, reviewing outside data, placing orders, documenting exam and treatment plan, and counseling patient) on [DATE].
--- NOTE | 2025-02-01 18:10 | PC.NURSE ---
Pt arrived from ED at 1645, able to transfer from stretcher to bed with minimal assistance. A&Ox4, VSS on 7L oximask. Lung sounds CTA, cough present, pain with coughing. Bowel sounds present, CMS+ bilaterally. Pt oriented to room and call light. Bed in low position, call light within reach, bed alarm activated.
[2025-02-01] MEDS: methylPREDNISolone succ 125 MG/2 ML VIAL 80 MG IV (20:19)
[2025-02-01] MEDS: LEVOTHYROXINE 125 MCG TABLET PO (20:20)
[2025-02-01] MEDS: MELATONIN 3 MG TABLET 6 MG PO (23:33)
[2025-02-01] MEDS: ACETAMINOPHEN 325 MG TABLET 650 MG PO (23:35)
[2025-02-02] VITALS (12 sets, daily range): BP systolic 107–119; BP diastolic 62–71; PULSE 82–96; RESP 18–28; TEMP 36–36.3; O2SAT 86–95
[2025-02-02] MEDS: methylPREDNISolone succ 125 MG/2 ML VIAL 80 MG IV ×3 (05:27→21:43)
[2025-02-02] MEDS: SPIRONOLACTONE 25 MG TABLET 50 MG PO (09:26)
[2025-02-02] MEDS: POTASSIUM CHLORIDE 20 MEQ TAB 60 MEQ PO (09:26)
[2025-02-02] MEDS: LEVOTHYROXINE 100 MCG TABLET 200 MCG PO (09:26)
[2025-02-02] MEDS: POTASSIUM CHLORIDE 10 MEQ TAB PO (09:26)
[2025-02-02] MEDS: FUROSEMIDE 40 MG TABLET PO (09:27)
[2025-02-02] MEDS: BUDESONIDE 0.5 MG/2 ML NEB INH ×2 (10:26→19:34)
[2025-02-02] MEDS: ALBUTEROL 2.5 MG/3 ML NEB (ADULT) INH ×4 (10:26→23:19)
--- NOTE | 2025-02-02 11:46 | PC.NURSE ---
Pt up independently in room, on 7L O2 via mask. Appears visibly short of breath. Pt is somewhat anxious. Vitals stable. Will continue to monitor.
--- NOTE | 2025-02-02 15:31 | CM.DANOTE ---
Patient is a 54 yo female who was admitted INPT Status on 02/01/25 for PNA/COPD. Pt has [employer] [facility] AD[facility] and JF for insurance and her PCP is Manolo Olmos. EMR was reviewed. Per MD, pt with hx of COPD and 4L Home O2 at baseline and admitted for Pneumonia, COPD exac and on 7L Oximask and hypertension. MD anticipates another 2-3 days before stable for discharge. Per ASSURANCE AUDITOR, pt has been ambulating independently in room. SW met bedside with pt and adult Dtr Jihan and they confirm they live together at home in [place] and pt is mostly independent with ADLs and gets her O2 through [facility] and doesn't always need oxygen during the day but uses it for her home CPAP at night. Pt does not drive and Dtr assists and pt does not use DME for ambulation at baseline. Pt denies any hx of HH or SNF and has been admitted to multiple hospitals for her respiratory issues over the past few years. Pt and Dtr preference is home when stable and they do not anticipate any needs at d/c. Dtr will provide transport home. Plan: SW to follow closely for plan of home with Dtr when weaned back to home O2. ERLINDA Michelle Discharge Planning/Care Management CM Discharge Assessment Start: 02/01/25 16:22 Freq: Status: Active Protocol: Document 02/02/25 15:30 BF (Rec: 02/02/25 15:31 BF [id number]) Discharge Planning Assessment Assigned Discharge ERLINDA Palma Mobile Application Engineer Provider Manolo Olmos Insurance [facility] DPOA/Assigned Dtr Jihan Designee Name Contact Information [phone] Advance Directives? No Advance Directives No on File History Provided By Patient,Family Member,Medical Record Has Patient been No admitted in last 30 days? Prior Living House Arrangements Household Members family Comment Pt and Dtr live together Type of Relies on Others transporation used prior to admit Independent with ADL Yes 's Is patient alert and Yes oriented? Caregiver for No Another Community Services Oxygen Therapy used prior to admission: Comment Home O2 through [facility] DME Already Rented / Oxygen Owned Barriers to No Discharge Discharge Plan Home Transportation Dtr to transport Arrangement Referrals Initiated None needed Whiteboard Updated Yes in Patient Room with name and ext. # of Outside Machinist Supervisor Review Status In Process Please Provide Date 02/02/25 Initial DC Assessment Was Performed Next Review Type Continued Stay Review
[2025-02-02] MEDS: AZITHROMYCIN 500 MG in DEXTROSE 5% IN WATER 250 ML 250 MG IV (15:45)
[2025-02-02] MEDS: guaiFENesin Solution 100 MG/5 ML UDC 200 MG PO (21:43)
[2025-02-02] MEDS: MELATONIN 3 MG TABLET 6 MG PO (21:44)
[2025-02-02] MEDS: LEVOTHYROXINE 125 MCG TABLET PO (21:44)
[2025-02-03] MEDS: methylPREDNISolone succ 125 MG/2 ML VIAL 80 MG IV ×3 (05:15→21:33)
--- OUTSIDE RECORDS SUMMARY | 2025-02-03 08:24 | XMS_ITS | Clinical Summary ---
Author Organization [facility] gt Address [address] [place] [address] Care Team Providers Care Dimension Quarry Supervisor Name Role Phone Mahesh Lee MD Unavailable Unavailable Anne Miranda RN Unavailable Unavailable Lucy Serrano RN Unavailable Edy Emanuel RN Unavailable [phone] González Arriaga MD Unavailable Unavailable González Arriaga [...] allergic rhinitis due to other allergic trigger [place] 2 sprays into each nostril 2 times [...] (11/29/2021): Added automatically from request for surgery [id number] Acute pulmonary embolism 02/11/2021 Moderate persistent asthma [...] cholecystitis 10/17/2014 Overview (10/14/2015): Overview: 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 Primary pulmonary hypertension 07/04/2012 Resolved Problems [...] Patient E-mail Medicine Pulmonary Vascular Disease [address] [place] [address] Belgica Mcclellan, RN Uptravi 12/18/2024 Documentation Medicine Pulmonary Vascular Disease [address] [place] [address] Belgica Mcclellan, RN Pulmonary Arterial Hypertension (Medication dose clarification) 12/17/2024 Refill Medicine Pulmonary Vascular Disease [address] [place] [address] Ricardo Quick MD Refill Request 11/27/2024 Documentation [facility] Sleep Medicine at [address], [address] [place] [phone] Esmer Thomas, Coordinator Sleep Apnea 11/19/2024 Documentation [facility] Sleep Medicine at [address], [address] [place] [phone] Esmer Thomas, Coordinator Sleep Apnea 11/19/2024 Orders Only [facility] Sleep Medicine at [facility] [address], [address]th [place] [address] Christiano Pardo MD MAIET on CPAP (Primary Dx) from Last 3 Months Immunizations Immunization Administration [...] PM PST Appointment Medicine Echo Lab at [facility] [address] [facility], [address] [place] [address] 03/11/2025 4:00 PM PST Office Visit Medicine Pulmonary Vascular Disease [address] [place] [id number] Ricardo Quick MD [address] [place] [address] Health Maintenance Due Date Last Done Comments [...] 11/24/2015 Pap 12/20/2023 12/19/2018, 11/24/2015 COVID-19 Vaccine ( season) 2024 Influenza Vaccine (#1) 2024 9, [...] Date/Time Associated Diagnosis Comments PREMANAGE Routine 02/01/2025 6:49 PM PST PREMANAGE Routine 02/01/2025 3:38 PM PST COMPREHENSIVE METABOLIC PANEL Routine 07/30/2024 10:56 AM PDT PAH (pulmonary artery hypertension) (HCC) COLONOSCOPY Routine 11/19/2021 1:33 PM PDT Gastrointestinal hemorrhage, unspecified gastrointestinal hemorrhage type HIV ANTIGEN AND ANTIBODY SCRN Routine 09/15/2021 9:22 AM PDT CTA CHEST PE W CONTRAST Routine 09/11/2021 7:10 PM PDT OCCULT BLOOD BY IA, STL Remote Lab 12/24/2018 3:51 PM PST Screening for colorectal cancer HPV ONLY (NON-IMPORTER EXPORTER) Routine 12/19/2018 12 :00 AM PST CERVICAL CANCER SCREENING Routine 12/19/2018 12:00 AM PST Screening for cervical cancer LIPID PANEL Routine 07/26/2016 4:53 PM PDT Screening for hyperlipidemia from Last 3 Months or Most Recently Relevant to Health Maintenance Results * PREMANAGE (02/01/2025 6:49 PM PST) Only the most recent of2 resultswithin the time period is included. 02/01/2025 6:49 PM PST Narrative [facility] - 02/01/2025 6:40 PM PST Patient has visited an external emergency department or has been hospitalized outside of Medicine --MOST RECENT VISIT-- IP Admit:02/01/25 15:37 IP Discharge:02/01/25 16:49 Location:[facility] Attending Provider:Herbie Encounter Type:Observation Major Class:Inpatient Chief Complaint:Upper Respiratory, SOB, on O2 Pulm Hypertension Diagnosis: ED/[facility] VISIT TRACKING (3 MO.) Visit Date Location [facility] Type Dx/Complaint -------- ------- ---- 02/01/2025 13:24 [facility] Emergency Upper Respiratory, SOB, on O2 Pulm Hypertension INPATIENT VISIT TRACKING (1 MO.) Visit Date Location [facility] Dx/Complaint -------- ------- ---- 02/01/2025 15:37 [facility] Observation Upper Respiratory, SOB, on O2 Pulm Hypertension ED VISIT COUNT (12 MO.) Visits Location ------ --------- [address] [address] Total Note: Visits indicate total known visits. --CARE GUIDELINES-- (Below are the most recent care guidelines entered by a Medicine care provider in [facility]. If Medicine guidelines do not exist in [facility], the most recent care guideline entered by an external hospital care provider is displayed.) [facility] has no Care Guidelines for this patient. Security Events No recent Security Events currently on file --CARE PROVIDERS-- CARE PROVIDERS Name Phone Type Service Dates ---- ----- ---- KIARRA DE OLIVEIRA [phone] Family Medicine Unknown - Current Procedure Note EXTERNAL ATTENDING PHYSICIAN - 02/01/2025 Patient has visited an external emergency department or has beenhospitalized outside of [facility] --MOST RECENT VISIT-- IP Admit:02/01/25 15:37 IP Discharge:02/01/25 16:49 Location:[facility] Attending Provider:Herbie Encounter Type:Observation Major Class:Inpatient Chief Complaint:Upper Respiratory, SOB, on O2 Pulm Hypertension Diagnosis: ED/[facility] VISIT TRACKING (3 MO.) Visit Date Location [facility] TypeDx/Complaint -------- ------- 02/01/2025 13:24 [facility] Emergency UpperRespiratory, SOB, on O2 Pulm Hypertension INPATIENT VISIT TRACKING (1 MO.) Visit Date Location [facility] TypeDx/Complaint -------- ------- 02/01/2025 15:37 [facility] Observation UpperRespiratory, SOB, on O2 Pulm Hypertension ED VISIT COUNT (12 MO.) Visits Location ------ --------- [address] [place] [address] Total Note: Visits indicate total known visits. --CARE GUIDELINES-- (Below are the most recent care guidelines entered by a Medicine careprovider in [facility]. If Medicine guidelines do not exist in [facility], the mostrecent care guideline entered by an external hospital care provider isdisplayed.) [facility] has no Care Guidelines for this patient. Security Events No recent Security Events currently on file --CARE PROVIDERS-- CARE PROVIDERS Name Phone Type Service Dates ---- ----- ---- KIARRA DE OLIVEIRA [phone] Family Medicine Unknown -Current External Attending Physician OTHER [facility] al Result [facility] * (ABNORMAL) Comprehensive Metabolic Panel (07/30/2024 10:56 AM PDT) Sodium 133(L) 135 - 145 meq/L 07/30/2024 1:40 PM PDT [facility] Dept of Lab Med Potassium 3.1(L) 3.6 - 5.2 meq/L 07/30/2024 1:40 PM PDT [facility] Dept of Lab Med Chloride 106 98 - 108 meq/L 07/30/2024 1:40 PM PDT [facility] Dept of Lab Med Carbon Dioxide, Total 18(L) 22 - 32 meq/L 07/30/2024 1:40 PM PDT [facility] Dept of Lab Med Anion Gap 9 4 - 12 07/30/2024 1:40 PM PDT [facility] Dept of Lab Med Glucose 101 62 - 125 mg/dL 07/30/2024 1:40 PM PDT [facility] Dept of Lab Med Urea Nitrogen 16 8 - 21 mg/dL 07/30/2024 1:40 PM PDT [facility] Dept of Lab Med Creatinine 0.99 0.38 - 1.02 mg/dL 07/30/2024 1:40 PM PDT [facility] Dept of Lab Med Protein (Total) 8.0 6.0 - 8.2 g/dL 07/30/2024 1:40 PM PDT [facility] Dept of Lab Med Albumin 4.0 3.5 - 5.2 g/dL 07/30/2024 1:40 PM PDT [facility] Dept of Lab Med Bilirubin (Total) 0.5 0.2 - 1.3 mg/dL 07/30/2024 1:40 PM PDT [facility] Dept of Lab Med Calcium 9.3 8.9 - 10.2 mg/dL 07/30/2024 1:40 PM PDT [facility] Dept of Lab Med AST (GOT) 20 9 - 38 U/L 07/30/2024 1:40 PM PDT [facility] Dept of Lab Med Alkaline Phosphatase (Total) 126 31 - 132 U/L 07/30/2024 1:40 PM PDT [facility] Dept of Lab Med ALT (GPT) 8 7 - 33 U/L 07/30/2024 1:40 PM PDT [facility] Dept of Lab Med eGFR by CKD-EPI 2020 >60 >59 mL/min/1.7 3_m2 07/30/2024 1:40 PM PDT [facility] Dept of Lab Med Blood 07/30/2024 10:5 6 AM PDT Ricardo Quick MD LAB BLOOD ORDERABLES Fin al Result [facility] DEPT OF LAB MED [id number] [place] [address] [facility] [id number] [place] [address] * Colonoscopy (11/19/2021 1:33 PM PDT) Anatomical Region Laterality Modality Other 11/19/2021 12:1 9 PM PDT Narrative 11/19/2021 3:08 PM PDT [facility] Patient Name: Kane Montez Procedure Date: 11/19/2021 12:19 PM Date of : 1970 Attending MD: Maria Elena Camara MD Instrument Name: [id number] Exam: Colonoscopy Indications: Hematochezia, Melena, Iron deficiency [...] oxygen saturations were monitored continuously. The Olympus [id number] HD Slim Video Colonoscope was introduced through [...] Note Maria Elena Camara MD - 11/19/2021 [facility] Patient Name: Kane Montez Procedure Date: 11/19/2021 12:19 PM Date of : 1970 Attending MD: Maria Elena Camara MD Instrument Name: [id number] Exam: Colonoscopy Indications: Hematochezia, Melena, Iron deficiency [...] and oxygensaturations were monitored continuously. The Olympus [id number] HD Slim Video Colonoscope was introducedthrough the [...] Antibody Screen (09/15/2021 9:22 AM PDT) Pathologist [facility] HIV Antigen and Antibody Result Nonreactive NREA 09/15/2021 4:01 PM PDT [facility] Lab Med HIV Antigen and Antibody Interpretation Nonreactive. No evidence of infection with HIV-1 or HIV-2. 09/15/2021 4:01 PM PDT [facility] Med Blood specimen (specimen) 09/15/2021 9:22 AM PDT us Jeremías Carvalho MD LAB BLOOD ORDERABLES Fi nal Result [facility] [address] [place] [id number], [address] [place] [address] [facility] [address] [place] [address], [address] [place] [address] * CTA Chest PE w Contrast - [...] Result Negative NRN 12/25/2018 3:24 PM PST [facility] Stool specimen (specimen) 12/24/2018 3:51 PM PST 12/24/2018 3:51 PM PST us Feliberto Kaplan PA-C LAB BODY FLUIDS AND STOOL S ORDERABLES Final Result [facility] [id number] [address] * HPV ONLY (12/19/2018 12:00 AM PST) Demographics DEMOGRAPHICS DRAWN FROM PATHOLOGY REPORT PATIENT: KANE MONTEZ ([facility]) : 1970 SEX: F . CASE: [id number] COLLECTED: Dec 19 2018 RECEIVED: Dec 20 2018 [facility] PATHOLOGY/C YTOLOGY Report Path/Cyto PATIENT HISTORY: LMP: No LMP given SPECIMEN SOURCE: A) ThinPrep Vial - Endo/ecto cervical CYTOLOGIC IMPRESSION: Negative for intraepithelial lesions or malignancy SAMPLING ADEQUACY: Endocervical cells / metaplastic cells absent. Sample may not be circulation sales representative of the transformation zone. MOLECULAR [...] Am J Clin Pathol 2011; 135:468-475 NL Information Assistant Electronically signed 12/21/2018 Testing Performed At: [facility], [address], [place], [address]. HPV test results added on December 24, 2018. The Pap smear is a screening test designed to aid in the detection of the premalignant and malignant conditions of the uterine cervix. It is not a diagnostic procedure and should not be used as the sole means of detecting cervical cancer. Both false-positive and false-negative reports do occur. [facility] PATHOLOGY/C YTOLOGY Cytologic Impression Negative for intraepithelial lesions or malignancy [facility] PATHOLOGY/C YTOLOGY HPV Presence High Risk HPV Screening Results: NEGATIVE [facility] PATHOLOGY/C YTOLOGY 12/19/2018 12/20/2018 Feliberto Kaplan PA-C LAB CYTOLOGY ORDERABLES E dited Result - Final [facility] PATHOLOGY/CYTOLOGY * Cervical (and Vaginal) Cancer Screening (12/19/2018 12:00 AM PST) Not Reported SAMPLING ADEQUACY: Endocervical cells / metaplastic cells absent. Sample may not be circulation sales representative of the transformation zone. CYTOLOGIC IMPRESSION: Negative for intraepithelial lesions or malignancy MOLECULAR STUDIES: High Risk HPV Screening Results: NEGATIVE [facility] Case Report PATIENT HISTORY: LMP: No LMP given SPECIMEN SOURCE: A) ThinPrep Vial - Endo/ecto cervical CYTOLOGIC IMPRESSION: Negative for intraepithelial lesions or malignancy SAMPLING ADEQUACY: Endocervical cells / metaplastic cells absent. Sample may not be circulation sales representative of the transformation zone. MOLECULAR [...] Am J Clin Pathol 2011; 135:468-475 NL Information Assistant Electronically signed 12/21/2018 Testing Performed At: [facility], [address], [place], [address]. HPV test results added on December 24, 2018. [facility] PATH[facility] Cytologic Impression Negative for intraepithelial lesions or malignancy [facility] PATHOLOGY LAB AP HISTORIC HPV PRESENCE High Risk HPV Screening Results: NEGATIVE [facility] PATHOLOG[facility] Not Reported Eusebio WRIGHT, Trace Dao (Interface) - [place] [address] [facility] PATHOLOG[facility] Not Reported Req Data Info - System, automated - (zzzSysAuto) - 12/03/2019 Type of Case: UWPN Accessioned At: [facility] Epic Order Location: [facility] Last menstrual period: No LMP given HPV Testing: Pap with Co-Test HPV Diagnostic Code: Z12.4 General Order Comments: History->Screening Include Mol Test Inst in Rpt?: Y Order Comments: History->Screening Diagnostic Codes: Z12.4 Other: Source Unspecified HOV Encounter: [id number] [facility] PATHOLOG[facility] Not Reported Slide Label Location Status Last_scanned Intended_for A-1 multimedia services coordinator screen [facility] Slide Room In Slide Rm Dec 26 2018 8:17AM Slide location information is current as of May 02, 2020. [facility] TOPOGRAPHY UNKNOWN / Unknown 12/19/2018 12/20/2018 Feliberto Kaplan PA-C LAB CYTOLOGY ORDERABLES E dited Result - Final [facility] [address] [facility] [id number] [place] [address], [facility] [phone] * LIPID PANEL (07/26/2016 4:53 PM PDT) Total Cholesterol 148 <200 mg/dL 017 9:43 PM PDT [facility] Triglyceride 114 <150 mg/dL 07/26/2016 9:43 PM PDT [facility] HDL Cholesterol 40 >39 mg/dL 7 9:43 PM PDT [facility] Cholesterol (LDL) 85 <130 mg/dL 017 9:43 PM PDT [facility] Non-HDL Cholesterol 108 0 - 159 mg/dL 07/26/2016 9:43 PM PDT [facility] Cholesterol/HDL Ratio 3.7 07/26/2016 9:43 PM PDT [facility] Lipid Panel, Additional Info. (NOTE) 07/26/2016 9:43 PM PDT [facility] Comment: For complete information to help interpret the lipid panel, please use the National Cholesterol Education Program (NCEP) guideline based reference range comments found here: http://web.labmed.[facility].edu/tests/chemistry/LIPID Serum specimen (specimen) 07/26/2016 4:53 PM PDT 07/26/2016 9:09 PM PDT us Dalia Washington MD LAB BLOOD ORDERABLES Final R esult [facility] LAB MED #[id number] [address] [place] [address] from Last 3 Months or Most Recently Relevant to Health Maintenance Insurance Member Subscriber Plan / Payer (Ef fective 2011-Present) Name:Kane Montez Member ID:[id number] Relation to Subscriber:Self Name:Kane Montez Subscriber ID:[id number] Payer ID:[id number] Group ID:[id number] Type:Medicaid Address: [facility] [address] [place] [address] [facility] [place] [address] [place] [address] MED[place]ARE [place] Member Subscriber Plan / Payer (Ef fective 2011-Present) Name:Kane Montez Member ID:[id number] Relation to Subscriber:Self Name:Kane Montez Subscriber ID:[id number] Payer ID:[id number] Group ID:[id number] Type:Medicaid Address: [address] [address] [facility] MEDICAID Member Subscriber Plan / Payer (Ef fective 2011-Present) Name:Kane Montez Member ID:[id number] Relation to Subscriber:Self Name:Kane Montez Subscriber ID:[id number] Payer ID:[id number] Group ID:[id number] Type:Medicaid Address: [address] [address] Advance Directives For more information, please contact: [phone] * Full Code (Latest Code Status on File) Date Activated Date Inactivated Comments 11/17/2021 2:29 AM 11/21/2021 7:54 PM * Full Code Date Activated Date Inactivated Comments 09/14/2021 10:12 PM 09/17/2021 6:36 PM * Full Code Date Activated Date Inactivated Comments 02/06/2021 8:48 PM 02/15/2021 6:46 PM Healthcare Agents on File Name Relationship Healthcare Agent Relationship Communication Uma Lee Health Care Agent Care Teams Dimension Quarry Supervisor Relationship Specialty Start Date End Date Mary Wren MD PCP - General Internal Medicine 09/17/21 Mahesh Lee MD Internal Medicine 11/13/13 Anne Miranda, secured entrance monitor Medical Oncology 06/17/14 Lucy Serrano, secured entrance monitor Medical Oncology 06/17/14 Edy Gordon, RN Infusion Unknown Physician Specialty 06/17/14 González Arriaga MD Pulmonary Disease 08/21/19 González Arriaga MD Attending Pulmonary Disease 02/19/20
--- NOTE | 2025-02-03 08:59 | P.PN_ITS ---
Subjective Subjective Interval history: Chief complaint: She was improving, was able to go from 7-6 L this morning. Intermittent cough. No chest pain. Progressive shortness of breath and increasing oxygen man in a oxygen-dependent patient with COPD and pneumonia History of present illness: 54-year-old female on 4 L of oxygen nasal cannula at baseline has been having nonproductive cough increasing shortness for breath at rest fever or chills and body aches and oxygen saturations below 90 at home. She has a history of pulmonary hypertension on prostaglandin Financial Engineer is a Dr. Quick at [facility]. Findings in the emergency department significant for mild leukopenia white count 3.5 right upper lobe infiltrate on CT angio otherwise metabolic and hemogram on remarkable moderate elevation of BNP likely secondary to chronic cor pulmonale CT angio: No pulmonary embolus. Left upper lobe consolidation concerning for pneumonia. Dilated main pulmonary artery which can be seen in the setting of pulmonary hypertension. Mildly increased size of irregular right upper lobe 8 mm nodule since 2021. Recommend follow-up CT chest in 6 months to demonstrate stability. Overnight events: Remains on oxygen. 7 liters. O: T 97.4?, BP 119/71, pulse 85, respiration 20, SaO2 91% 7 L. NAD, alert and oriented. Fluent speech. Lungs are clear, normal rate and effort. Heart is regular, no murmur gallop or rub. Abdomen is soft, non distended. Extremities are free of edema. A/P: 1. CAP , active. 2. MAITE, stable. 3. PHtn, stable. PLAN: -continue antibiotics. -monitor cultures. -wean oxygen as able. -OOB. MARII: 1-2 days. She needs a 2nd night to wean oxygen down from 7 L and continue IV antibiotics. Exam Vital Signs (past 8 hours): Fraction of Inspired Oxygen 40 SaO2/FiO2 Ratio 227 Oxygen Delivery Method CPAP Oxygen Flow Rate 7 Objective Labs 02/01/25 13:34 02/01/25 13:34 [facility] Medical History Sleep apnea Morbid obesity Congestive heart failure Pulmonary hypertension Social History household members: family Smoking Status: Current some day smoker alcohol intake: current Assessment & Plan Time-Based Coding :: [TOTAL MINUTES] spent with patient and on the chart (including review of chart, obtaining history, exam, reviewing outside data, placing orders, documenting exam and treatment plan, and counseling patient) on [DATE]. Quality VTE Deep Vein Thrombosis/Pulmonary Embolism Present on Admission: No
[2025-02-03 09:07] VITALS: PULSE 87; RESP 18; O2SAT 90
[2025-02-03] MEDS: BUDESONIDE 0.5 MG/2 ML NEB INH (09:07)
[2025-02-03] MEDS: ALBUTEROL 2.5 MG/3 ML NEB (ADULT) INH ×3 (09:07→19:14)
[2025-02-03] MEDS: FUROSEMIDE 20 MG TABLET PO (09:55)
[2025-02-03] MEDS: POTASSIUM CHLORIDE 20 MEQ TAB 60 MEQ PO (09:56)
[2025-02-03] MEDS: SPIRONOLACTONE 25 MG TABLET 50 MG PO (09:57)
[2025-02-03] MEDS: POTASSIUM CHLORIDE 10 MEQ TAB PO (09:57)
[2025-02-03] MEDS: PANTOPRAZOLE DR 40 MG TABLET PO (10:01)
[2025-02-03 15:07] VITALS: PULSE 89; RESP 20; O2SAT 93
--- NOTE | 2025-02-03 16:26 | CM.DPNOTE ---
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 no new needs at this time. P: home with OP f/u tomorrow and dtr support. will continue to follow closely should any additional DCP needs arise ERLINDA Bahena
[2025-02-03] MEDS: AZITHROMYCIN 500 MG in DEXTROSE 5% IN WATER 250 ML 250 MG IV (16:38)
[2025-02-03 19:00] VITALS: BP 117/73; PULSE 93; RESP 20; TEMP 36.4; O2SAT 94
[2025-02-03 19:14] VITALS: PULSE 95; RESP 20; O2SAT 94
[2025-02-03] MEDS: guaiFENesin Solution 100 MG/5 ML UDC 200 MG PO (21:32)
[2025-02-03] MEDS: MELATONIN 3 MG TABLET 6 MG PO (21:33)
[2025-02-04] MEDS: LEVOTHYROXINE 100 MCG TABLET 200 MCG PO (04:53)
[2025-02-04] MEDS: methylPREDNISolone succ 125 MG/2 ML VIAL 80 MG IV (04:54)
--- NOTE | 2025-02-04 06:23 | PC.NURSE ---
Oxygen requirements continue to decrease; currently on 6 L O2 via oxymask while awake and the same with her CPAP at night. Home O2 requirement is 4 L at baseline. Lung sounds are clear and diminished bilaterally and Pt reports decreased SOB w/exertion.? Pt tolerated shower during day shift, was able to have several hours of uninterrupted sleep, and states that she is feeling almost back to her old self. No acute respiratory distress noted.
[2025-02-04] MEDS: PANTOPRAZOLE DR 40 MG TABLET PO (06:50)
[2025-02-04] MEDS: ALBUTEROL 2.5 MG/3 ML NEB (ADULT) INH ×2 (07:40→11:32)
[2025-02-04] MEDS: BUDESONIDE 0.5 MG/2 ML NEB INH (07:40)
[2025-02-04 07:46] VITALS: PULSE 92; RESP 18; O2SAT 95
--- NOTE | 2025-02-04 08:11 | P.PN_ITS ---
Subjective Subjective Interval history: A/P: 1. CAP , active. 2. MAITE, stable. 3. PHtn, stable. PLAN: -continue antibiotics. -monitor cultures. -wean oxygen as able. -OOB. MARII: 1-2 days. She needs a 2nd night to wean oxygen down from 7 L and continue IV antibiotics. Summary: Chief complaint: She was improving, was able to go from 7-6 L this morning. Intermittent cough. No chest pain. Progressive shortness of breath and increasing oxygen man in a oxygen-dependent patient with COPD and pneumonia History of present illness: 54-year-old female on 4 L of oxygen nasal cannula at baseline has been having nonproductive cough increasing shortness for breath at rest fever or chills and body aches and oxygen saturations below 90 at home. 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 Quick at [facility]. Findings in the emergency department significant for mild leukopenia white count 3.5 right upper lobe infiltrate on CT angio otherwise metabolic and hemogram on remarkable moderate elevation of BNP likely secondary to chronic cor pulmonale CT angio: No pulmonary embolus. Left upper lobe consolidation concerning for pneumonia. Dilated main pulmonary artery which can be seen in the setting of pulmonary hypertension. Mildly increased size of irregular right upper lobe 8 mm nodule since 2021. Recommend follow-up CT chest in 6 months to demonstrate stability. Overnight events: Remains on oxygen. 7 liters. O: T 97.4?, BP 119/71, pulse 85, respiration 20, SaO2 91% 7 L. NAD, alert and oriented. Fluent speech. Lungs are clear, normal rate and effort. Heart is regular, no murmur gallop or rub. Abdomen is soft, non distended. Extremities are free of edema. Exam Vital Signs (past 8 hours): - 02/04/25 07:46 Pulse Rate 92 H Respiratory Rate 18 Pulse Oximetry 95 Oxygen Delivery Method Oximask Oxygen Flow Rate 5 Fraction of Inspired Oxygen 40 Fraction of Inspired Oxygen 40 SaO2/FiO2 Ratio 237 Oxygen Delivery Method Oximask Oxygen Flow Rate 5 Objective Labs 02/01/25 13:34 02/01/25 13:34 [facility] Medical History Sleep apnea Morbid obesity Congestive heart failure Pulmonary hypertension Social History household members: family Smoking Status: Current some day smoker alcohol intake: current Assessment & Plan Time-Based Coding :: [TOTAL MINUTES] spent with patient and on the chart (including review of chart, obtaining history, exam, reviewing outside data, placing orders, documenting exam and treatment plan, and counseling patient) on [DATE]. Quality VTE Deep Vein Thrombosis/Pulmonary Embolism Present on Admission: No
[2025-02-04 08:17] VITALS: BP 107/59; PULSE 71; RESP 16; TEMP 35.9; O2SAT 94
[2025-02-04] MEDS: FUROSEMIDE 20 MG TABLET PO (09:20)
[2025-02-04] MEDS: SPIRONOLACTONE 25 MG TABLET 50 MG PO (09:30)
[2025-02-04] MEDS: POTASSIUM CHLORIDE 10 MEQ TAB PO (09:31)
[2025-02-04] MEDS: POTASSIUM CHLORIDE 20 MEQ TAB 60 MEQ PO (09:31)
--- NOTE | 2025-02-04 11:21 | CM.DPNOTE ---
DCP note [employer]OUT [employer]ITION[employer] reviewed EMR per provider anticipate another day to wean off oxygen. no new needs identified at this time. P: anticipate home tomorrow with spouse support and OP f/u. will continue to follow should any DCP needs arise ERLINDA Bahena
[2025-02-04 11:32] VITALS: PULSE 88; RESP 18; O2SAT 95
--- NOTE | 2025-02-04 11:40 | P.DS_ITS ---
History of Present Illness History of Present Illness Chief complaint: Upper Respiratory, SOB, on O2 Pulm Hypertension Narrative: From H&P: Chief complaint: Progressive shortness of breath and increasing oxygen man in a oxygen-dependent patient with COPD and pneumonia History of present illness: 54-year-old female on 4 L of oxygen nasal cannula at baseline has been having nonproductive cough increasing shortness for breath at rest fever or chills and body aches and oxygen saturations below 90 at home. 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 Findings in the emergency department significant for mild leukopenia white count 3.5 right upper lobe infiltrate on CT angio otherwise metabolic and hemogram on remarkable moderate elevation of BNP likely secondary to chronic cor pulmonale CT angio: No pulmonary embolus. Left upper lobe consolidation concerning for pneumonia. Dilated main pulmonary artery which can be seen in the setting of pulmonary hypertension. Mildly increased size of irregular right upper lobe 8 mm nodule since 2021. Recommend follow-up CT chest in 6 months to demonstrate stability. Hospital Course: She was admitted and treated for pneumonia and acute on chronic hypoxic respiratory failure. She improved over the last 24 hours and requested discharge. She is on home O2 at 3L. A/P: 1. Acute on chronic hypoxemic respiratory failure 2. Pneumonia 3. Congestive heart failure 4. Pulmonary hypertension 5. Obstructive sleep apnea 6. Depression PLAN: -Discharge on PO prednisone and Abx. Close FU with PCP. Discharge Providers Provider Date of admission: 02/01/25 15:37 Discharge Date: 02/04/25 Primary care physician: ALE Abad Discharge provider: Siddhartha Herbert MD Summary Status at Discharge Cognitive/behavioral status at discharge: oriented Functional status at discharge: independent ambulation Overall status at discharge: patient is progressing back to baseline Time Spent with Patient Time spent: Greater than 30 minutes Exam Vital Signs (past 8 hours): - 02/04/25 07:00 02/04/25 07:46 02/04/25 08:17 Temperature 96.6 F L Pulse Rate 92 H 71 Respiratory Rate 18 16 Blood Pressure 107/59 L Pulse Oximetry 95 94 Oxygen Delivery Method Oximask Oximask Oxygen Flow Rate 5 4 Fraction of Inspired Oxygen 40 02/04/25 11:32 Temperature Pulse Rate 88 Respiratory Rate 18 Blood Pressure Pulse Oximetry 95 Oxygen Delivery Method Oximask Oxygen Flow Rate 5 Fraction of Inspired Oxygen 40 Fraction of Inspired Oxygen 40 SaO2/FiO2 Ratio 237 Oxygen Delivery Method Oximask Oxygen Flow Rate 5 Objective Labs 02/01/25 13:34 02/01/25 13:34 PFSH Medical History Sleep apnea Morbid obesity Congestive heart failure Pulmonary hypertension Social History household members: family Smoking Status: Current some day smoker alcohol intake: current Discharge Plan Discharge Plan Patient Disposition: Home Provider Discharge Comment: Improved and stable for discharge. Has home oxygen. Discharge orders & Medications Prescriptions: New prednisone 50 mg tablet 50 mg PO DAILY Qty: 5 0RF levofloxacin 750 mg tablet 750 mg PO DAILY Qty: 7 0RF codeine-guaifenesin 10-100 mg/5 mL liquid 5 ml PO Q6H PRN (Reason: cough) Qty: 200 0RF Continued triamcinolone acetonide 0.025 % ointment 1 applic topical TID Qty: 454 0RF furosemide 40 mg tablet 40 mg PO DAILY albuterol sulfate 90 mcg/actuation HFA aerosol inhaler 90 mcg INHALATION BID spironolactone 50 mg tablet 50 mg PO DAILY ambrisentan 10 mg tablet 10 mg PO DAILY fluoxetine 60 mg tablet 60 mg PO DAILY tadalafil (pulm. hypertension) 20 mg tablet 40 mg PO DAILY levothyroxine 100 mcg tablet 200 mcg PO DAILY potassium chloride 20 mEq tablet,ER particles/crystals 60 meq PO DAILY Uptravi 1,400 mcg tablet 1,400 mcg PO BID Patient Comments: pt takes at 3am and 3pm Discontinued levofloxacin 250 mg Tablet 750 mg PO 0700 Qty: 5 0RF Medication counseling provided by Pharmacist: No Follow up/Referrals: Manolo Olmos ARNP [Primary Care Provider, Family Practice] Discharge Health Status Multidrug resistant organism: No MDRO Diet/Activity/Treatments Diet: Regular Activity: As tolerated. Visit Report/Discharge Packet Instructions: DI for Pneumonia -- Adult Stand Alone Forms: Patient Portal/API, Influenza Vaccine Info, Notice of Privacy Practices, Inpatient vs Outpatient, Pneumococcal Vaccine Info, Pt. Rights & Responsibilities Discharge Data Primary Care Provider: Manolo Olmos Quality VTE Deep Vein Thrombosis/Pulmonary Embolism Present on Admission: No
--- NOTE | 2025-02-04 12:30 | PC.NURSE ---
Discharge note: Up OOb to chair and BR. Discharge instructions given to patient, discussed importance of F/U with PMD, continue home O2, new Rx adherence. Discussed importance of signs of worsening symptoms, and home safety. Verbalized understanding of discharge instructions. Home via private vehicle accompanied by family. Rx's to be picked up on way home at [facility].
== END 2025-02-04 13:19 | disposition home or self-care (01) | DRG 193 ==
LOC: ED 13:36 → AC 15:38
PROVIDERS: Admitting Provider Internal Medicine; Emergency Provider Family Medicine; Referring Provider Family Medicine; Visit Provider Internal Medicine
DX: J18.9 Pneumonia, unspecified organism (principal); J96.21 Acute and chronic respiratory failure with hypoxia; J44.1 Chronic obstructive pulmonary disease with (acute) exacerbation; J44.0 Chronic obstructive pulmonary disease with (acute) lower respiratory infection; I27.20 Pulmonary hypertension, unspecified; G47.33 Obstructive sleep apnea (adult) (pediatric); F17.200 Nicotine dependence, unspecified, uncomplicated; I50.9 Heart failure, unspecified; F32.A Depression, unspecified; Z99.81 Dependence on supplemental oxygen
CPT/HCPCS: 36415; 71045; 71275; 80053; 81003; 82805; 83605; 83690; 83735; 83880; 84484; 85025; 87040; 87633; 93005; 94640; 94660; 94762; 96365; 96367; 96375; 99285; J0696; J2919; J7050; J7060; J7613; Q9967